=== PATIENT | female | born 1975 | race Caucasian/White ===

== ENCOUNTER 2019-07-06 05:31 | Emergency (ER) | payer OTHER ==
--- NOTE | 2019-07-06 06:02 | ERPHSYRPT ---
- History of Present Illness Historian: patient Exam Limitations: no limitations Patient Subjective Stated Complaint: pt states she has been having abdominal pain since 1999 yesterday, that has worsened overnight. pt has been diarrhea and vomiting and has had pain for last five hours consistantly. Triage Nursing Assessment: pt alert and orietented. rates pain in abdomen Timing/Duration: yesterday Activities at Onset: none Quality: stabbing Abdominal Pain Onset Location: periumbilical Pain Radiation: no radiation Severity of Pain-Max: mild Severity of Pain-Current: mild Modifying Factors: Improves With: vomiting Associated Symptoms: diarrhea Previous symptoms: no prior history Hx Tetanus, Diphtheria Vaccination/Date Given: Yes (UP TO DATE) Hx Influenza Vaccination/Date Given: Yes Hx Pneumococcal Vaccination/Date Given: Yes <MIMA RODRIGUEZ - Last Filed: 07/06/19 06:14> <LISA CLAYTON - Last Filed: 07/06/19 09:53> - History of Present Illness Time Seen by Provider: 07/06/19 06:01 Physician History: N/V/D starting last night around 1999. Only abdominal surgery is a . No falls or trauma. Diarrhea has improved. Patient has continued pain. (MIMA RODRIGUEZ) Allergies/Adverse Reactions: grapefruit Allergy (Verified 01/13/16 18:31) Hives latex Allergy (Verified 06/30/15 12:32) Hives hives on hands Latex, Natural Rubber Allergy (Verified 01/13/16 18:30) morphine Allergy (Verified 01/13/16 15:27) codeine Adverse Reaction (Severe, Verified 01/13/16 18:30) Home Medications: Amlodipine Besylate 5 mg [Norvasc 5 mg] 5 mg PO DAILY 03/27/15 [History] Famotidine 40 mg PO HS 01/13/16 [History] Simvastatin 20 mg PO HS 01/13/16 [History] Citalopram Hydrobromide 20 mg* [ceLEXa 20 MG] 20 mg PO DAILY 07/06/19 [ History] - Review of Systems Constitutional: No Fever, No Chills Eyes: No Symptoms Ears, Nose, & Throat: No Symptoms Respiratory: No Cough, No Dyspnea Cardiac: No Chest Pain, No Edema, No Syncope Abdominal/Gastrointestinal: Abdominal Pain, Nausea, Vomiting, Diarrhea Genitourinary Symptoms: No Dysuria Musculoskeletal: No Back Pain, No Neck Pain Skin: No Rash Neurological: No Dizziness, No Focal Weakness, No Sensory Changes Psychological: No Symptoms Endocrine: No Symptoms All Other Systems: Reviewed and Negative <MIMA RODRIGUEZ - Last Filed: 07/06/19 06:14> - Past Medical History Pertinent Past Medical History: Yes Neurological History: No Pertinent History ENT History: No Pertinent History Cardiac History: High Cholesterol, Hypertension Respiratory History: No Pertinent History Endocrine Medical History: No Pertinent History Musculoskeletal History: No Pertinent History GI Medical History: No Pertinent History, GERD History: No Pertinent History Psycho-Social History: No Pertinent History Female Reproductive Disorders: No Pertinent History, Abnormal Uterine Bleeding, Other Other Medical History: 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 - Past Surgical History Past Surgical History: Yes Neuro Surgical History: No Pertinent History Cardiac: No Pertinent History Respiratory: No Pertinent History Gastrointestinal: No Pertinent History, Other Genitourinary: No Pertinent History Musculoskeletal: No Pertinent History, Other Female Surgical History: Hysterectomy, Tubal Ligation, Section, Other Other Surgical History: 2 , MASS ON OVARY REMOVED - Social History Smoking Status: Current every day smoker How long have you smoked: 20 Exposure to second hand smoke: No Drug Use: none Patient Lives Alone: Yes - Female History Hx Last Menstrual Period: hysterectomy Hx Now: No <MIMA RODRIGUEZ - Last Filed: 07/06/19 06:14> - Physical Exam General Appearance: no apparent distress, alert Eye Exam: PERRL/EOMI, eyes nml inspection Ears, Nose, Throat Exam: normal ENT inspection, pharynx normal, moist mucous membranes Neck Exam: normal inspection, non-tender, supple, full range of motion Respiratory Exam: normal breath sounds, lungs clear, No respiratory distress Cardiovascular Exam: regular rate/rhythm, normal heart sounds Gastrointestinal/Abdomen Exam: soft, tenderness (periumbilical tenderness without rebound or guarding), No mass Back Exam: normal inspection, normal range of motion, No CVA tenderness, No vertebral tenderness Extremity Exam: normal inspection, normal range of motion, pelvis stable Neurologic Exam: alert, oriented x 3, cooperative, normal mood/affect, nml cerebellar function, sensation nml, No motor deficits Skin Exam: normal color, warm, dry SpO2: 100 <MIMA RODRIGUEZ - Last Filed: 07/06/19 06:14> - Nursing Vital Signs Nursing Vital Signs: Initial Vital Signs Temperature 97.9 F 07/06/19 05:34 Pulse Rate 62 07/06/19 05:34 Respiratory Rate 18 07/06/19 05:34 Blood Pressure 177/80 07/06/19 05:34 O2 Sat by Pulse Oximetry 100 07/06/19 05:34 Pain Scale Pain Intensity 8 Ordered Tests: Active Orders 24 hr Category Date Time Status ABDOMEN AND PELVIS W CONTRAST [CT] Stat Exams 07/06/19 06:11 Completed CBC W DIFF Stat Lab 07/06/19 06:10 Completed CMP Stat Lab 07/06/19 06:10 Completed HCG QUALITATIVE,SERUM Stat Lab 07/06/19 06:10 Completed LIPASE Stat Lab 07/06/19 06:10 Completed UA W/RFX UR CULTURE Stat Lab 07/06/19 06:17 Completed Medication Summary Discontinued Medications Generic Name Dose Route Start Last Admin Trade Name Freq PRN Reason Stop Dose Admin Hydromorphone HCl 0.5 mg 07/06/19 07:12 07/06/19 07:18 Hydromorphone 1 Mg/Ml Ampule IV 07/06/19 07:13 0.5 mg STAT ONE Administration Hydromorphone HCl Confirm 07/06/19 07:16 Hydromorphone 1 Mg/Ml Ampule Administered 07/06/19 07:17 Dose 1 mg .ROUTE .STK-MED ONE Sodium Chloride 1,000 mls @ 999 mls/hr 07/06/19 06:08 07/06/19 07:14 Sodium Chloride 0.9% 1000 Ml IV 07/06/19 07:08 Infused .Q1H1M STA Infusion Sodium Chloride Confirm 07/06/19 06:12 Sodium Chloride 0.9% 1000 Ml Administered 07/06/19 06:13 Dose 1,000 mls @ ud .ROUTE .STK-MED ONE Sodium Chloride 1,000 mls @ 999 mls/hr 07/06/19 07:12 07/06/19 08:27 Sodium Chloride 0.9% 1000 Ml IV 07/06/19 08:12 Infused .Q1H1M STA Infusion Sodium Chloride Confirm 07/06/19 07:16 Sodium Chloride 0.9% 1000 Ml Administered 07/06/19 07:17 Dose 1,000 mls @ ud .ROUTE .STK-MED ONE Ketorolac Tromethamine 30 mg 07/06/19 06:08 07/06/19 06:15 Toradol 30 Mg Injection IV 07/06/19 06:09 30 mg STAT ONE Administration Ketorolac Tromethamine Confirm 07/06/19 06:12 Toradol 30 Mg Injection Administered 07/06/19 06:13 Dose 30 mg .ROUTE .STK-MED ONE Ondansetron HCl 4 mg 07/06/19 06:08 07/06/19 06:15 Zofran 4 Mg/2 Ml Vial IV 07/06/19 06:09 4 mg STAT ONE Administration Ondansetron HCl Confirm 07/06/19 06:12 Zofran 4 Mg/2 Ml Vial Administered 07/06/19 06:13 Dose 4 mg .ROUTE .STK-MED ONE Lab/Rad Data: Laboratory Result Diagrams 07/06/19 06:10 07/06/19 06:10 Laboratory Results 07/06/19 07/06/19 07/06/19 Range/Units 09:00 06:17 06:10 WBC (4.0-10.5) K/mm3 RBC (4.1-5.4) M/mm3 Hgb (12.0-16.0) gm/dl Hct (35-47) % MCV (78-100) fl MCH (26-32) pg MCHC (32-36) g/dl RDW (11.5-14.0) % Plt Count (150-450) K/mm3 MPV (6-9.5) fl Gran % (36.0-66.0) % Eos # (Auto) (0-0.5) Absolute Lymphs (auto) (1.0-4.6) Absolute Monos (auto) (0.0-1.3) Lymphocytes % (24.0-44.0) % Monocytes % (0.0-12.0) % Eosinophils % (0.00-5.0) % Basophils % (0.0-0.4) % Absolute Granulocytes (1.4-6.9) Basophils # (0-0.4) Sodium (137-145) mmol/L Potassium (3.5-5.1) mmol/L Chloride (98-107) mmol/L Carbon Dioxide (22-30) mmol/L Anion Gap (5-15) MEQ/L BUN (7-17) mg/dL Creatinine (0.52-1.04) mg/dL Estimated GFR ML/MIN Glucose (74-106) mg/dL Calcium (8.4-10.2) mg/dL Total Bilirubin (0.2-1.3) mg/dL AST (14-36) U/L ALT (0-35) U/L Alkaline Phosphatase (38-126) U/L Serum Total Protein (6.3-8.2) g/dL Albumin (3.5-5.0) g/dL Lipase (23-300) U/L Serum , Qual NEGATIVE (Negative) Urine Color YELLOW (YELLOW) Urine Appearance CLOUDY (CLEAR) Urine pH 8.0 (5-6) Ur Specific [place] 1.021 (1.005-1.025) Urine Protein 100 (Negative) Urine Ketones NEGATIVE (NEGATIVE) Urine Blood NEGATIVE (0-5) Hiram/ul Urine Nitrite NEGATIVE (NEGATIVE) Urine Bilirubin NEGATIVE (NEGATIVE) Urine Urobilinogen NEGATIVE (0-1) mg/dL Ur Leukocyte Esterase NEGATIVE (NEGATIVE) Urine WBC (Auto) 0-2 (0-5) /HPF Urine RBC (Auto) 0-2 (0-2) /HPF U Epithel Cells (Auto) FEW (FEW) /HPF Urine Bacteria (Auto) RARE (NEGATIVE) /HPF Amorphous Crystals MODERATE (NEGATIVE) /HPF Urine Culture Reflexed NO (NO) Urine Glucose >=500 (NEGATIVE) mg/dL Influenza Type A Ag NEGATIVE (NEGATIVE) Influenza Type B Ag NEGATIVE (NEGATIVE) RSV (PCR) NEGATIVE (Negative) Slides for Path Review 07/06/19 07/06/19 Range/Units 06:10 06:10 WBC 17.6 H (4.0-10.5) K/mm3 RBC 5.30 (4.1-5.4) M/mm3 Hgb 16.0 (12.0-16.0) gm/dl Hct 47.9 H (35-47) % MCV 90.4 (78-100) fl MCH 30.2 (26-32) pg MCHC 33.4 (32-36) g/dl RDW 14.4 H (11.5-14.0) % Plt Count 391 (150-450) K/mm3 MPV 10.3 H (6-9.5) fl Gran % 84.7 H (36.0-66.0) % Eos # (Auto) 0.02 (0-0.5) Absolute Lymphs (auto) 1.89 (1.0-4.6) Absolute Monos (auto) 0.75 (0.0-1.3) Lymphocytes % 10.7 L (24.0-44.0) % Monocytes % 4.3 (0.0-12.0) % Eosinophils % 0.1 (0.00-5.0) % Basophils % 0.2 (0.0-0.4) % Absolute Granulocytes 14.95 H (1.4-6.9) Basophils # 0.03 (0-0.4) Sodium 140 (137-145) mmol/L Potassium 3.8 (3.5-5.1) mmol/L Chloride 107 (98-107) mmol/L Carbon Dioxide 25 (22-30) mmol/L Anion Gap 12.1 (5-15) MEQ/L BUN 15 (7-17) mg/dL Creatinine 0.55 (0.52-1.04) mg/dL Estimated GFR > 60.0 ML/MIN Glucose 176 H (74-106) mg/dL Calcium 9.7 (8.4-10.2) mg/dL Total Bilirubin 0.40 (0.2-1.3) mg/dL AST 25 (14-36) U/L ALT 16 (0-35) U/L Alkaline Phosphatase 49 (38-126) U/L Serum Total Protein 7.6 (6.3-8.2) g/dL Albumin 4.2 (3.5-5.0) g/dL Lipase 124 (23-300) U/L Serum , Qual (Negative) Urine Color (YELLOW) Urine Appearance (CLEAR) Urine pH (5-6) Ur Specific [place] (1.005-1.025) Urine Protein (Negative) Urine Ketones (NEGATIVE) Urine Blood (0-5) Hiram/ul Urine Nitrite (NEGATIVE) Urine Bilirubin (NEGATIVE) Urine Urobilinogen (0-1) mg/dL Ur Leukocyte Esterase (NEGATIVE) Urine WBC (Auto) (0-5) /HPF Urine RBC (Auto) (0-2) /HPF U Epithel Cells (Auto) (FEW) /HPF Urine Bacteria (Auto) (NEGATIVE) /HPF Amorphous Crystals (NEGATIVE) /HPF Urine Culture Reflexed (NO) Urine Glucose (NEGATIVE) mg/dL Influenza Type A Ag (NEGATIVE) Influenza Type B Ag (NEGATIVE) RSV (PCR) (Negative) Slides for Path Review YES - Progress Progress: improved <MIMA RODRIGUEZ - Last Filed: 07/06/19 06:14> - Progress Counseled pt/family regarding: lab results, diagnosis, need for follow-up, rad results <LISA CLAYTON - Last Filed: 07/06/19 09:53> - Progress Progress Note: 07/06/19 06:17 DDX includes , SBO, infection, UTI, viral illness -We will obtain basic labs, fluids, IV access -we will consider CT or ultrasound (MIMA RODRIGUEZ) 07/06/19 09:51 pt sx improved. no more n/v/d. pain gone 07/06/19 09:53 ct no acute process (LISA CLAYTON) <MIMA RODRIGUEZ - Last Filed: 07/06/19 06:14> - Departure Departure Disposition: Home Critical Care Time: No <LISA CLAYTON - Last Filed: 07/06/19 09:53> - Departure Clinical Impression: Vomiting and diarrhea Condition: Stable Referrals: CHRISTIANA HEATH [Primary Care Provider] - Additional Instructions: drink plenty of fluids. follow up with primary doctor for further management. Prescriptions: Ondansetron HCl [Zofran] 4 mg PO TID PRN #10 tablet PRN Reason: Nausea/Vomiting
[2019-07-06] MEDS ORDERED: Sodium Chloride 0.9% 1000 ML 1,000 ML IV STA ×2 (06:08→07:12)
[2019-07-06] MEDS ORDERED: Zofran 4 MG/2 ML VIAL IV ONE (06:08)
[2019-07-06] MEDS ORDERED: TORAdol 30 mg Injection IV ONE (06:08)
[2019-07-06] MEDS ORDERED: Sodium Chloride 0.9% 1000 ML 1,000 ML ONE ×2 (06:12→07:16)
[2019-07-06] MEDS ORDERED: Zofran 4 MG/2 ML VIAL ONE (06:12)
[2019-07-06] MEDS ORDERED: TORAdol 30 mg Injection ONE (06:12)
[2019-07-06 06:16] LABS: Absolute Neutrophil Ct (ANC) 14.95 (1.4-6.9); BASOPHIL % 0.2 % (0.0-0.4); Basophil (Absolute #) 0.03 (0-0.4); Eosinophil % 0.1 % (0.00-5.0); Eosinophil (Absolute #) 0.02 (0-0.5); Hematocrit 47.9 % (35-47); Lymphocyte (Absolute #) 1.89 (1.0-4.6); Lymphocytes % 10.7 % (24.0-44.0); Mean Cell Volume 90.4 fl (78-100); Mean Corpuscular Hemoglobin 30.2 pg (26-32); Mean Corpuscular Hgb Concent. 33.4 g/dl (32-36); Mean Platelet Volume 10.3 fl (6-9.5); Monocyte (Absolute #) 0.75 (0.0-1.3); Monocytes % 4.3 % (0.0-12.0); Neutrophil % 84.7 % (36.0-66.0); Platelet Count 391 K/mm3 (150-450); Red Cell Distribution Width 14.4 % (11.5-14.0); White Blood Count 17.6 K/mm3 (4.0-10.5)
[2019-07-06 06:27] LABS: ALBUMIN 4.2 g/dL (3.5-5.0); ALKALINE PHOSPHATASE 49 U/L (38-126); ANION GAP 12.1 MEQ/L (5-15); BLOOD UREA NITROGEN 15 mg/dL (7-17); CHLORIDE 107 mmol/L (98-107); Calcium 9.7 mg/dL (8.4-10.2); Carbon Dioxide 25 mmol/L (22-30); Creatinine 1 0.55 mg/dL (0.52-1.04); Glucose 176 mg/dL (74-106); LIPASE 124 U/L (23-300); Potassium 3.8 mmol/L (3.5-5.1); SGOT/AST 25 U/L (14-36); SGPT/ALT 16 U/L (0-35); SODIUM 140 mmol/L (137-145); Total Protein 7.6 g/dL (6.3-8.2)
[2019-07-06 06:36] LABS: Amourphous Crystal MODERATE /HPF (NEGATIVE); Appearance CLOUDY (CLEAR); Bacteria RARE /HPF (NEGATIVE); Bilirubin NEGATIVE (NEGATIVE); Blood NEGATIVE Ery/ul (0-5); Epithelial Cells FEW /HPF (FEW); Glucose >=500 mg/dL (NEGATIVE); Ketones NEGATIVE (NEGATIVE); Leukocyte Esterase NEGATIVE (NEGATIVE); Nitrite NEGATIVE (NEGATIVE); Protein,Urine Dip 100 (Negative); Specific Gravity 1.021 (1.005-1.025); Urobilinogen NEGATIVE mg/dL (0-1)
[2019-07-06 06:51] LABS: RBC 0-2 /HPF (0-2); WBC 0-2 /HPF (0-5)
[2019-07-06 06:54] LABS: Slide Review 1 YES
[2019-07-06] MEDS ORDERED: Hydromorphone 1 mg/ml Ampule IV ONE (07:12)
[2019-07-06] MEDS ORDERED: Hydromorphone 1 mg/ml Ampule ONE (07:16)
--- NOTE | 2019-07-06 09:17 | XRAY ---
Indication: Periumbilical pain, nausea, vomiting, diarrhea, and elevated WBC. Multiple contiguous axial images obtained through the abdomen and pelvis using 80 cc Isovue 370 contrast only. Comparison: June 16, 2008. Lung bases are clear. Heart is not enlarged. Noncontrasted stomach and bowel loops appear nonobstructed. Normal appendix. Patient reports hysterectomy. No free fluid/air. Both kidneys enhance and excrete with new 1 cm left mid renal cyst. Remaining liver, gallbladder, pancreas, spleen, adrenal glands, kidneys, ureters, and bladder appear unremarkable. There is now mild scattered aortoiliac calcifications. No AAA or pathologic retroperitoneal lymphadenopathy. Osseous structures intact again with minimal degenerative changes throughout the spine. 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 Impression: 1. New 1 cm left renal cyst and stable L5 spondylolysis without spondylolisthesis. 2. Remaining CT abdomen/pelvis with contrast exam is negative. CT DI 10.03
[2019-07-06 09:48] LABS: INFLUENZA A NEGATIVE (NEGATIVE); INFLUENZA B NEGATIVE (NEGATIVE); RESPIRATORY SYNCTIAL VIRUS NEGATIVE (Negative)
[2019-07-06 09:54] VITALS: BP 135/69; PULSE 69; O2SAT 96
== END 2019-07-06 10:05 | disposition home or self-care (01) ==
LOC: ED 05:31
DX: R11.10 Vomiting, unspecified (principal); R19.7 Diarrhea, unspecified; R10.9 Unspecified abdominal pain; Z79.899 Other long term (current) drug therapy; E78.00 Pure hypercholesterolemia, unspecified; I10 Essential (primary) hypertension
CPT/HCPCS: 36000; 36415; 74177; 80053; 81001; 81025; 83690; 85025; 87631; 96360; 96374; 96375; 99284; J1170; J1885; J2405

== ENCOUNTER 2019-07-08 22:20 | Emergency (ER) | payer OTHER ==
--- NOTE | 2019-07-08 22:32 | ERPHSYRPT ---
- History of Present Illness Time Seen by Provider: 07/08/19 22:31 Source: patient, family () Exam Limitations: clinical condition (pain) Patient Subjective Stated Complaint: Pt is. here with abdominal pain Physician History: Pt is here with c/c of abdominal pain centrally and periumbilically with nausea and occasional vomiting. Pt notes that she was here with the same thing tuesday evening. Pt had a CT that night sand I have reviewed that report. Pt notes that she had eaten and gone to sleep but woke back up with the pain at 20:30. Pt rates her pain at a 10/10. Pt still has her gallbladder and appendix. Pt is a bit irritable about having to explain her pain. Presenting Symptoms: vomiting, abdominal pain Timing/Duration: today, day(s) (hurts today and hurt on tuesday 2 days ago. The pain is bad now. ) Severity of Pain-Max: severe Severity of Pain-Current: severe Modifying Factors: Improves With: nothing Associated Symptoms: nausea, vomiting, abdominal pain Allergies/Adverse Reactions: codeine Allergy (Verified 07/08/19 22:46) morphine Allergy (Verified 07/08/19 22:46) - Review of Systems Constitutional: Fatigue, Malaise Eyes: No Symptoms Ears, Nose, & Throat: No Symptoms Respiratory: No Symptoms Cardiac: No Symptoms Abdominal/Gastrointestinal: Abdominal Pain, Nausea, Vomiting, Constipation, No Diarrhea, No Hematemesis, No Hematochezia, No Dysphagia Genitourinary Symptoms: No Symptoms, No Dysuria, No Frequency, No Hematuria, No Hesitancy Musculoskeletal: Back Pain, No No Symptoms Skin: No Symptoms Neurological: No Symptoms Psychological: No Symptoms Endocrine: No Symptoms Hematologic/Lymphatic: No Anemia, No Easy Bleeding All Other Systems: Reviewed and Negative - Past Medical History Pertinent Past Medical History: No Neurological History: No Pertinent History ENT History: No Pertinent History Cardiac History: No Pertinent History Respiratory History: No Pertinent History Endocrine Medical History: Diabetes Type II Musculoskeletal History: No Pertinent History GI Medical History: No Pertinent History Psycho-Social History: No Pertinent History Female Reproductive Disorders: No Pertinent History - Past Surgical History Neuro Surgical History: No Pertinent History Cardiac: No Pertinent History Respiratory: No Pertinent History Gastrointestinal: No Pertinent History Genitourinary: No Pertinent History Musculoskeletal: No Pertinent History - Social History Smoking Status: Current every day smoker Alcohol Use: None - Female History Hx Now: No - Nursing Vital Signs Nursing Vital Signs: Initial Vital Signs Temperature 37 F 07/08/19 22:36 Pulse Rate 63 07/08/19 22:36 Respiratory Rate 20 07/08/19 22:36 Blood Pressure 203/97 07/08/19 22:36 O2 Sat by Pulse Oximetry 100 07/08/19 22:36 Pain Scale Pain Intensity 10 - Physical Exam General Appearance: moderate distress, irritable Head, Eyes, Nose, & Throat Exam: head inspection normal, EOMI Neck Exam: normal inspection, non-tender, supple Respiratory Exam: normal breath sounds, lungs clear, airway intact, No chest tenderness, No respiratory distress Cardiovascular Exam: regular rate/rhythm, normal heart sounds, No murmur, No friction rub, No gallop, No tachycardia, No bradycardia Gastrointestinal Exam: soft, normal bowel sounds, tenderness (periumbilical area pain and worse with palp.), guarding, No distention, No mass, No pulsatile mass, No hernia, No hepatomegaly, No organomegaly, No bruit Extremities Exam: normal inspection, No edema, No tenderness, No limited range of motion Neurologic Exam: alert, cooperative, 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 ), No confusion, No lethargy Skin Exam: normal color, warm, dry, well perfused, No rash Lymphatic Exam: No adenopathy SpO2 Interpretation: normal Spo2: 100 O2 Delivery: Room Air - Course Nursing assessment & vital signs reviewed: Yes Ordered Tests: Active Orders 24 hr Category Date Time Status ABDOMEN AND PELVIS W/0 CONTRAS [CT] Stat Exams 07/09/19 00:01 Taken AMYLASE Stat Lab 07/08/19 23:09 Completed CBC W DIFF Stat Lab 07/08/19 23:09 Completed CMP Stat Lab 07/08/19 23:09 Completed HCG QUALITATIVE,SERUM Stat Lab 07/08/19 23:09 Completed LIPASE Stat Lab 07/08/19 23:09 Completed Lactic Acid Stat Lab 07/08/19 23:15 Completed UA W/RFX UR CULTURE Stat Lab 07/09/19 02:00 Completed Medication Summary Discontinued Medications Generic Name Dose Route Start Last Admin Trade Name Freq PRN Reason Stop Dose Admin Dicyclomine HCl 20 mg 07/09/19 10:00 07/09/19 01:34 Bentyl 20 Mg PO 08/08/19 09:59 20 mg QID DEUCE Administration Dicyclomine HCl Confirm 07/09/19 01:32 Bentyl 20 Mg Administered 07/09/19 01:33 Dose 20 mg .ROUTE .STK-MED ONE Ceftriaxone Sodium/Dextrose 1 g in 50 mls @ 100 mls/hr 07/09/19 02:47 03:03 Rocephin 1 Gm-D5w 50 Ml Bag IV 07/09/19 03:16 100 mls/hr STAT STA 100 mls/hr Administration Ceftriaxone Sodium/Dextrose Confirm 07/09/19 02:59 Rocephin 1 Gm-D5w 50 Ml Bag Administered 07/09/19 03:00 Dose 1 g in 50 mls @ ud IV .STK-MED ONE Ketorolac Tromethamine 30 mg 07/08/19 22:53 07/08/19 23:08 Toradol 30 Mg Injection IV 07/08/19 22:54 30 mg STAT ONE Administration Ketorolac Tromethamine Confirm 07/08/19 23:01 Toradol 30 Mg Injection Administered 07/08/19 23:02 Dose 30 mg .ROUTE .STK-MED ONE Ondansetron HCl 4 mg 07/08/19 22:53 07/08/19 23:08 Zofran 4 Mg/2 Ml Vial IV 07/08/19 22:54 4 mg STAT ONE Administration Ondansetron HCl Confirm 07/08/19 23:01 Zofran 4 Mg/2 Ml Vial Administered 07/08/19 23:02 Dose 4 mg .ROUTE .STK-MED ONE Pantoprazole Sodium 40 mg 07/08/19 22:53 07/08/19 23:08 Protonix 40 Mg Iv IV 07/08/19 22:54 40 mg STAT ONE Administration Pantoprazole Sodium Confirm 07/08/19 23:01 Protonix 40 Mg Iv Administered 07/08/19 23:02 Dose 40 mg IV .STK-MED ONE Prochlorperazine Edisylate Confirm 07/09/19 00:20 Compazine 10 Mg/2 Ml Administered 07/09/19 00:21 Dose 10 mg .ROUTE .STK-MED ONE Prochlorperazine Edisylate 10 mg 07/09/19 00:20 07/09/19 00:35 Compazine 10 Mg/2 Ml IV 07/09/19 00:21 10 mg STAT ONE Administration Lab/Rad Data: Laboratory Result Diagrams 07/08/19 23:09 07/08/19 23:09 Laboratory Results 07/09/19 07/08/19 07/08/19 Range/Units 02:00 23:15 23:09 WBC (4.0-10.5) K/mm3 RBC (4.1-5.4) M/mm3 Hgb (12.0-16.0) gm/dl Hct (35-47) % MCV (78-100) fl MCH (26-32) pg MCHC (32-36) g/dl RDW (11.5-14.0) % Plt Count (150-450) K/mm3 MPV (6-9.5) fl Gran % (36.0-66.0) % Eos # (Auto) (0-0.5) Absolute Lymphs (auto) (1.0-4.6) Absolute Monos (auto) (0.0-1.3) Lymphocytes % (24.0-44.0) % Monocytes % (0.0-12.0) % Eosinophils % (0.00-5.0) % Basophils % (0.0-0.4) % Absolute Granulocytes (1.4-6.9) Basophils # (0-0.4) Sodium (137-145) mmol/L Potassium (3.5-5.1) mmol/L Chloride (98-107) mmol/L Carbon Dioxide (22-30) mmol/L Anion Gap (5-15) MEQ/L BUN (7-17) mg/dL Creatinine (0.52-1.04) mg/dL Estimated GFR ML/MIN Glucose (74-106) mg/dL Lactic Acid 1.3 (0.4-2.0) Calcium (8.4-10.2) mg/dL Total Bilirubin (0.2-1.3) mg/dL AST (14-36) U/L ALT (0-35) U/L Alkaline Phosphatase (38-126) U/L Serum Total Protein (6.3-8.2) g/dL Albumin (3.5-5.0) g/dL Amylase (30-110) U/L Lipase (23-300) U/L Serum , Qual NEGATIVE (Negative) Urine Color STRAW (YELLOW) Urine Appearance CLEAR (CLEAR) Urine pH 7.0 (5-6) Ur Specific [place] 1.013 (1.005-1.025) Urine Protein 100 (Negative) Urine Ketones NEGATIVE (NEGATIVE) Urine Blood NEGATIVE (0-5) Hiram/ul Urine Nitrite NEGATIVE (NEGATIVE) Urine Bilirubin NEGATIVE (NEGATIVE) Urine Urobilinogen NEGATIVE (0-1) mg/dL Ur Leukocyte Esterase NEGATIVE (NEGATIVE) Urine WBC (Auto) 0-2 (0-5) /HPF Urine RBC (Auto) 0-2 (0-2) /HPF U Epithel Cells (Auto) NONE (FEW) /HPF Urine Bacteria (Auto) RARE (NEGATIVE) /HPF Urine Mucus (Auto) SLIGHT (NEGATIVE) /HPF Urine Culture Reflexed NO (NO) Urine Glucose >=500 (NEGATIVE) mg/dL 07/08/19 07/08/19 Range/Units 23:09 23:09 WBC 16.8 H (4.0-10.5) K/mm3 RBC 5.19 (4.1-5.4) M/mm3 Hgb 15.9 (12.0-16.0) gm/dl Hct 47.0 (35-47) % MCV 90.6 (78-100) fl MCH 30.6 (26-32) pg MCHC 33.8 (32-36) g/dl RDW 14.1 H (11.5-14.0) % Plt Count 376 (150-450) K/mm3 MPV 9.9 H (6-9.5) fl Gran % 68.0 H (36.0-66.0) % Eos # (Auto) 0.36 (0-0.5) Absolute Lymphs (auto) 3.46 (1.0-4.6) Absolute Monos (auto) 1.50 H (0.0-1.3) Lymphocytes % 20.6 L (24.0-44.0) % Monocytes % 8.9 (0.0-12.0) % Eosinophils % 2.1 (0.00-5.0) % Basophils % 0.4 (0.0-0.4) % Absolute Granulocytes 11.44 H (1.4-6.9) Basophils # 0.07 (0-0.4) Sodium 140 (137-145) mmol/L Potassium 4.1 (3.5-5.1) mmol/L Chloride 107 (98-107) mmol/L Carbon Dioxide 27 (22-30) mmol/L Anion Gap 11.3 (5-15) MEQ/L BUN 16 (7-17) mg/dL Creatinine 0.74 (0.52-1.04) mg/dL Estimated GFR > 60.0 ML/MIN Glucose 164 H (74-106) mg/dL Lactic Acid (0.4-2.0) Calcium 9.2 (8.4-10.2) mg/dL Total Bilirubin 0.30 (0.2-1.3) mg/dL AST 26 (14-36) U/L ALT 20 (0-35) U/L Alkaline Phosphatase 51 (38-126) U/L Serum Total Protein 7.2 (6.3-8.2) g/dL Albumin 4.0 (3.5-5.0) g/dL Amylase 55 (30-110) U/L Lipase 51 (23-300) U/L Serum , Qual (Negative) Urine Color (YELLOW) Urine Appearance (CLEAR) Urine pH (5-6) Ur Specific [place] (1.005-1.025) Urine Protein (Negative) Urine Ketones (NEGATIVE) Urine Blood (0-5) Hiram/ul Urine Nitrite (NEGATIVE) Urine Bilirubin (NEGATIVE) Urine Urobilinogen (0-1) mg/dL Ur Leukocyte Esterase (NEGATIVE) Urine WBC (Auto) (0-5) /HPF Urine RBC (Auto) (0-2) /HPF U Epithel Cells (Auto) (FEW) /HPF Urine Bacteria (Auto) (NEGATIVE) /HPF Urine Mucus (Auto) (NEGATIVE) /HPF Urine Culture Reflexed (NO) Urine Glucose (NEGATIVE) mg/dL - Progress Progress: improved Progress Note: 07/09/19 03:05 Pt's pain improved with Toradol, and bentyl. I gave pt a dose of Rocephin as her WBC's were 16.8 and had been even higher when she was here a few days ago. It would lend to an infection somewhere but CT didn't show one. - Departure Departure Disposition: Home Clinical Impression: Abdominal pain Condition: Stable Critical Care Time: No Referrals: CHRISTIANA HEATH [Primary Care Provider] - Instructions: Acute Abdomen (Belly Pain) Additional Instructions: Take the prescriptions given for Bentyl and Ketoralac as well as Keflex and follow up with your primary care doctor in the next 2-7 days. Return to the ER with emergent medical problems. Prescriptions: Ketorolac Tromethamine [Toradol] 10 mg PO Q8H PRN PRN #10 tablet PRN Reason: Pain Cephalexin Mh 500 mg [Keflex 500 mg] 500 mg PO Q8H #21 capsule Dicyclomine HCl 20 mg [Bentyl 20 mg] 20 mg PO ACHS #28 tablet
[2019-07-08] MEDS ORDERED: PROTONIX 40 MG IV IV ONE ×2 (22:53→23:01)
[2019-07-08] MEDS ORDERED: TORAdol 30 mg Injection IV ONE (22:53)
[2019-07-08] MEDS ORDERED: Zofran 4 MG/2 ML VIAL IV ONE (22:53)
[2019-07-08] MEDS ORDERED: TORAdol 30 mg Injection ONE (23:01)
[2019-07-08] MEDS ORDERED: Zofran 4 MG/2 ML VIAL ONE (23:01)
[2019-07-08 23:13] LABS: Absolute Neutrophil Ct (ANC) 11.44 (1.4-6.9); BASOPHIL % 0.4 % (0.0-0.4); Basophil (Absolute #) 0.07 (0-0.4); Eosinophil % 2.1 % (0.00-5.0); Eosinophil (Absolute #) 0.36 (0-0.5); Hemoglobin 15.9 gm/dl (12.0-16.0); Lymphocyte (Absolute #) 3.46 (1.0-4.6); Lymphocytes % 20.6 % (24.0-44.0); Mean Cell Volume 90.6 fl (78-100); Mean Corpuscular Hemoglobin 30.6 pg (26-32); Mean Corpuscular Hgb Concent. 33.8 g/dl (32-36); Mean Platelet Volume 9.9 fl (6-9.5); Monocytes % 8.9 % (0.0-12.0); Platelet Count 376 K/mm3 (150-450); Red Blood Count 5.19 M/mm3 (4.1-5.4); Red Cell Distribution Width 14.1 % (11.5-14.0); White Blood Count 16.8 K/mm3 (4.0-10.5)
[2019-07-08 23:15] VITALS: PULSE 55
[2019-07-08 23:24] LABS: ALKALINE PHOSPHATASE 51 U/L (38-126); AMYLASE 55 U/L (30-110); ANION GAP 11.3 MEQ/L (5-15); BLOOD UREA NITROGEN 16 mg/dL (7-17); CHLORIDE 107 mmol/L (98-107); Calcium 9.2 mg/dL (8.4-10.2); Carbon Dioxide 27 mmol/L (22-30); Creatinine 1 0.74 mg/dL (0.52-1.04); Glucose 164 mg/dL (74-106); LIPASE 51 U/L (23-300); Potassium 4.1 mmol/L (3.5-5.1); SGOT/AST 26 U/L (14-36); SGPT/ALT 20 U/L (0-35); SODIUM 140 mmol/L (137-145); Total Protein 7.2 g/dL (6.3-8.2)
[2019-07-09] MEDS ORDERED: Compazine 10 MG/2 ML IV ONE (00:20)
[2019-07-09] MEDS ORDERED: Compazine 10 MG/2 ML ONE (00:20)
[2019-07-09] MEDS ORDERED: BENTYL 20 MG ONE (01:32)
[2019-07-09 02:13] LABS: Appearance CLEAR (CLEAR); Bacteria RARE /HPF (NEGATIVE); Bilirubin NEGATIVE (NEGATIVE); Blood NEGATIVE Ery/ul (0-5); Glucose >=500 mg/dL (NEGATIVE); Ketones NEGATIVE (NEGATIVE); Leukocyte Esterase NEGATIVE (NEGATIVE); Mucus SLIGHT /HPF (NEGATIVE); Nitrite NEGATIVE (NEGATIVE); Protein,Urine Dip 100 (Negative); RBC 0-2 /HPF (0-2); Specific Gravity 1.013 (1.005-1.025); Urobilinogen NEGATIVE mg/dL (0-1); WBC 0-2 /HPF (0-5)
[2019-07-09] MEDS ORDERED: ROCEPHIN 1 Gm-D5w 50 ml Bag** 1 G/50 ML IVPB IV STA (02:47)
[2019-07-09] MEDS ORDERED: ROCEPHIN 1 Gm-D5w 50 ml Bag** 1 G/50 ML IVPB IV ONE (02:59)
[2019-07-09 03:14] VITALS: BP 166/76
[2019-07-09 07:51] VITALS: O2SAT 100
--- NOTE | 2019-07-09 09:09 | XRAY ---
Indication: Abdominal pain 3 days. Nausea and vomiting. Elevated WBC. Multiple contiguous axial images obtained through the abdomen and pelvis using dilute Gastrografin oral contrast only as ordered. Comparison: None Lung bases are clear. Heart is not enlarged. Contrasted stomach and bowel loops appear nonobstructed. Normal appendix. Mild scattered fecal debris predominantly in the ascending and transverse colon. No free fluid/air. Remaining liver, gallbladder, pancreas, spleen, adrenal glands, kidneys, ureters, bladder, and uterus appear unremarkable for noncontrast exam. Mild scattered aortoiliac calcifications without AAA. Osseous structures intact with incidental minimal degenerative changes throughout the thoracolumbar spine and bilateral L5 spondylolysis without spondylolisthesis. Impression: 1. L5 spondylolysis without spondylolisthesis. 2. Mild fecal stasis without obstruction. 3. Remaining CT abdomen/pelvis without contrast exam is negative. Comment: Preliminary interpretation was made by [facility]. No critical discrepancy. CTDI 8.73
[2019-07-09] MEDS ORDERED: BENTYL 20 MG PO SCH (10:00)
== END 2019-07-09 03:50 | disposition home or self-care (01) ==
LOC: ED 22:20 → MERGE 22:20 → ED 07-09 03:50
DX: R10.9 Unspecified abdominal pain (principal); R11.2 Nausea with vomiting, unspecified; E11.9 Type 2 diabetes mellitus without complications
CPT/HCPCS: 36000; 36415; 74176; 80053; 81001; 81025; 82150; 83605; 83690; 85025; 96365; 96374; 96375; 99284; J0696; J1885; J2405; A9270-GY

== ENCOUNTER 2023-08-12 11:55 | Emergency (ER) | payer OTHER ==
[2023-08-12] MEDS ORDERED: Adenocard IV 6 MG/2 ML IV ONE ×2 (12:00→12:08)
--- NOTE | 2023-08-12 12:07 | ERPHSYRPT ---
- History of Present Illness Time Seen by Provider: 08/12/23 12:00 Source: patient, family Exam Limitations: no limitations Physician History: This is a 48-year-old overweight white female patient who has seen charge aide Dr. Ashton in the distant past, and presents to the emergency department with palpitations, associated shortness of breath and dizziness. Patient i ntermittently over several years has had these types of episodes but they are brief. She has never had associated shortness of breath or dizziness with them. She has never been to the emergency department. She has never had them persist. Today's episode began approximately 11 AM, 1 hour prior to arrival. Patient denies any new medication. Patient has not been ill per her report. On arrival to the emergency department her initial twelve-lead EKG shows narrow QRS monophasic supraventricular tachycardia with a heart rate in the 190s. Systolic blood pressures in the 150s. Room air oxygenation saturation levels 96 to 98%. Timing/Duration: today, other (Persistent) Activities at Onset: none Chest Pain Radiation: no radiation Severity of Pain-Max: none Severity of Pain-Current: none Modifying Factors: Improves With: nothing Nitro Today/Relief: no nitro taken today Aspirin Treatment Today: no aspirin today Associated Symptoms: shortness of breath, other (Dizzy) Allergies/Adverse Reactions: grapefruit Allergy (Verified 08/12/23 12:22) Hives latex Allergy (Verified 08/12/23 12:22) Hives hives on hands Latex, Natural Rubber Allergy (Verified 08/12/23 12:22) morphine Allergy (Verified 08/12/23 12:22) codeine Adverse Reaction (Severe, Verified 08/12/23 12:22) Home Medications: Famotidine 40 mg PO HS 01/13/16 [History] Simvastatin 20 mg PO HS 01/13/16 [History] Famotidine [Pepcid] 40 mg PO DAILY 08/12/23 [History] Losartan Potassium 25 mg PO DAILY 08/12/23 [History] Tirzepatide [Mounjaro] 2.5 mg SQ WEEKLY 08/12/23 [History] Vilazodone HCl 40 mg PO DAILY 08/12/23 [History] Hx Tetanus, Diphtheria Vaccination/Date Given: Yes (UP TO DATE) Hx Influenza Vaccination/Date Given: Yes Hx Pneumococcal Vaccination/Date Given: Yes Travel Risk - International Travel Have you traveled outside of the country in past 3 weeks: No - Coronavirus Screening Are you exhibiting any of the following symptoms?: No Close contact with a COVID-19 positive Pt in past 14-21 Days: No - Review of Systems Constitutional: No Symptoms Eyes: No Symptoms Ears, Nose, & Throat: No Symptoms Respiratory: Dyspnea Cardiac: Palpitations Abdominal/Gastrointestinal: No Symptoms Genitourinary Symptoms: No Symptoms Musculoskeletal: No Symptoms Skin: No Symptoms Neurological: Dizziness Psychological: No Symptoms Endocrine: No Symptoms Hematologic/Lymphatic: No Symptoms Immunological/Allergic: No Symptoms All Other Systems: Reviewed and Negative - Past Medical History Pertinent Past Medical History: Yes Neurological History: No Pertinent History ENT History: No Pertinent History Cardiac History: High Cholesterol, Hypertension, No Pertinent History Respiratory History: No Pertinent History Endocrine Medical History: No Pertinent History, Diabetes Type II Musculoskeletal History: No Pertinent History GI Medical History: No Pertinent History, GERD History: No Pertinent History Psycho-Social History: No Pertinent History Female Reproductive Disorders: No Pertinent History, Abnormal Uterine Bleeding, Other Other Medical History: 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 - Past Surgical History Past Surgical History: Yes Neuro Surgical History: No Pertinent History Cardiac: No Pertinent History Respiratory: No Pertinent History Gastrointestinal: No Pertinent History, Other Genitourinary: No Pertinent History Musculoskeletal: No Pertinent History, Other Female Surgical History: Hysterectomy, Tubal Ligation, Section, Other Other Surgical History: 2 , MASS ON OVARY REMOVED - Social History Smoking Status: Current every day smoker How long have you smoked: 20 Exposure to second hand smoke: No Alcohol Use: None Drug Use: none Patient Lives Alone: Yes - Nursing Vital Signs Nursing Vital Signs: Initial Vital Signs Pulse Rate 190 H 08/12/23 11:58 Respiratory Rate 24 08/12/23 11:58 Blood Pressure 154/96 08/12/23 11:58 O2 Sat by Pulse Oximetry 97 08/12/23 11:58 Pain Scale Pain Intensity 0 - Physical Exam General Appearance: mild distress, alert, anxiety Eye Exam: PERRL/EOMI, eyes nml inspection Ears, Nose, Throat Exam: normal ENT inspection, moist mucous membranes Neck Exam: normal inspection, non-tender, supple, full range of motion Respiratory Exam: normal breath sounds, lungs clear, airway intact, No chest tenderness, No respiratory distress Cardiovascular Exam: tachycardia Gastrointestinal/Abdomen Exam: soft, normal bowel sounds, No tenderness Pelvic Exam: not done Rectal Exam: not done Back Exam: normal inspection, normal range of motion, No CVA tenderness, No vertebral tenderness Extremity Exam: normal inspection, normal range of motion, pelvis stable Neurologic Exam: alert, oriented x 3, cooperative, braid folder II-XII nml as tested, normal mood/affect, nml cerebellar function, nml station & gait, sensation nml Skin Exam: normal color, warm, dry Lymphatic Exam: No adenopathy SpO2 Interpretation: normal O2 Delivery: Room Air - Course Nursing assessment & vital signs reviewed: Yes EKG Interpreted by Me: RATE (178), SVT, NORMAL AXIS, NORMAL INTERVALS, NORMAL QRS, NORMAL ST-T, Other (No acute ischemic changes on today's twelve-lead EKG) Ordered Tests: Active Orders 24 hr Category Date Time Status EKG-ER Only STAT Care 08/12/23 12:07 Active IV Insertion STAT Care 08/12/23 12:07 Active Pulse Oximetry (ED) STAT Care 08/12/23 12:07 Active CBC W DIFF Stat Lab 08/12/23 12:30 Completed CMP Stat Lab 08/12/23 12:30 Completed D-DIMER QUANTITATIVE Stat Lab 08/12/23 12:30 Completed MAGNESIUM Stat Lab 08/12/23 12:30 Completed NT PRO BNPII Stat Lab 08/12/23 12:30 Completed TROPONIN Q4H Lab 08/12/23 12:30 Completed TROPONIN Q4H Lab 08/12/23 16:15 Ordered TROPONIN Q4H Lab 08/12/23 20:15 Ordered UA W/RFX UR CULTURE Stat Lab 08/12/23 12:50 Completed Holter Monitor ONCE RT 08/12/23 13:17 Active Standby ROUTINE RT 08/12/23 12:08 Active Medication Summary Discontinued Medications Generic Name Dose Route Start Last Admin Trade Name Freq PRN Reason Stop Dose Admin Adenosine Confirm 08/12/23 12:00 Adenosine 6 Mg/2 Ml Vial Administered 08/12/23 12:01 Dose 18 mg IV .STK-MED ONE Adenosine 6 mg 08/12/23 12:08 08/12/23 12:35 Adenosine 6 Mg/2 Ml Vial IV 08/12/23 12:09 6 mg STAT ONE Administration Lab/Rad Data: Laboratory Result Diagrams 08/12/23 12:30 08/12/23 12:30 Laboratory Results 08/12/23 08/12/23 08/12/23 Range/Units 12:50 12:30 12:30 WBC (4.0-10.5) x10^3/uL RBC (4.1-5.4) x10^6/uL Hgb (12.0-16.0) g/dL Hct (35-47) % MCV (78-100) fL MCH (26-32) pg MCHC (32-36) g/dL RDW (11.5-14.0) % Plt Count (150-450) x10^3/uL MPV (7.5-11.0) fL Gran % (36.0-66.0) % Immature Gran % (Auto) (0.00-0.4) % Nucleat RBC Rel Count (0.00-0.1) % Eos # (Auto) (0-0.5) x10^3/uL Immature Gran # (Auto) (0.00-0.03) x10^3u/L Absolute Lymphs (auto) (1.0-4.6) x10^3/uL Absolute Monos (auto) (0.0-1.3) x10^3/uL Absolute Nucleated RBC (0.00-0.01) x10^3u/L Lymphocytes % (24.0-44.0) % Monocytes % (0.0-12.0) % Eosinophils % (0.00-5.0) % Basophils % (0.0-0.4) % Absolute Granulocytes (1.4-6.9) x10^3/uL Basophils # (0-0.4) x10^3/uL D-Dimer 0.33 (0.0-0.50) mg/L Sodium (137-145) mmol/L Potassium (3.5-5.1) mmol/L Chloride (98-107) mmol/L Carbon Dioxide (22-30) mmol/L Anion Gap (5-15) MEQ/L BUN (7-17) mg/dL Creatinine (0.52-1.04) mg/dL Estimated GFR ML/MIN Glucose (74-106) mg/dL Calcium (8.4-10.2) mg/dL Magnesium (1.6-2.3) mg/dL Total Bilirubin (0.2-1.3) mg/dL AST (14-36) U/L ALT (0-35) U/L Alkaline Phosphatase (38-126) U/L Troponin I < 0.012 (0.000-0.034) ng/mL NT-Pro-B Natriuret Pep 28.1 (<300) pg/mL Serum Total Protein (6.3-8.2) g/dL Albumin (3.5-5.0) g/dL Urine Color Yellow (Yellow) Urine Appearance Clear (Clear) Urine pH 7.0 (4.6-8.0) Ur Specific [place] <=1.005 (1.005-1.030) Urine Protein 30 (Negative) Urine Glucose (UA) Negative (Negative) mg/dL Urine Ketones Negative (Negative) Urine Blood Negative (Negative) Urine Nitrite Negative (Negative) Urine Bilirubin Negative (Negative) Urine Urobilinogen 0.2 (0.2) mg/dL Ur Leukocyte Esterase Negative (Negative) U Hyaline Cast (Auto) NONE SEEN (0-2) /LPF Urine Microscopic RBC 0-2 (0-5) /HPF Urine Microscopic WBC 0-2 (0-5) /HPF Ur Epithelial Cells None Seen (None Seen) /HPF Urine Bacteria None Seen (None Seen) /HPF Urine Culture Reflexed NO (NO) 08/12/23 08/12/23 Range/Units 12:30 12:30 WBC 12.6 H (4.0-10.5) x10^3/uL RBC 5.37 (4.1-5.4) x10^6/uL Hgb 16.2 H (12.0-16.0) g/dL Hct 48.5 H (35-47) % MCV 90.3 (78-100) fL MCH 30.2 (26-32) pg MCHC 33.4 (32-36) g/dL RDW 13.2 (11.5-14.0) % Plt Count 481 H (150-450) x10^3/uL MPV 10.7 (7.5-11.0) fL Gran % 48.9 (36.0-66.0) % Immature Gran % (Auto) 0.3 (0.00-0.4) % Nucleat RBC Rel Count 0.0 (0.00-0.1) % Eos # (Auto) 0.28 (0-0.5) x10^3/uL Immature Gran # (Auto) 0.04 H (0.00-0.03) x10^3u/L Absolute Lymphs (auto) 4.80 H (1.0-4.6) x10^3/uL Absolute Monos (auto) 1.19 (0.0-1.3) x10^3/uL Absolute Nucleated RBC 0.00 (0.00-0.01) x10^3u/L Lymphocytes % 38.2 (24.0-44.0) % Monocytes % 9.5 (0.0-12.0) % Eosinophils % 2.2 (0.00-5.0) % Basophils % 0.9 (0.0-0.4) % Absolute Granulocytes 6.14 (1.4-6.9) x10^3/uL Basophils # 0.11 (0-0.4) x10^3/uL D-Dimer (0.0-0.50) mg/L Sodium 138 (137-145) mmol/L Potassium 4.3 (3.5-5.1) mmol/L Chloride 106 (98-107) mmol/L Carbon Dioxide 27 (22-30) mmol/L Anion Gap 8.5 (5-15) MEQ/L BUN 9 (7-17) mg/dL Creatinine 0.65 (0.52-1.04) mg/dL Estimated GFR 107.2 ML/MIN Glucose 132 H (74-106) mg/dL Calcium 9.9 (8.4-10.2) mg/dL Magnesium 2.0 (1.6-2.3) mg/dL Total Bilirubin 0.50 (0.2-1.3) mg/dL AST 24 (14-36) U/L ALT 17 (0-35) U/L Alkaline Phosphatase 48 (38-126) U/L Troponin I (0.000-0.034) ng/mL NT-Pro-B Natriuret Pep (<300) pg/mL Serum Total Protein 7.4 (6.3-8.2) g/dL Albumin 4.2 (3.5-5.0) g/dL Urine Color (Yellow) Urine Appearance (Clear) Urine pH (4.6-8.0) Ur Specific [place] (1.005-1.030) Urine Protein (Negative) Urine Glucose (UA) (Negative) mg/dL Urine Ketones (Negative) Urine Blood (Negative) Urine Nitrite (Negative) Urine Bilirubin (Negative) Urine Urobilinogen (0.2) mg/dL Ur Leukocyte Esterase (Negative) U Hyaline Cast (Auto) (0-2) /LPF Urine Microscopic RBC (0-5) /HPF Urine Microscopic WBC (0-5) /HPF Ur Epithelial Cells (None Seen) /HPF Urine Bacteria (None Seen) /HPF Urine Culture Reflexed (NO) - Progress Progress: improved, re-examined Air Movement: good Progress Note: 08/12/23 12:15 This patient's medical issue is 1 of moderate to high complexity. The level of complexity and the workup performed is based on review of the patient's past medical history, review of the patient's medication list, review of the patient's drug allergy list, history of present illness and physical findings on examination. The patient was symptomatic with dizziness and shortness of breath associated with her SVT. Her systolic blood pressure was in the 150s. We attempted vagal maneuver, we had the patient breathe through a straw, we had the patient cough and Valsalva. None of these measures were successful. Therefore we proceeded with adenosine 6 mg intravenously. This converted the patient's rate to 103 bpm in a sinus tachycardia rhythm. Workup in this patient includes intravenous line, 6 mg intravenous adenosine, CBC, CMP, D-dimer, BNP, troponin level, twelve-lead EKG, urinalysis, viral swabs and monotest. 08/12/23 12:17 I interpreted the repeat twelve-lead EKG after the patient received 6 mg of intravenous adenosine. It was performed on 08/12/2023 at 12:03 PM. Heart rate is 103 bpm. Patient's rhythm is sinus tachycardia. There is normal axis deviation. Normal intervals, normal QRS. There is no evidence of ischemia. 08/12/23 13:28 I reviewed the patient's laboratory data results. There is no evidence of any acute, emergent findings on her laboratory results. Patient has been having these intermittent episodes of palpitations. We will place her on a Holter monitor and make arrangements for an appointment to see her charge aide. Blood Culture(s) Obtained: No Antibiotics given: No Counseled pt/family regarding: lab results, diagnosis, need for follow-up Medical Desision Making - Independent Historian Additional History obtained from: Spouse - Diagnostic Testing Diagnostic test were ordered, analyzed, and reviewed by me: Yes - Risk of complications Low Risk: Low risk of morbidity from additional dx testing or treatment - Departure Clinical Impression: SVT (supraventricular tachycardia) Condition: Stable Critical Care Time: Yes Critical Care Time(excluding separately billable procedures): Critical 30-74 mins (45) Referrals: CHRISTIANA HEATH [Primary Care Provider] - Follow up/PCP as directed Additional Instructions: Keep your Holter monitor in place and follow the instructions. Follow-up with your charge aide appointment on the specific date and time arranged for you. Continue your other medication as prescribed.
[2023-08-12 12:49] LABS: Absolute Neutrophil Ct (ANC) 6.14 x10^3/uL (1.4-6.9); BASOPHIL % 0.9 % (0.0-0.4); Basophil (Absolute #) 0.11 x10^3/uL (0-0.4); Eosinophil % 2.2 % (0.00-5.0); Eosinophil (Absolute #) 0.28 x10^3/uL (0-0.5); Hematocrit 48.5 % (35-47); Hemoglobin 16.2 g/dL (12.0-16.0); IMMATURE GRAN # 0.04 x10^3u/L (0.00-0.03); IMMATURE GRAN % 0.3 % (0.00-0.4); Lymphocytes % 38.2 % (24.0-44.0); Mean Cell Volume 90.3 fL (78-100); Mean Corpuscular Hemoglobin 30.2 pg (26-32); Mean Corpuscular Hgb Concent. 33.4 g/dL (32-36); Mean Platelet Volume 10.7 fL (7.5-11.0); Monocyte (Absolute #) 1.19 x10^3/uL (0.0-1.3); Monocytes % 9.5 % (0.0-12.0); Neutrophil % 48.9 % (36.0-66.0); Platelet Count 481 x10^3/uL (150-450); Red Blood Count 5.37 x10^6/uL (4.1-5.4); Red Cell Distribution Width 13.2 % (11.5-14.0); White Blood Count 12.6 x10^3/uL (4.0-10.5)
[2023-08-12 12:52] LABS: ALBUMIN 4.2 g/dL (3.5-5.0); ANION GAP 8.5 MEQ/L (5-15); BILIRUBIN,TOTAL 0.5 mg/dL (0.2-1.3); Calcium 9.9 mg/dL (8.4-10.2); Creatinine 1 0.65 mg/dL (0.52-1.04); EST GLOMERULAR FILTRATION RATE 107.2 ML/MIN; Potassium 4.3 mmol/L (3.5-5.1); Total Protein 7.4 g/dL (6.3-8.2)
[2023-08-12 13:04] LABS: NT PRO BNPII 28.1 pg/mL (<300); TROPONIN < 0.012 ng/mL (0.000-0.034)
[2023-08-12 13:22] LABS: Appearance Clear (Clear); Bacteria None Seen /HPF (None Seen); Bilirubin Negative (Negative); Blood Negative (Negative); Epithelial Cells None Seen /HPF (None Seen); Glucose, Urine Negative (Negative); Hyaline Casts NONE SEEN /LPF (0-2); Ketones Negative (Negative); Leukocyte Esterase Negative (Negative); Nitrite Negative (Negative); Protein,Urine Dip 30 (Negative); RBC 0-2 /HPF (0-5); Specific Gravity <=1.005 (1.005-1.030); Urobilinogen 0.2 mg/dL (0.2); WBC 0-2 /HPF (0-5)
[2023-08-12 13:25] LABS: ADD URINE CULTURE? NO (NO)
[2023-08-12 13:39] VITALS: BP 136/83; PULSE 88; RESP 18; O2SAT 97
== END 2023-08-12 13:47 | disposition home or self-care (01) ==
LOC: ED 11:55
DX: I47.10 Supraventricular tachycardia, unspecified (principal); R06.02 Shortness of breath; R42 Dizziness and giddiness; E78.5 Hyperlipidemia, unspecified; I10 Essential (primary) hypertension; E11.9 Type 2 diabetes mellitus without complications; Z79.85 Long-term (current) use of injectable non-insulin antidiabetic drugs; Z79.899 Other long term (current) drug therapy; Z72.0 Tobacco use
CPT/HCPCS: 36000; 36415; 80053; 81001; 83735; 83880; 84484; 85025; 85379; 93005; 93225; 94760; 94799; 96374; 99284; 99291; J0153

== ENCOUNTER 2023-10-31 22:44 | Observation (INO) | payer OTHER ==
--- NOTE | 2023-11-01 00:38 | ERPHSYRPT ---
- History of Present Illness Time Seen by Provider: 10/31/23 23:20 Historian: patient Exam Limitations: no limitations Patient Subjective Stated Complaint: ate All's at 4:30pm and at 7pm started having stomach pain, N/V/D Triage Nursing Assessment: Pt ambulated from stretcher to bathroom and bed without difficulty. Pt A&O X 3. Skin color WNL for race. Pt had been incontinent of stool in ambulanace. Abdomen soft and not distended. Denies tenderness with gentle palpation. Physician History: 48yo f presents via EMS for NBNB emesis and NB diarrhea x 3h. Pt reports up to 10 episodes of emesis and several episodes of diarrhea in this time frame. Pt states she at [facility] at 1630 and began have these GI sx at 1930. Pt reports associated LLQ abdominal pain and chills. Pt currently denies cp, soa, ZULETA. Activities at Onset: none Quality: cramping Abdominal Pain Onset Location: LLQ Pain Radiation: no radiation Severity of Pain-Max: moderate Severity of Pain-Current: moderate Previous symptoms: no prior history, different symptoms (hx of IBS) Allergies/Adverse Reactions: grapefruit Allergy (Verified 10/31/23 22:46) Hives latex Allergy (Verified 10/31/23 22:46) Hives hives on hands Latex, Natural Rubber Allergy (Verified 10/31/23 22:46) morphine Allergy (Verified 10/31/23 22:46) codeine Adverse Reaction (Severe, Verified 10/31/23 22:46) doxycycline Adverse Reaction (Mild, Verified 10/31/23 22:48) Home Medications: Famotidine [Pepcid] 40 mg PO DAILY 08/12/23 [History] Losartan Potassium 25 mg PO DAILY 08/12/23 [History] Vilazodone HCl 40 mg PO DAILY 08/12/23 [History] Ascorbic Acid [C-1000] 1,000 mg PO DAILY 10/31/23 [History] Dulaglutide [Trulicity] 0.5 ml SQ WEEKLY 10/31/23 [History] Estradiol/Norethindrone Acet [Estradiol-Noreth 0.5-0.1 mg Tb] 1 tab PO DAILY 10/31/23 [History] Metoprolol Succinate 25 mg PO DAILY 10/31/23 [History] Omeprazole 40 mg PO DAILY 10/31/23 [History] Polyethylene Glycol [Polyox Wsr-301] 17 g PO DAILY PRN PRN 10/31/23 [History] Pravastatin Sodium 20 mg PO DAILY 10/31/23 [History] Hx Tetanus, Diphtheria Vaccination/Date Given: Yes (UP TO DATE) Hx Influenza Vaccination/Date Given: No Hx Pneumococcal Vaccination/Date Given: No Immunizations Up to Date: Yes Travel Risk - International Travel Have you traveled outside of the country in past 3 weeks: No - Emerging Infectious Disease Are you exhibiting symptoms associated with any current EIDs: Yes Symptoms: Diarrhea, Vomitting - Review of Systems Constitutional: Chills, Malaise Respiratory: No Symptoms Cardiac: No Symptoms Abdominal/Gastrointestinal: Abdominal Pain, Nausea, Vomiting, Diarrhea, No Hematemesis, No Hematochezia, No Melena Genitourinary Symptoms: No Symptoms - Past Medical History Pertinent Past Medical History: Yes Neurological History: No Pertinent History ENT History: No Pertinent History Cardiac History: High Cholesterol, Hypertension Respiratory History: No Pertinent History Endocrine Medical History: Diabetes Type II Musculoskeletal History: No Pertinent History GI Medical History: No Pertinent History, GERD History: No Pertinent History Psycho-Social History: No Pertinent History Female Reproductive Disorders: Abnormal Uterine Bleeding, Other Other Medical History: 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 - Past Surgical History Past Surgical History: Yes Neuro Surgical History: No Pertinent History Cardiac: No Pertinent History Respiratory: No Pertinent History Gastrointestinal: No Pertinent History, Other Genitourinary: No Pertinent History Musculoskeletal: No Pertinent History Female Surgical History: Hysterectomy, Section, Tubal Ligation, Other Other Surgical History: 2 , MASS ON OVARY REMOVED - Female History Hx Now: No - Social History Smoking Status: Current every day smoker How long have you smoked: 20 Exposure to second hand smoke: No Alcohol Use: None Drug Use: none Patient Lives Alone: Yes - Nursing Vital Signs Nursing Vital Signs: Initial Vital Signs Pulse Rate 81 10/31/23 22:45 Blood Pressure 135/62 10/31/23 22:45 Pain Scale Pain Intensity 0 - Physical Exam General Appearance: no apparent distress, alert Respiratory Exam: normal breath sounds, lungs clear, airway intact, No chest tenderness, No respiratory distress Cardiovascular Exam: regular rate/rhythm, normal heart sounds, normal peripheral pulses Gastrointestinal/Abdomen Exam: soft, normal bowel sounds, No tenderness, No distention Neurologic Exam: alert, oriented x 3, cooperative SpO2 Interpretation: normal SpO2: 98 O2 Delivery: Room Air Ordered Tests: Active Orders 24 hr Category Date Time Status Observation [Place in Observation] ROUTINE Care 11/01/23 05:42 Ordered ABDOMEN AND PELVIS W CONTRAST [CT] Stat Exams 11/01/23 02:23 Completed CBC W DIFF Stat Lab 11/01/23 00:00 Completed CMP Stat Lab 11/01/23 00:00 Completed CULTURE,URINE Stat Lab 11/01/23 00:37 Received LIPASE Stat Lab 11/01/23 00:00 Completed Lactic Acid Stat Lab 11/01/23 04:30 Completed Manual Differential NC Stat Lab 11/01/23 00:00 Completed UA W/RFX UR CULTURE Stat Lab 11/01/23 00:37 Completed Transfer Order Routine Transfer 11/01/23 Ordered Medication Summary Discontinued Medications Generic Name Dose Route Start Last Admin Trade Name Freq PRN Reason Stop Dose Admin Sodium Chloride 1,000 mls @ 999 mls/hr 11/01/23 00:37 11/01/23 02:55 Sodium Chloride 0.9% 1000 Ml IV 11/01/23 01:37 Infused .Q1H1M STA Infusion Sodium Chloride Confirm 11/01/23 00:49 Sodium Chloride 0.9% 1000 Ml Administered 11/01/23 00:50 Dose 1,000 mls @ ud .ROUTE .STK-MED ONE Sodium Chloride 1,000 mls @ 999 mls/hr 11/01/23 02:24 11/01/23 03:32 Sodium Chloride 0.9% 1000 Ml IV 11/01/23 03:24 Infused .Q1H1M STA Infusion Sodium Chloride Confirm 11/01/23 02:30 Sodium Chloride 0.9% 1000 Ml Administered 11/01/23 02:31 Dose 1,000 mls @ ud .ROUTE .STK-MED ONE Lab/Rad Data: Laboratory Result Diagrams 11/01/23 00:00 11/01/23 00:00 Laboratory Results 11/01/23 11/01/23 11/01/23 Range/Units 04:30 00:37 00:00 WBC (4.0-10.5) x10^3/uL RBC (4.1-5.4) x10^6/uL Hgb (12.0-16.0) g/dL Hct (35-47) % MCV (78-100) fL MCH (26-32) pg MCHC (32-36) g/dL RDW (11.5-14.0) % Plt Count (150-450) x10^3/uL MPV (7.5-11.0) fL Segmented Neutrophils (36.0-66.0) % Lymphocytes (Manual) (24-44) % Monocytes (Manual) (0.0-12.0) % Atypical Lymphocytes % Platelet Estimate (NORMAL) RBC Morphology Sodium 137 (135-145) mmol/L Potassium 4.1 (3.5-5.1) mmol/L Chloride 106 (98-107) mmol/L Carbon Dioxide 18 L (22-30) mmol/L Anion Gap 17.4 H (5-15) MEQ/L BUN 21 H (7-17) mg/dL Creatinine 0.87 (0.52-1.04) mg/dL Estimated GFR 81.1 ML/MIN Glucose 187 H (74-106) mg/dL Lactic Acid 1.8 (0.4-2.0) Calcium 10.3 H (8.4-10.2) mg/dL Total Bilirubin 0.40 (0.2-1.3) mg/dL AST 22 (14-36) U/L ALT 17 (0-35) U/L Alkaline Phosphatase 52 (38-126) U/L Serum Total Protein 7.8 (6.3-8.2) g/dL Albumin 4.3 (3.5-5.0) g/dL Lipase 106 (23-300) U/L Urine Color Dark Yellow A (Yellow) Urine Appearance Cloudy A (Clear) Urine pH 5.5 (4.6-8.0) Ur Specific [place] 1.020 (1.005-1.030) Urine Protein 300 A (Negative) Urine Glucose (UA) Negative (Negative) mg/dL Urine Ketones Trace A (Negative) Urine Blood Negative (Negative) Urine Nitrite Negative (Negative) Urine Bilirubin Negative (Negative) Urine Urobilinogen 0.2 (0.2) mg/dL Ur Leukocyte Esterase Trace A (Negative) U Hyaline Cast (Auto) 20-50 (0-2) /LPF Urine Microscopic RBC 6-10 A (0-5) /HPF Urine Microscopic WBC 3-5 (0-5) /HPF Ur Epithelial Cells Few (None Seen) /HPF Urine Bacteria None Seen (None Seen) /HPF Urine Culture Reflexed YES (NO) 11/01/23 Range/Units 00:00 WBC 19.7 H (4.0-10.5) x10^3/uL RBC 5.54 H (4.1-5.4) x10^6/uL Hgb 16.5 H (12.0-16.0) g/dL Hct 47.7 H (35-47) % MCV 86.1 (78-100) fL MCH 29.8 (26-32) pg MCHC 34.6 (32-36) g/dL RDW 12.7 (11.5-14.0) % Plt Count 498 H (150-450) x10^3/uL MPV 10.9 (7.5-11.0) fL Segmented Neutrophils 54 (36.0-66.0) % Lymphocytes (Manual) 32 (24-44) % Monocytes (Manual) 6 (0.0-12.0) % Atypical Lymphocytes 8 % Platelet Estimate INCREASED (NORMAL) RBC Morphology NORMAL Sodium (135-145) mmol/L Potassium (3.5-5.1) mmol/L Chloride (98-107) mmol/L Carbon Dioxide (22-30) mmol/L Anion Gap (5-15) MEQ/L BUN (7-17) mg/dL Creatinine (0.52-1.04) mg/dL Estimated GFR ML/MIN Glucose (74-106) mg/dL Lactic Acid (0.4-2.0) Calcium (8.4-10.2) mg/dL Total Bilirubin (0.2-1.3) mg/dL AST (14-36) U/L ALT (0-35) U/L Alkaline Phosphatase (38-126) U/L Serum Total Protein (6.3-8.2) g/dL Albumin (3.5-5.0) g/dL Lipase (23-300) U/L Urine Color (Yellow) Urine Appearance (Clear) Urine pH (4.6-8.0) Ur Specific [place] (1.005-1.030) Urine Protein (Negative) Urine Glucose (UA) (Negative) mg/dL Urine Ketones (Negative) Urine Blood (Negative) Urine Nitrite (Negative) Urine Bilirubin (Negative) Urine Urobilinogen (0.2) mg/dL Ur Leukocyte Esterase (Negative) U Hyaline Cast (Auto) (0-2) /LPF Urine Microscopic RBC (0-5) /HPF Urine Microscopic WBC (0-5) /HPF Ur Epithelial Cells (None Seen) /HPF Urine Bacteria (None Seen) /HPF Urine Culture Reflexed (NO) - Progress Progress: pain not gone completely Progress Note: 11/01/23 05:48 Discussed admission to obs for continued fluids and nausea management - Dr Ramirez accepts likely viral gastroenteritis Medical Desision Making - Discussion of managment Care discussed with:: hospitalist (sarmad) Reviewed:: Test results Agreed on:: place in obs Will see patient: in hospital - Diagnostic Testing Diagnostic test were ordered, analyzed, and reviewed by me: Yes Radiological Interpretation: Reviewed by me, Teleradiologist Report - Risk of complications The pt has a high risk of morbidity or mortality based on: Decision regarding hospitilization or escalation of hosp level of care - Departure Departure Disposition: Observation Clinical Impression: Gastroenteritis, Dehydration Nausea & vomiting Qualifiers: Vomiting type: unspecified Qualified Code(s): R11.2 - Nausea with vomiting, unspecified Leukocytosis Qualifiers: Leukocytosis type: unspecified Qualified Code(s): D72.829 - Elevated white blood cell count, unspecified Condition: Stable Critical Care Time: No Referrals: CHRISTIANA HEATH [Primary Care Provider] - Follow up/PCP as directed
[2023-11-01 00:43] LABS: Hematocrit 47.7 % (35-47); Hemoglobin 16.5 g/dL (12.0-16.0); Mean Cell Volume 86.1 fL (78-100); Mean Corpuscular Hemoglobin 29.8 pg (26-32); Mean Corpuscular Hgb Concent. 34.6 g/dL (32-36); Mean Platelet Volume 10.9 fL (7.5-11.0); Platelet Count 498 x10^3/uL (150-450); Red Blood Count 5.54 x10^6/uL (4.1-5.4); Red Cell Distribution Width 12.7 % (11.5-14.0); White Blood Count 19.7 x10^3/uL (4.0-10.5)
[2023-11-01] MEDS ORDERED: Sodium Chloride 0.9% 1000 ML 1,000 ML ONE ×2 (00:49→02:30)
[2023-11-01 00:50] LABS: ALBUMIN 4.3 g/dL (3.5-5.0); ANION GAP 17.4 MEQ/L (5-15); BILIRUBIN,TOTAL 0.4 mg/dL (0.2-1.3); Calcium 10.3 mg/dL (8.4-10.2); Creatinine 1 0.87 mg/dL (0.52-1.04); EST GLOMERULAR FILTRATION RATE 81.1 ML/MIN; Potassium 4.1 mmol/L (3.5-5.1); Total Protein 7.8 g/dL (6.3-8.2)
[2023-11-01] MEDS: Sodium Chloride 0.9% 1000 ML 1,000 ML IV STA ×2 (00:51→02:30)
[2023-11-01 01:23] LABS: ATYPICAL LYMPHS 8 %; Lymphocytes 32 % (24-44); Monocyte 6 % (0.0-12.0); Neutrophils 54 % (36.0-66.0); Total Cells Counted 100
[2023-11-01 01:24] LABS: Platelet Estimate INCREASED (NORMAL)
[2023-11-01 02:08] LABS: Appearance Cloudy (Clear); Bacteria None Seen /HPF (None Seen); Bilirubin Negative (Negative); Blood Negative (Negative); Epithelial Cells Few /HPF (None Seen); Glucose, Urine Negative (Negative); Ketones Trace (Negative); Leukocyte Esterase Trace (Negative); Nitrite Negative (Negative); Ph 5.5 (4.6-8.0); Protein,Urine Dip 300 (Negative); Urobilinogen 0.2 mg/dL (0.2)
[2023-11-01 02:09] LABS: ADD URINE CULTURE? YES (NO); Hyaline Casts 20-50 /LPF (0-2)
--- NOTE | 2023-11-01 04:57 | XRAY ---
CLINICAL HISTORY: abdominal pain LLQ COMPARISON: 07/09/2019 TECHNIQUE: CT scan of the abdomen and pelvis was performed with IV contrast. 100 ml of Inj. Omnipaque (350 mg/ 100ml) was administered as an intravenous contrast agent. Bowel loops are opacified by prior administration of oral contrast. Coronal and sagittal reconstructive images were also obtained. One of the following dose reduction techniques were utilized for this exam: Automated exposure control, adjustment of the mA and/or kV according to patient size, and use of iterative reconstruction. FINDINGS: Abdomen: The liver is normal in size and measures 15 cm. No focal or diffuse parenchymal abnormality. The portal vein, intrahepatic biliary radicals and the bile ducts are normal. The spleen, pancreas, and adrenal glands are unremarkable. The kidneys are unremarkable. They are normal in size and shape. No calculi or hydronephrosis. The cortical cyst at the lower interpolar region measures 1.4x1.4cm. The gallbladder is normal. No pericholecystic collection or radio-dense calculi in the gall bladder. The ascending colon, the transverse colon, the descending colon, visualized small bowel loops are unremarkable. The large blessing and the appendix are unremarkable. There is no evidence of significant enlargement of the mesenteric or retroperitoneal lymph nodes. Atherosclerotic intimal calcification was noted in the abdominal aorta. Pelvis: The urinary bladder is unremarkable. The rectosigmoid colon is unremarkable. The uterus and ovaries are not visualized. The pelvic vasculature is unremarkable. No evidence of pelvic lymphadenopathy. The osseous structures in the pelvis, lower rib cage, and lumbar spine show no abnormality. No lytic or sclerotic bone lesions. IMPRESSION: Left renal cortical cyst. (Bosniak I) No significant interval changes. Electronically Signed by: Sherwin Chung MD. (11/01/2023 04:53:02 EDT)
[2023-11-01] MEDS ORDERED: Zofran 4 MG/2 ML VIAL IV PRN (06:26)
[2023-11-01] MEDS: Sodium Chloride 0.9% 1000 ML 1,000 ML IV SCH (06:31)
[2023-11-01] MEDS ORDERED: POLYETHYLENE GLYCOL 1 GM PO PRN (07:36)
[2023-11-01] MEDS ORDERED: HUMALOG SQ PRN (07:37)
[2023-11-01] MEDS ORDERED: Miralax Powder 17GM PACKET PO PRN (07:41)
[2023-11-01] MEDS ORDERED: MEDICATION INTERVENTION MC SCH ×2 (07:45→08:00)
--- NOTE | 2023-11-01 08:24 | PCM.SSS ---
History of Present Illness - Chief Complaint Chief Complaint: GASTROENTERITIS, DEHYDRATION Date: 11/01/23 History of Present Illness: is a 48 year old female with PMHX of hyperlipidemia, HTN, type II DM, GERD, ovairan tumor, and daily smoker for over 20 years. She states she ate a [employer] big mac at [place] at 4:30pm yesterday and at 7pm started having LLQ stomach pain and N/V/D. Since admission and receiving IVF she is feeling much better. She has not had any further sxs. Will start pt on a clear liquid diet this morning. If tolerated can transition to regular diet. If she does well she can go home. She denies CP, SOB, abd. pain, N/V/D. - Review of Systems Constitutional: No Fever, No Chills Eyes: No Symptoms Ears, Nose, & Throat: No Symptoms Respiratory: No Cough, No Short Of Breath Cardiac: No Chest Pain, No Edema, No Syncope Abdominal/Gastrointestinal: No Abdominal Pain, No Nausea, No Vomiting, No Diarrhea Genitourinary Symptoms: No Dysuria Musculoskeletal: No Back Pain, No Neck Pain Skin: No Rash Neurological: No Dizziness, No Focal Weakness, No Sensory Changes Psychological: No Symptoms Endocrine: No Symptoms Hematologic/Lymphatic: No Symptoms Immunological/Allergic: No Symptoms Medications & Allergies Home Medications: Home Medication List Famotidine [Pepcid] 40 mg PO HS 08/12/23 [History Confirmed 11/01/23] Losartan Potassium 25 mg PO HS 08/12/23 [History Confirmed 11/01/23] Vilazodone HCl 40 mg PO HS 08/12/23 [History Confirmed 11/01/23] Ascorbic Acid [C-1000] 1,000 mg PO HS 10/31/23 [History Confirmed 11/01/23] Dulaglutide [Trulicity] 0.5 ml SQ WEEKLY 10/31/23 [History Confirmed 10/31/23] Estradiol/Norethindrone Acet [Estradiol-Noreth 0.5-0.1 mg Tb] 1 tab PO HS 10/31/23 [History Confirmed 11/01/23] Metoprolol Succinate 25 mg PO HS 10/31/23 [History Confirmed 11/01/23] Omeprazole 40 mg PO HS 10/31/23 [History Confirmed 11/01/23] Polyethylene Glycol [Polyox Wsr-301] 17 g PO DAILY PRN PRN 10/31/23 [History Confirmed 10/31/23] Pravastatin Sodium 20 mg PO HS 10/31/23 [History Confirmed 11/01/23] Ondansetron ODT 4 MG [Zofran Odt 4 mg] 4 mg PO Q6H PRN PRN #10 tablet 11/01/23 [Rx] Allergies/Adverse Reactions: Allergies Allergy/AdvReac Type Severity Reaction Status Date / Time grapefruit Allergy Hives Verified 11/01/23 06:04 latex Allergy Hives Verified 11/01/23 06:04 Latex, Natural Rubber Allergy Verified 11/01/23 06:04 morphine Allergy Verified 11/01/23 06:04 codeine AdvReac Severe Verified 11/01/23 06:04 doxycycline AdvReac Mild Verified 11/01/23 06:04 - Past Medical History Past Medical History: Yes Neurological History: No Pertinent History ENT History: No Pertinent History Cardiac History: High Cholesterol, Hypertension Respiratory History: No Pertinent History Endocrine Medical History: Diabetes Type II Musculoskelatal History: No Pertinent History GI Medical History: No Pertinent History, GERD History: No Pertinent History Pyscho-Social History: No Pertinent History Reproductive Disorders: Abnormal Uterine Bleeding, Other Comment: 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 - Female History Are you now?: No - Past Surgical History Past Surgical History: Yes Neuro Surgical History: No Pertinent History Cardiac History: No Pertinent History Respiratory Surgery: No Pertinent History GI Surgical History: No Pertinent History, Other Genitourinary Surgical Hx: No Pertinent History Musculskeletal Surgical Hx: No Pertinent History Female Surgical History: Hysterectomy, Section, Tubal Ligation, Other Other Surgical History: 2 , MASS ON OVARY REMOVED - Social History Smoking Status: Current every day smoker How long have you smoked: 20 Exposure to second hand smoke: No Alcohol: None Drug Use: none - Social Determinants of Health Will the patient participate in the screening: Yes Do you worry about a steady place to live?: No Do you have any problems with any of the following?: No known problems In the past 12 months,have you had to go without utilities?: No Have you or anyone in your house had to go without enough: No Transportation Issues: No Has anyone in your support network made you feel unsafe?: No Does the patient want assistance with any of the above?: No - Physical Exam Vital Signs: Vital Signs - 24 hr Temp Pulse Resp BP BP Pulse Ox 11/01/23 06:05 97.3 F 77 19 121/56 95 11/01/23 05:51 98 11/01/23 05:50 97.3 F 77 16 121/56 95 11/01/23 05:00 82 17 109/57 93 L 11/01/23 04:30 100/61 94 L 11/01/23 04:24 103/55 96 11/01/23 04:22 86 16 103/55 96 11/01/23 03:30 98/61 11/01/23 03:00 89 20 94/54 96 11/01/23 02:30 85 18 103/57 94 L 11/01/23 02:00 82 17 103/57 95 11/01/23 01:30 82 130/53 96 11/01/23 01:00 120/71 10/31/23 23:30 95 H 107/62 97 10/31/23 23:00 84 118/75 92 L 10/31/23 22:49 97.3 F 85 16 135/62 98 10/31/23 22:45 81 135/62 General Appearance: no apparent distress, alert Neurologic Exam: alert, oriented x 3, cooperative, normal mood/affect, nml cerebellar function, nml station & gait, sensation nml, No motor deficits Eye Exam: PERRL/EOMI, eyes nml inspection Ears, Nose, Throat Exam: normal ENT inspection, TMs normal, pharynx normal, moist mucous membranes Neck Exam: normal inspection, non-tender, supple, full range of motion Respiratory Exam: normal breath sounds, lungs clear, No respiratory distress Cardiovascular Exam: regular rate/rhythm, normal heart sounds, normal peripheral pulses Gastrointestinal/Abdomen Exam: soft, normal bowel sounds, No tenderness, No mass Back Exam: normal inspection, normal range of motion, No CVA tenderness, No vertebral tenderness Extremity Exam: normal inspection, normal range of motion, pelvis stable Skin Exam: normal color, warm, dry, No rash Lymphatic Exam: No adenopathy Results - Labs Lab/Micro Results: Lab Results-Last 24 Hours 11/01/23 11/01/23 11/01/23 Range/Units 00:00 00:00 00:37 WBC 19.7 H (4.0-10.5) x10^3/uL RBC 5.54 H (4.1-5.4) x10^6/uL Hgb 16.5 H (12.0-16.0) g/dL Hct 47.7 H (35-47) % MCV 86.1 (78-100) fL MCH 29.8 (26-32) pg MCHC 34.6 (32-36) g/dL RDW 12.7 (11.5-14.0) % Plt Count 498 H (150-450) x10^3/uL MPV 10.9 (7.5-11.0) fL Segmented Neutrophils 54 (36.0-66.0) % Lymphocytes (Manual) 32 (24-44) % Monocytes (Manual) 6 (0.0-12.0) % Atypical Lymphocytes 8 % Platelet Estimate INCREASED (NORMAL) RBC Morphology NORMAL Sodium 137 (135-145) mmol/L Potassium 4.1 (3.5-5.1) mmol/L Chloride 106 (98-107) mmol/L Carbon Dioxide 18 L (22-30) mmol/L Anion Gap 17.4 H (5-15) MEQ/L BUN 21 H (7-17) mg/dL Creatinine 0.87 (0.52-1.04) mg/dL Estimated GFR 81.1 ML/MIN Glucose 187 H (74-106) mg/dL Lactic Acid (0.4-2.0) Calcium 10.3 H (8.4-10.2) mg/dL Total Bilirubin 0.40 (0.2-1.3) mg/dL AST 22 (14-36) U/L ALT 17 (0-35) U/L Alkaline Phosphatase 52 (38-126) U/L Serum Total Protein 7.8 (6.3-8.2) g/dL Albumin 4.3 (3.5-5.0) g/dL Lipase 106 (23-300) U/L Urine Color Dark Yellow A (Yellow) Urine Appearance Cloudy A (Clear) Urine pH 5.5 (4.6-8.0) Ur Specific Usk 1.020 (1.005-1.030) Urine Protein 300 A (Negative) Urine Glucose (UA) Negative (Negative) mg/dL Urine Ketones Trace A (Negative) Urine Blood Negative (Negative) Urine Nitrite Negative (Negative) Urine Bilirubin Negative (Negative) Urine Urobilinogen 0.2 (0.2) mg/dL Ur Leukocyte Esterase Trace A (Negative) U Hyaline Cast (Auto) 20-50 (0-2) /LPF Urine Microscopic RBC 6-10 A (0-5) /HPF Urine Microscopic WBC 3-5 (0-5) /HPF Ur Epithelial Cells Few (None Seen) /HPF Urine Bacteria None Seen (None Seen) /HPF Urine Culture Reflexed YES (NO) 11/01/23 Range/Units 04:30 WBC (4.0-10.5) x10^3/uL RBC (4.1-5.4) x10^6/uL Hgb (12.0-16.0) g/dL Hct (35-47) % MCV (78-100) fL MCH (26-32) pg MCHC (32-36) g/dL RDW (11.5-14.0) % Plt Count (150-450) x10^3/uL MPV (7.5-11.0) fL Segmented Neutrophils (36.0-66.0) % Lymphocytes (Manual) (24-44) % Monocytes (Manual) (0.0-12.0) % Atypical Lymphocytes % Platelet Estimate (NORMAL) RBC Morphology Sodium (135-145) mmol/L Potassium (3.5-5.1) mmol/L Chloride (98-107) mmol/L Carbon Dioxide (22-30) mmol/L Anion Gap (5-15) MEQ/L BUN (7-17) mg/dL Creatinine (0.52-1.04) mg/dL Estimated GFR ML/MIN Glucose (74-106) mg/dL Lactic Acid 1.8 (0.4-2.0) Calcium (8.4-10.2) mg/dL Total Bilirubin (0.2-1.3) mg/dL AST (14-36) U/L ALT (0-35) U/L Alkaline Phosphatase (38-126) U/L Serum Total Protein (6.3-8.2) g/dL Albumin (3.5-5.0) g/dL Lipase (23-300) U/L Urine Color (Yellow) Urine Appearance (Clear) Urine pH (4.6-8.0) Ur Specific Usk (1.005-1.030) Urine Protein (Negative) Urine Glucose (UA) (Negative) mg/dL Urine Ketones (Negative) Urine Blood (Negative) Urine Nitrite (Negative) Urine Bilirubin (Negative) Urine Urobilinogen (0.2) mg/dL Ur Leukocyte Esterase (Negative) U Hyaline Cast (Auto) (0-2) /LPF Urine Microscopic RBC (0-5) /HPF Urine Microscopic WBC (0-5) /HPF Ur Epithelial Cells (None Seen) /HPF Urine Bacteria (None Seen) /HPF Urine Culture Reflexed (NO) Microbiology 11/01/23 00:37 Urine Culture - Preliminary Clean Catch Midstream NO GROWTH TO DATE - Radiology Impressions Radiology Exams & Impressions: Radiology Procedures Category Date Time Status ABDOMEN AND PELVIS W CONTRAST [CT] Stat Exams 11/01/23 02:23 Completed - Other Procedures and Tests Respiratory Therapy 11/01/23 06:18 Smoking Cessation Education ONCE Assessment/Plan (1) Gastroenteritis Current Visit: Yes Status: Acute Assessment & Plan: - sxs resolved - clear liquid diet this AM and then transition if tolerated. - cont PPI Code(s): K52.9 - NONINFECTIVE GASTROENTERITIS AND COLITIS, UNSPECIFIED (2) Dehydration Current Visit: Yes Status: Acute Assessment & Plan: - 1L NS fluid bolus x2 gave in ER last night - NS at 150ml/hr - Anion gap 17.4 on admission - labs pending today - dark urine on admission - 10/31- anion gap 7.1 Code(s): E86.0 - DEHYDRATION (3) Type II diabetes mellitus Current Visit: Yes Status: Chronic Qualifiers: Diabetes mellitus lobsterman insulin use: with lobsterman use Diabetes mellitus complication status: without complication Qualified Code(s): E11.9 - Type 2 diabetes mellitus without complications; Z79.4 - shelter (current) use of insulin Assessment & Plan: - A1C on 09/10/22 5.64- controlled - New A1C 6.06 controlled - accuchecks ac/hs - Humalog s/s (4) Hyperlipidemia Current Visit: Yes Status: Chronic Assessment & Plan: - continue statin Code(s): E78.5 - HYPERLIPIDEMIA, UNSPECIFIED (5) Chronic GERD Current Visit: Yes Status: Chronic Assessment & Plan: - Continue pepcid Code(s): K21.9 - GASTRO-ESOPHAGEAL REFLUX DISEASE WITHOUT ESOPHAGITIS (6) Smoker Current Visit: Yes Status: Chronic Assessment & Plan: - advised cessation - 1800quitnow information provided for cessation - nicotine patch Code(s): F17.200 - NICOTINE DEPENDENCE, UNSPECIFIED, UNCOMPLICATED (7) Leukocytosis Current Visit: Yes Status: Acute Qualifiers: Leukocytosis type: unspecified Qualified Code(s): D72.829 - Elevated white blood cell count, unspecified Assessment & Plan: - 2:2 N/V/D - WBC 12.1 today- improved Code(s): D72.829 - ELEVATED WHITE BLOOD CELL COUNT, UNSPECIFIED (8) Hypertension Current Visit: No Status: Acute Qualifiers: Hypertension type: essential hypertension Assessment & Plan: - stable, continue home meds Code(s): I10 - ESSENTIAL (PRIMARY) HYPERTENSION Hospital Summary - Hospital Course Hospital Course: is a 48 year old female with PMHX of hyperlipidemia, HTN, type II DM, GERD, ovairan tumor, and daily smoker for over 20 years. She states she ate a [employer] big mac at [place] at 4:30pm yesterday and at 7pm started having LLQ stomach pain and N/V/D. Since admission and receiving IVF she is feeling much better. She has not had any further sxs. Will start pt on a clear liquid diet this morning tolerated well. At lunch she can transition to regular diet. If she does well she can go home. She denies CP, SOB, abd. pain, N/V/D. - Vitals & Intake/Output Vital Signs: Vital Signs Temperature 97.3 F 11/01/23 06:05 Pulse Rate 77 11/01/23 06:05 Respiratory Rate 19 11/01/23 06:05 Blood Pressure 121/56 11/01/23 06:05 O2 Sat by Pulse Oximetry 95 11/01/23 06:05 Intake & Output: Intake & Output 10/29/23 10/30/23 10/31/23 11/01/23 11:59 11:59 11:59 11:59 Weight 80.3 kg - Lab Result Diagrams: 11/01/23 08:40 11/01/23 08:40 Lab Results-Last 24 Hrs: Lab Results-Last 24 Hours 11/01/23 11/01/23 11/01/23 Range/Units 00:00 00:00 00:37 WBC 19.7 H (4.0-10.5) x10^3/uL RBC 5.54 H (4.1-5.4) x10^6/uL Hgb 16.5 H (12.0-16.0) g/dL Hct 47.7 H (35-47) % MCV 86.1 (78-100) fL MCH 29.8 (26-32) pg MCHC 34.6 (32-36) g/dL RDW 12.7 (11.5-14.0) % Plt Count 498 H (150-450) x10^3/uL MPV 10.9 (7.5-11.0) fL Segmented Neutrophils 54 (36.0-66.0) % Lymphocytes (Manual) 32 (24-44) % Monocytes (Manual) 6 (0.0-12.0) % Atypical Lymphocytes 8 % Platelet Estimate INCREASED (NORMAL) RBC Morphology NORMAL Sodium 137 (135-145) mmol/L Potassium 4.1 (3.5-5.1) mmol/L Chloride 106 (98-107) mmol/L Carbon Dioxide 18 L (22-30) mmol/L Anion Gap 17.4 H (5-15) MEQ/L BUN 21 H (7-17) mg/dL Creatinine 0.87 (0.52-1.04) mg/dL Estimated GFR 81.1 ML/MIN Glucose 187 H (74-106) mg/dL Lactic Acid (0.4-2.0) Calcium 10.3 H (8.4-10.2) mg/dL Total Bilirubin 0.40 (0.2-1.3) mg/dL AST 22 (14-36) U/L ALT 17 (0-35) U/L Alkaline Phosphatase 52 (38-126) U/L Serum Total Protein 7.8 (6.3-8.2) g/dL Albumin 4.3 (3.5-5.0) g/dL Lipase 106 (23-300) U/L Urine Color Dark Yellow A (Yellow) Urine Appearance Cloudy A (Clear) Urine pH 5.5 (4.6-8.0) Ur Specific Usk 1.020 (1.005-1.030) Urine Protein 300 A (Negative) Urine Glucose (UA) Negative (Negative) mg/dL Urine Ketones Trace A (Negative) Urine Blood Negative (Negative) Urine Nitrite Negative (Negative) Urine Bilirubin Negative (Negative) Urine Urobilinogen 0.2 (0.2) mg/dL Ur Leukocyte Esterase Trace A (Negative) U Hyaline Cast (Auto) 20-50 (0-2) /LPF Urine Microscopic RBC 6-10 A (0-5) /HPF Urine Microscopic WBC 3-5 (0-5) /HPF Ur Epithelial Cells Few (None Seen) /HPF Urine Bacteria None Seen (None Seen) /HPF Urine Culture Reflexed YES (NO) 11/01/23 Range/Units 04:30 WBC (4.0-10.5) x10^3/uL RBC (4.1-5.4) x10^6/uL Hgb (12.0-16.0) g/dL Hct (35-47) % MCV (78-100) fL MCH (26-32) pg MCHC (32-36) g/dL RDW (11.5-14.0) % Plt Count (150-450) x10^3/uL MPV (7.5-11.0) fL Segmented Neutrophils (36.0-66.0) % Lymphocytes (Manual) (24-44) % Monocytes (Manual) (0.0-12.0) % Atypical Lymphocytes % Platelet Estimate (NORMAL) RBC Morphology Sodium (135-145) mmol/L Potassium (3.5-5.1) mmol/L Chloride (98-107) mmol/L Carbon Dioxide (22-30) mmol/L Anion Gap (5-15) MEQ/L BUN (7-17) mg/dL Creatinine (0.52-1.04) mg/dL Estimated GFR ML/MIN Glucose (74-106) mg/dL Lactic Acid 1.8 (0.4-2.0) Calcium (8.4-10.2) mg/dL Total Bilirubin (0.2-1.3) mg/dL AST (14-36) U/L ALT (0-35) U/L Alkaline Phosphatase (38-126) U/L Serum Total Protein (6.3-8.2) g/dL Albumin (3.5-5.0) g/dL Lipase (23-300) U/L Urine Color (Yellow) Urine Appearance (Clear) Urine pH (4.6-8.0) Ur Specific Usk (1.005-1.030) Urine Protein (Negative) Urine Glucose (UA) (Negative) mg/dL Urine Ketones (Negative) Urine Blood (Negative) Urine Nitrite (Negative) Urine Bilirubin (Negative) Urine Urobilinogen (0.2) mg/dL Ur Leukocyte Esterase (Negative) U Hyaline Cast (Auto) (0-2) /LPF Urine Microscopic RBC (0-5) /HPF Urine Microscopic WBC (0-5) /HPF Ur Epithelial Cells (None Seen) /HPF Urine Bacteria (None Seen) /HPF Urine Culture Reflexed (NO) Micro Results-Entire Visit: Microbiology 11/01/23 00:37 Urine Culture - Preliminary Clean Catch Midstream NO GROWTH TO DATE - Radiology Exams Ordered Rad Exams-Entire Visit: Radiology Procedures Category Date Time Status ABDOMEN AND PELVIS W CONTRAST [CT] Stat Exams 11/01/23 02:23 Completed - Procedures and Test Procedures and Tests throughout Hospitalization: Therapy Orders & Screens 11/01/23 06:18 Smoking Cessation Education ONCE Comment: Diagnosis: GASTROENTERITIS, DEHYDRATION Smoking Status: Current every day smoker How long have you smoked: 20 Have you smoked in the past 12 months: Yes Approximately how many cigarettes per day: 7 Do you dip or chew tobacco: No If,Former Smoker,when did you quit: 02/2014 - Discharge Discharge Date: 11/01/23 Disposition: Home, Self-Care Condition: Stable Prescriptions: Continue Famotidine [Pepcid] 40 mg PO HS Vilazodone HCl 40 mg PO HS Losartan Potassium 25 mg PO HS Estradiol/Norethindrone Acet [Estradiol-Noreth 0.5-0.1 mg Tb] 1 tab PO HS Polyethylene Glycol [Polyox Wsr-301] 17 g PO DAILY PRN PRN PRN Reason: Constipation Metoprolol Succinate 25 mg PO HS Pravastatin Sodium 20 mg PO HS Ascorbic Acid [C-1000] 1,000 mg PO HS Omeprazole 40 mg PO HS Dulaglutide [Trulicity] 0.5 ml SQ WEEKLY Follow up with: CHRISTIANA HEATH [Primary Care Provider] -
[2023-11-01 08:46] LABS: Hematocrit 42.2 % (35-47); Hemoglobin 13.9 g/dL (12.0-16.0); Mean Cell Volume 91.3 fL (78-100); Mean Corpuscular Hemoglobin 30.1 pg (26-32); Mean Corpuscular Hgb Concent. 32.9 g/dL (32-36); Mean Platelet Volume 9.9 fL (7.5-11.0); Platelet Count 325 x10^3/uL (150-450); Red Blood Count 4.62 x10^6/uL (4.1-5.4); Red Cell Distribution Width 12.8 % (11.5-14.0); White Blood Count 12.1 x10^3/uL (4.0-10.5)
[2023-11-01 08:59] LABS: ALBUMIN 3.2 g/dL (3.5-5.0); ANION GAP 7.1 MEQ/L (5-15); BILIRUBIN,TOTAL 0.5 mg/dL (0.2-1.3); Calcium 7.9 mg/dL (8.4-10.2); Creatinine 1 0.72 mg/dL (0.52-1.04); EST GLOMERULAR FILTRATION RATE 101.8 ML/MIN; Total Protein 5.9 g/dL (6.3-8.2)
[2023-11-01] MEDS: Nicoderm CQ 21 MG TOP SCH (10:25)
[2023-11-01 11:18] VITALS: BP 121/63; PULSE 85; RESP 18; TEMP 97.5; O2SAT 85
[2023-11-01] MEDS ORDERED: NON-FORMULARY ITEM (Famotidine [Pepcid] 40 MG Tablet) PO SCH (22:00)
[2023-11-01] MEDS ORDERED: NON-FORMULARY ITEM (Metoprolol Succinate 25 MG Tab.Er.24h) PO SCH (22:00)
[2023-11-01] MEDS ORDERED: [UNRECOGNIZED DRUG - OTHER] PO SCH (22:00)
[2023-11-01] MEDS ORDERED: NON-FORMULARY ITEM (Omeprazole [Omeprazole] 40 MG Capsule.Dr) PO SCH (22:00)
[2023-11-01] MEDS ORDERED: ZOCOR 20MG PO SCH (22:00)
[2023-11-01] MEDS ORDERED: Pepcid 20 MG PO SCH (22:00)
[2023-11-01] MEDS ORDERED: NON-FORMULARY ITEM (Pravastatin Sodium [Pravastatin Sodium] 20 MG Tablet) PO SCH (22:00)
[2023-11-01] MEDS ORDERED: NON-FORMULARY ITEM (Losartan Potassium [Losartan Potassium] 25 MG Tablet) PO SCH (22:00)
[2023-11-01] MEDS ORDERED: Toprol-Xl 25MG Tablets PO SCH (22:00)
[2023-11-01] MEDS ORDERED: ESTRADIOL PO SCH (22:00)
[2023-11-01] MEDS ORDERED: Protonix 40MG Tablet PO SCH (22:00)
[2023-11-01] MEDS ORDERED: Vitamin C 500 MG PO SCH (22:00)
[2023-11-01] MEDS ORDERED: NORETHINDRONE ACETATE PO SCH (22:00)
[2023-11-01] MEDS ORDERED: Cozaar 50 MG PO SCH (22:00)
[2023-11-01] MEDS ORDERED: NON-FORMULARY ITEM (Ascorbic Acid [C-1000] 1,000 MG Tablet) PO SCH (22:00)
[2023-11-01] MEDS ORDERED: VILAZODONE HCL 40 MG PO SCH (22:00)
== END 2023-11-01 14:19 | disposition home or self-care (01) ==
LOC: ED 22:44 → MED SURG 11-01 05:46
PROVIDERS: ADMIT Internal Medicine; ATTEND Internal Medicine
DX: K52.9 Noninfective gastroenteritis and colitis, unspecified (principal); E86.0 Dehydration; E11.9 Type 2 diabetes mellitus without complications; E78.5 Hyperlipidemia, unspecified; K21.9 Gastro-esophageal reflux disease without esophagitis; F17.200 Nicotine dependence, unspecified, uncomplicated; D72.829 Elevated white blood cell count, unspecified; I10 Essential (primary) hypertension; Z79.4 Long term (current) use of insulin; Z79.899 Other long term (current) drug therapy; Z20.828 Contact with and (suspected) exposure to other viral communicable diseases
CPT/HCPCS: 36415; 74177; 80053; 81001; 83036; 83605; 83690; 85025; 85027; 87086; 96360; 96361; 99285; G0378; Q3014

== ENCOUNTER 2024-10-13 11:12 | Observation (INO) | payer OTHER ==
--- NOTE | 2024-10-13 11:26 | ERPHSYRPT ---
- History of Present Illness Time Seen by Provider: 10/13/24 11:20 Source: patient Exam Limitations: no limitations Physician History: Pt presents with palpitations that started suddenly while brushing their teeth. Pt states "I can feel that heart going crazy on me." They deny chest pain, but report feeling tired. 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 Pt reports a similar episode approximately one year ago. They are followed by a dental assistant medical assistant, Dr. Ashton. Pt states they take metoprolol, dose unknown, and a medication starting with "L" for a kidney issue. Pt denies new medications. Pt reports no longer having menses. Timing/Duration: today Activities at Onset: other (brushing teeth) Quality: pressure Location: substernal Chest Pain Radiation: no radiation Severity of Pain-Max: moderate Severity of Pain-Current: moderate Modifying Factors: Improves With: nothing Nitro Today/Relief: no nitro taken today Aspirin Treatment Today: no aspirin today Associated Symptoms: shortness of breath, chest pain, No nausea, No vomiting, No abdominal pain Prior Chest Pain/Cardiac Workup: no prior chest pain Allergies/Adverse Reactions: grapefruit Allergy (Verified 10/13/24 11:18) Hives latex Allergy (Verified 10/13/24 11:18) Hives hives on hands Latex, Natural Rubber Allergy (Verified 10/13/24 11:18) morphine Allergy (Verified 10/13/24 11:18) codeine Adverse Reaction (Severe, Verified 10/13/24 11:18) doxycycline Adverse Reaction (Mild, Verified 10/13/24 11:18) Home Medications: Famotidine [Pepcid] 40 mg PO HS 08/12/23 [History] Losartan Potassium 25 mg PO HS 08/12/23 [History] Vilazodone HCl 40 mg PO HS 08/12/23 [History] Ascorbic Acid [C-1000] 1,000 mg PO HS 10/31/23 [History] Estradiol/Norethindrone Acet [Estradiol-Noreth 0.5-0.1 mg Tb] 1 tab PO HS 10/30 [History] Metoprolol Succinate 25 mg PO HS 10/31/23 [History] Omeprazole 40 mg PO HS PRN PRN 10/31/23 [History] Pravastatin Sodium 20 mg PO HS 10/31/23 [History] Tirzepatide [Mounjaro] 7.5 mg SQ WEEKLY 10/13/24 [History] Hx Tetanus, Diphtheria Vaccination/Date Given: Yes (UP TO DATE) Hx Influenza Vaccination/Date Given: No Hx Pneumococcal Vaccination/Date Given: No Travel Risk - Emerging Infectious Disease Are you exhibiting symptoms associated with any current EIDs: Yes Symptoms: Diarrhea, Vomitting - Review of Systems All Other Systems: Reviewed and Negative - Past Medical History Neurological History: No Pertinent History Cardiac History: Arrhythmia, High Cholesterol, Hypertension Respiratory History: Asthma, Sleep Apnea Endocrine Medical History: Diabetes Type II Musculoskeletal History: Osteoarthritis Other Medical History: ALLERGIES: LATEX. PMH: DM II. PSH: 2 C SECTIONS, CYST REMOVED, BILATERAL OVARY REMOVAL AND 2 ABLATIONS - Past Surgical History Past Surgical History: Yes Neuro Surgical History: No Pertinent History Cardiac: No Pertinent History Respiratory: No Pertinent History Gastrointestinal: No Pertinent History, Other Genitourinary: No Pertinent History Musculoskeletal: No Pertinent History Female Surgical History: Hysterectomy, Section, Tubal Ligation, Other Other Surgical History: 2 , MASS ON OVARY REMOVED - Female History Hx Last Menstrual Period: HYST - Social History Smoking Status: Current every day smoker How long have you smoked: 20 Exposure to second hand smoke: No Drug Use: none - Social Determinants of Health Will the patient participate in the screening: Yes Do you worry about a steady place to live?: No In the past 12 months,have you had to go without utilities?: No Transportation Issues: No Has anyone in your support network made you feel unsafe?: No Have you or anyone in your house had to go w/o enough food: No - Nursing Vital Signs Nursing Vital Signs: Initial Vital Signs Temperature 97.1 F 10/13/24 11:19 Pulse Rate 165 H 10/13/24 11:19 Respiratory Rate 20 10/13/24 11:19 Blood Pressure 172/105 10/13/24 11:19 O2 Sat by Pulse Oximetry 97 10/13/24 11:19 Pain Scale Pain Intensity 0 - Physical Exam General Appearance: moderate distress Eye Exam: PERRL/EOMI Ears, Nose, Throat Exam: normal ENT inspection Neck Exam: normal inspection, non-tender, supple, full range of motion Respiratory Exam: normal breath sounds, lungs clear, airway intact, No chest tenderness, No respiratory distress Cardiovascular Exam: tachycardia, capillary refill <2 sec Gastrointestinal/Abdomen Exam: soft, No tenderness, No distention, No mass, No guarding, No rebound Extremity Exam: normal inspection, normal range of motion Neurologic Exam: alert, oriented x 3, cooperative Skin Exam: diaphoresis SpO2 Interpretation: normal O2 Delivery: Room Air - Course Nursing assessment & vital signs reviewed: Yes EKG Interpreted by Me: RATE (162), Sinus Rhythm, NORMAL AXIS, NORMAL INTERVALS, NORMAL QRS, NORMAL ST-T - Radiology Exams Chest X-ray Interpretation: Interpreted by me, Negative - CT Exams Head CT Interpretation: Negative, Tele-radiologist Report Ordered Tests: Active Orders 24 hr Category Date Time Status Call Admit Doctor for Orders ON ADMISSION Care 10/13/24 14:16 Active Geothermal Technician ROUTINE Care 10/13/24 14:16 Completed Geothermal Technician STAT Care 10/13/24 11:27 Completed Code Status Order ROUTINE Care 10/13/24 14:16 Active EKG-ER Only STAT Care 10/13/24 11:26 Completed IV Insertion STAT Care 10/13/24 11:[address] in Observation ROUTINE Care 10/13/24 14:16 Active Telemetry q6h Care 10/13/24 14:16 Active Tele-Health Consult ROUTINE Cons 10/13/24 13:41 Completed CHEST 1 VIEW (PORTABLE) Stat Exams 10/13/24 11:26 Taken HEAD WITHOUT CONTRAST [CT] Stat Exams 10/13/24 12:04 Completed CBC W DIFF Stat Lab 10/13/24 11:35 Completed CMP Stat Lab 10/13/24 11:37 Completed D-DIMER QUANTITATIVE Stat Lab 10/13/24 11:37 Completed Lactic Acid Stat Lab 10/13/24 11:26 Completed MAGNESIUM Stat Lab 10/13/24 11:37 Completed NT PRO BNPII Stat Lab 10/13/24 11:37 Completed POCT GLUCOSE Stat Lab 10/13/24 11:18 Completed TROPONIN Q4H Lab 10/13/24 11:37 Completed TROPONIN Q4H Lab 10/13/24 15:44 Completed TROPONIN Q4H Lab 10/13/24 19:30 Ordered TSH, 3RD Generation Stat Lab 10/13/24 11:37 Completed UA W/RFX UR CULTURE Stat Lab 10/13/24 11:39 Completed Urine Triage Profile Stat Lab 10/13/24 11:39 Completed Transfer Order Routine Transfer 10/13/24 Completed Medication Summary Generic Name Dose Route Start Last Admin Trade Name Eduardo PRN Reason Stop Dose Admin Acetaminophen 650 mg 10/13/24 15:10 Acetaminophen 325 Mg Tablet PO 11/12/24 15:09 Q4H PRN PRN PAIN, FEVER, HEADACHE Insulin Human Lispro 0 unit 10/13/24 15:10 Insulin Lispro 1 Unit SQ 11/12/24 15:09 UD PRN HYPERGLYCEMIA Nicotine 21 mg 10/13/24 15:15 10/13/24 16:19 Nicotine 21 Mg/Patch Patch TOP 11/12/24 15:14 Not Given Q24H DEUCE Non-Formulary Medication 1,000 mg 10/13/24 22:00 Ascorbic Acid [C-1000] PO 11/12/24 21:59 HS DEUCE Non-Formulary Medication 25 mg 10/13/24 22:00 Losartan Potassium [Losartan Potassium] PO 11/12/24 21:59 HS DEUCE Non-Formulary Medication 25 mg 10/13/24 22:00 Metoprolol Succinate PO 11/12/24 21:59 HS DEUCE Non-Formulary Medication 40 mg 10/13/24 22:00 Famotidine [Pepcid] PO 11/12/24 21:59 HS DEUCE Non-Formulary Medication 20 mg 10/13/24 22:00 Pravastatin Sodium [Pravastatin Sodium] PO 11/12/24 21:59 HS DEUCE Non-Formulary Medication 40 mg 10/13/24 22:00 Vilazodone Hcl [Vilazodone Hcl] PO 11/12/24 21:59 HS DEUCE Ondansetron HCl 4 mg 10/13/24 15:10 Ondansetron Hcl 4 Mg/2 Ml Vial IV 11/12/24 15:09 Q6H PRN PRN NAUSEA/VOMITING Pantoprazole Sodium 40 mg 10/14/24 10:00 Protonix (Pantoprazole) 40 Mg Tablet PO 11/13/24 09:59 DAILY DEUCE Discontinued Medications Generic Name Dose Route Start Last Admin Trade Name Eduardo PRN Reason Stop Dose Admin Aspirin 324 mg 10/13/24 12:19 10/13/24 12:26 Aspirin 81 Mg Tab.Chew PO 10/13/24 12:20 324 mg STAT ONE Administration Aspirin Confirm 10/13/24 12:24 Aspirin 81 Mg Tab.Chew Administered 10/13/24 12:25 Dose 324 mg .ROUTE .STK-MED ONE Calcium Gluconate 1,000 mg 10/13/24 11:26 10/13/24 11:40 Calcium Gluconate 1000 Mg/10 Ml Vial IV 10/13/24 11:27 1,000 mg STAT ONE Administration Calcium Gluconate Confirm 10/13/24 11:33 Calcium Gluconate 1000 Mg/10 Ml Vial Administered 10/13/24 11:34 Dose 1,000 mg IV .STK-MED ONE Sodium Chloride 1,000 mls @ 999 mls/hr 10/13/24 11:26 10/13/24 13:28 Sodium Chloride 0.9% 1000 Ml IV 10/13/24 12:26 Infused .Q1H1M STA Infusion Sodium Chloride Confirm 10/13/24 11:34 Sodium Chloride 0.9% 1000 Ml Administered 10/13/24 11:35 Dose 1,000 mls @ ud .ROUTE .STK-MED ONE Sodium Chloride Confirm 10/13/24 12:55 Sodium Chloride 0.9% 1000 Ml Administered 10/13/24 12:56 Dose 1,000 mls @ ud .ROUTE .STK-MED ONE Sodium Chloride 1,000 mls @ 999 mls/hr 10/13/24 13:04 10/13/24 13:05 Sodium Chloride 0.9% 1000 Ml IV 10/13/24 14:04 999 mls/hr .Q1H1M STA Administration Labetalol HCl 20 mg 10/13/24 11:26 10/13/24 11:41 Labetalol Hcl 20 Mg/4 Ml Disp.Syringe IV 10/13/24 11:27 20 mg STAT ONE Administration Labetalol HCl Confirm 10/13/24 11:34 Labetalol Hcl 20 Mg/4 Ml Disp.Syringe Administered 10/13/24 11:35 Dose 20 mg IV .STK-MED ONE Metoprolol Tartrate 5 mg 10/13/24 12:52 10/13/24 13:22 Metoprolol Tartrate 5 Mg/5 Ml Vial IV 10/13/24 12:53 Not Given STAT ONE Metoprolol Tartrate Confirm 10/13/24 12:55 Metoprolol Tartrate 5 Mg/5 Ml Vial Administered 10/13/24 12:56 Dose 5 mg IV .STK-MED ONE Lab/Rad Data: Laboratory Result Diagrams 10/13/24 11:35 10/13/24 11:37 Laboratory Results 10/13/24 10/13/24 10/13/24 Range/Units 11:39 11:39 11:37 WBC (3.98-10.04) x10^3/uL RBC (3.93-5.22) x10^6/uL Hgb (11.2-15.7) g/dL Hct (34.1-44.9) % MCV (79.4-94.8) fL MCH (25.6-32.2) pg MCHC (32.2-35.5) g/dL RDW (11.7-14.4) % Plt Count (182-369) x10^3/uL MPV (9.4-12.3) fL Gran % (34.0-71.1) % Immature Gran % (Auto) (0.001-0.429) % Nucleat RBC Rel Count (0.00-0.2) % Eos # (Auto) (0.04-0.36) x10^3/uL Immature Gran # (Auto) (0.001-0.031) x10^3u/L Absolute Lymphs (auto) (1.18-3.74) x10^3/uL Absolute Monos (auto) (0.24-0.86) x10^3/uL Absolute Nucleated RBC (0.00-0.012) x10^3u/L Lymphocytes % (19.3-51.7) % Monocytes % (4.7-12.5) % Eosinophils % (0.7-5.8) % Basophils % (0.1-1.2) % Absolute Granulocytes (1.56-6.13) x10^3/uL Basophils # (0.01-0.08) x10^3/uL D-Dimer (0.0-0.50) mg/L Sodium (135-145) mmol/L Potassium (3.5-5.1) mmol/L Chloride (98-107) mmol/L Carbon Dioxide (22-30) mmol/L Anion Gap (5-15) MEQ/L BUN (7-17) mg/dL Creatinine (0.52-1.04) mg/dL Estimated GFR ML/MIN Glucose (74-106) mg/dL POC Glucometer (74 to 106) mg/dL Lactic Acid (0.4-2.0) Calcium (8.4-10.2) mg/dL Magnesium (1.6-2.3) mg/dL Total Bilirubin (0.2-1.3) mg/dL AST (14-36) U/L ALT (0-35) U/L Alkaline Phosphatase (38-126) U/L Troponin I (0.000-0.033) ng/mL NT-Pro-B Natriuret Pep (<300) pg/mL Serum Total Protein (6.3-8.2) g/dL Albumin (3.5-5.0) g/dL Free T4 1.22 (0.78-2.19) ng/dL TSH 3rd Generation (0.470-4.680) mIU/L Urine Color Yellow (Yellow) Urine Appearance Clear (Clear) Urine pH 7.0 (4.6-8.0) Ur Specific [place] <=1.005 (1.005-1.030) Urine Protein 100 A (Negative) Urine Glucose (UA) Negative (Negative) mg/dL Urine Ketones Negative (Negative) Urine Blood Negative (Negative) Urine Nitrite Negative (Negative) Urine Bilirubin Negative (Negative) Urine Urobilinogen 0.2 (0.2) mg/dL Ur Leukocyte Esterase Negative (Negative) U Hyaline Cast (Auto) NONE SEEN (0-2) /LPF Urine Microscopic RBC 0-2 (0-5) /HPF Urine Microscopic WBC 0-2 (0-5) /HPF Ur Epithelial Cells None Seen (None Seen) /HPF Urine Bacteria None Seen (None Seen) /HPF Urine Culture Reflexed NO (NO) Urine Opiates Level NEGATIVE (NEGATIVE) Ur Methadone NEGATIVE (NEGATIVE) Urine Barbiturates NEGATIVE (NEGATIVE) Ur Phencyclidine (PCP) NEGATIVE (NEGATIVE) Urine Amphetamine NEGATIVE (NEGATIVE) U Benzodiazepine Level NEGATIVE (NEGATIVE) Urine Cocaine NEGATIVE (NEGATIVE) Urine Marijuana (THC) NEGATIVE (NEGATIVE) 10/13/24 10/13/24 10/13/24 Range/Units 11:37 11:37 11:37 WBC (3.98-10.04) x10^3/uL RBC (3.93-5.22) x10^6/uL Hgb (11.2-15.7) g/dL Hct (34.1-44.9) % MCV (79.4-94.8) fL MCH (25.6-32.2) pg MCHC (32.2-35.5) g/dL RDW (11.7-14.4) % Plt Count (182-369) x10^3/uL MPV (9.4-12.3) fL Gran % (34.0-71.1) % Immature Gran % (Auto) (0.001-0.429) % Nucleat RBC Rel Count (0.00-0.2) % Eos # (Auto) (0.04-0.36) x10^3/uL Immature Gran # (Auto) (0.001-0.031) x10^3u/L Absolute Lymphs (auto) (1.18-3.74) x10^3/uL Absolute Monos (auto) (0.24-0.86) x10^3/uL Absolute Nucleated RBC (0.00-0.012) x10^3u/L Lymphocytes % (19.3-51.7) % Monocytes % (4.7-12.5) % Eosinophils % (0.7-5.8) % Basophils % (0.1-1.2) % Absolute Granulocytes (1.56-6.13) x10^3/uL Basophils # (0.01-0.08) x10^3/uL D-Dimer 0.39 (0.0-0.50) mg/L Sodium (135-145) mmol/L Potassium (3.5-5.1) mmol/L Chloride (98-107) mmol/L Carbon Dioxide (22-30) mmol/L Anion Gap (5-15) MEQ/L BUN (7-17) mg/dL Creatinine (0.52-1.04) mg/dL Estimated GFR ML/MIN Glucose (74-106) mg/dL POC Glucometer (74 to 106) mg/dL Lactic Acid (0.4-2.0) Calcium (8.4-10.2) mg/dL Magnesium (1.6-2.3) mg/dL Total Bilirubin (0.2-1.3) mg/dL AST (14-36) U/L ALT (0-35) U/L Alkaline Phosphatase (38-126) U/L Troponin I < 0.012 (0.000-0.033) ng/mL NT-Pro-B Natriuret Pep 43.4 (<300) pg/mL Serum Total Protein (6.3-8.2) g/dL Albumin (3.5-5.0) g/dL Free T4 (0.78-2.19) ng/dL TSH 3rd Generation 0.921 (0.470-4.680) mIU/L Urine Color (Yellow) Urine Appearance (Clear) Urine pH (4.6-8.0) Ur Specific [place] (1.005-1.030) Urine Protein (Negative) Urine Glucose (UA) (Negative) mg/dL Urine Ketones (Negative) Urine Blood (Negative) Urine Nitrite (Negative) Urine Bilirubin (Negative) Urine Urobilinogen (0.2) mg/dL Ur Leukocyte Esterase (Negative) U Hyaline Cast (Auto) (0-2) /LPF Urine Microscopic RBC (0-5) /HPF Urine Microscopic WBC (0-5) /HPF Ur Epithelial Cells (None Seen) /HPF Urine Bacteria (None Seen) /HPF Urine Culture Reflexed (NO) Urine Opiates Level (NEGATIVE) Ur Methadone (NEGATIVE) Urine Barbiturates (NEGATIVE) Ur Phencyclidine (PCP) (NEGATIVE) Urine Amphetamine (NEGATIVE) U Benzodiazepine Level (NEGATIVE) Urine Cocaine (NEGATIVE) Urine Marijuana (THC) (NEGATIVE) 10/13/24 10/13/24 10/13/24 Range/Units 11:37 11:35 11:26 WBC 11.6 H (3.98-10.04) x10^3/uL RBC 5.81 H (3.93-5.22) x10^6/uL Hgb 17.3 H (11.2-15.7) g/dL Hct 50.8 H (34.1-44.9) % MCV 87.4 (79.4-94.8) fL MCH 29.8 (25.6-32.2) pg MCHC 34.1 (32.2-35.5) g/dL RDW 13.0 (11.7-14.4) % Plt Count 461 H (182-369) x10^3/uL MPV 10.1 (9.4-12.3) fL Gran % 50.8 (34.0-71.1) % Immature Gran % (Auto) 0.3 (0.001-0.429) % Nucleat RBC Rel Count 0.0 (0.00-0.2) % Eos # (Auto) 0.35 (0.04-0.36) x10^3/uL Immature Gran # (Auto) 0.03 (0.001-0.031) x10^3u/L Absolute Lymphs (auto) 4.26 H (1.18-3.74) x10^3/uL Absolute Monos (auto) 0.94 H (0.24-0.86) x10^3/uL Absolute Nucleated RBC 0.00 (0.00-0.012) x10^3u/L Lymphocytes % 36.9 (19.3-51.7) % Monocytes % 8.1 (4.7-12.5) % Eosinophils % 3.0 (0.7-5.8) % Basophils % 0.9 (0.1-1.2) % Absolute Granulocytes 5.88 (1.56-6.13) x10^3/uL Basophils # 0.10 H (0.01-0.08) x10^3/uL D-Dimer (0.0-0.50) mg/L Sodium 142 (135-145) mmol/L Potassium 4.4 (3.5-5.1) mmol/L Chloride 108 H (98-107) mmol/L Carbon Dioxide 25 (22-30) mmol/L Anion Gap 12.9 (5-15) MEQ/L BUN 13 (7-17) mg/dL Creatinine 0.71 (0.52-1.04) mg/dL Estimated GFR 102.9 ML/MIN Glucose 134 H (74-106) mg/dL POC Glucometer (74 to 106) mg/dL Lactic Acid 1.3 (0.4-2.0) Calcium 9.5 (8.4-10.2) mg/dL Magnesium 2.1 (1.6-2.3) mg/dL Total Bilirubin 0.70 (0.2-1.3) mg/dL AST 30 (14-36) U/L ALT 21 (0-35) U/L Alkaline Phosphatase 49 (38-126) U/L Troponin I (0.000-0.033) ng/mL NT-Pro-B Natriuret Pep (<300) pg/mL Serum Total Protein 7.5 (6.3-8.2) g/dL Albumin 4.5 (3.5-5.0) g/dL Free T4 (0.78-2.19) ng/dL TSH 3rd Generation (0.470-4.680) mIU/L Urine Color (Yellow) Urine Appearance (Clear) Urine pH (4.6-8.0) Ur Specific [place] (1.005-1.030) Urine Protein (Negative) Urine Glucose (UA) (Negative) mg/dL Urine Ketones (Negative) Urine Blood (Negative) Urine Nitrite (Negative) Urine Bilirubin (Negative) Urine Urobilinogen (0.2) mg/dL Ur Leukocyte Esterase (Negative) U Hyaline Cast (Auto) (0-2) /LPF Urine Microscopic RBC (0-5) /HPF Urine Microscopic WBC (0-5) /HPF Ur Epithelial Cells (None Seen) /HPF Urine Bacteria (None Seen) /HPF Urine Culture Reflexed (NO) Urine Opiates Level (NEGATIVE) Ur Methadone (NEGATIVE) Urine Barbiturates (NEGATIVE) Ur Phencyclidine (PCP) (NEGATIVE) Urine Amphetamine (NEGATIVE) U Benzodiazepine Level (NEGATIVE) Urine Cocaine (NEGATIVE) Urine Marijuana (THC) (NEGATIVE) 10/13/24 Range/Units 11:18 WBC (3.98-10.04) x10^3/uL RBC (3.93-5.22) x10^6/uL Hgb (11.2-15.7) g/dL Hct (34.1-44.9) % MCV (79.4-94.8) fL MCH (25.6-32.2) pg MCHC (32.2-35.5) g/dL RDW (11.7-14.4) % Plt Count (182-369) x10^3/uL MPV (9.4-12.3) fL Gran % (34.0-71.1) % Immature Gran % (Auto) (0.001-0.429) % Nucleat RBC Rel Count (0.00-0.2) % Eos # (Auto) (0.04-0.36) x10^3/uL Immature Gran # (Auto) (0.001-0.031) x10^3u/L Absolute Lymphs (auto) (1.18-3.74) x10^3/uL Absolute Monos (auto) (0.24-0.86) x10^3/uL Absolute Nucleated RBC (0.00-0.012) x10^3u/L Lymphocytes % (19.3-51.7) % Monocytes % (4.7-12.5) % Eosinophils % (0.7-5.8) % Basophils % (0.1-1.2) % Absolute Granulocytes (1.56-6.13) x10^3/uL Basophils # (0.01-0.08) x10^3/uL D-Dimer (0.0-0.50) mg/L Sodium (135-145) mmol/L Potassium (3.5-5.1) mmol/L Chloride (98-107) mmol/L Carbon Dioxide (22-30) mmol/L Anion Gap (5-15) MEQ/L BUN (7-17) mg/dL Creatinine (0.52-1.04) mg/dL Estimated GFR ML/MIN Glucose (74-106) mg/dL POC Glucometer 118 H (74 to 106) mg/dL Lactic Acid (0.4-2.0) Calcium (8.4-10.2) mg/dL Magnesium (1.6-2.3) mg/dL Total Bilirubin (0.2-1.3) mg/dL AST (14-36) U/L ALT (0-35) U/L Alkaline Phosphatase (38-126) U/L Troponin I (0.000-0.033) ng/mL NT-Pro-B Natriuret Pep (<300) pg/mL Serum Total Protein (6.3-8.2) g/dL Albumin (3.5-5.0) g/dL Free T4 (0.78-2.19) ng/dL TSH 3rd Generation (0.470-4.680) mIU/L Urine Color (Yellow) Urine Appearance (Clear) Urine pH (4.6-8.0) Ur Specific [place] (1.005-1.030) Urine Protein (Negative) Urine Glucose (UA) (Negative) mg/dL Urine Ketones (Negative) Urine Blood (Negative) Urine Nitrite (Negative) Urine Bilirubin (Negative) Urine Urobilinogen (0.2) mg/dL Ur Leukocyte Esterase (Negative) U Hyaline Cast (Auto) (0-2) /LPF Urine Microscopic RBC (0-5) /HPF Urine Microscopic WBC (0-5) /HPF Ur Epithelial Cells (None Seen) /HPF Urine Bacteria (None Seen) /HPF Urine Culture Reflexed (NO) Urine Opiates Level (NEGATIVE) Ur Methadone (NEGATIVE) Urine Barbiturates (NEGATIVE) Ur Phencyclidine (PCP) (NEGATIVE) Urine Amphetamine (NEGATIVE) U Benzodiazepine Level (NEGATIVE) Urine Cocaine (NEGATIVE) Urine Marijuana (THC) (NEGATIVE) - Progress Progress: improved Air Movement: good Progress Note: Sinus tach, labetolol 20 IV given, BP stable, HR finally broke to 80s and patien'ts sxs improved. Dr. Encinas accepts for admission at 1319. Blood Culture(s) Obtained: No Antibiotics given: No Discussed with DrBere: Other (uHang) Will see patient in: hospital (observation) Counseled pt/family regarding: lab results, diagnosis, need for follow-up, rad results Medical Desision Making - Diagnostic Testing Diagnostic test were ordered, analyzed, and reviewed by me: Yes Radiological Interpretation: Interpreted by me - Risk of complications The pt has a mod risk of morbidity or mortality based on: Need for prescription drug management The pt has a high risk of morbidity or mortality based on: Decision regarding hospitilization or escalation of hosp level of care - Departure Departure Disposition: Observation Clinical Impression: Tachycardia, Elevated hemoglobin, Elevated hematocrit, Elevated platelet count Condition: Fair Critical Care Time: No
[2024-10-13] MEDS ORDERED: Calcium Gluconate 10% 1000 MG IV ONE (11:33)
[2024-10-13] MEDS ORDERED: Sodium Chloride 0.9% 1000 ML 1,000 ML ONE ×2 (11:34→12:55)
[2024-10-13] MEDS ORDERED: TRANDATE 20 MG/4 ML SYRINGE IV ONE (11:34)
[2024-10-13 11:36] LABS: Absolute Neutrophil Ct (ANC) 5.88 x10^3/uL (1.56-6.13); BASOPHIL % 0.9 % (0.1-1.2); Eosinophil (Absolute #) 0.35 x10^3/uL (0.04-0.36); Hematocrit 50.8 % (34.1-44.9); Hemoglobin 17.3 g/dL (11.2-15.7); IMMATURE GRAN # 0.03 x10^3u/L (0.001-0.031); IMMATURE GRAN % 0.3 % (0.001-0.429); Lymphocyte (Absolute #) 4.26 x10^3/uL (1.18-3.74); Lymphocytes % 36.9 % (19.3-51.7); Mean Cell Volume 87.4 fL (79.4-94.8); Mean Corpuscular Hemoglobin 29.8 pg (25.6-32.2); Mean Corpuscular Hgb Concent. 34.1 g/dL (32.2-35.5); Mean Platelet Volume 10.1 fL (9.4-12.3); Monocyte (Absolute #) 0.94 x10^3/uL (0.24-0.86); Monocytes % 8.1 % (4.7-12.5); Neutrophil % 50.8 % (34.0-71.1); Platelet Count 461 x10^3/uL (182-369); Red Blood Count 5.81 x10^6/uL (3.93-5.22); White Blood Count 11.6 x10^3/uL (3.98-10.04)
[2024-10-13] MEDS: Calcium Gluconate 10% 1000 MG IV ONE (11:40)
[2024-10-13] MEDS: TRANDATE 20 MG/4 ML SYRINGE IV ONE (11:41)
[2024-10-13] MEDS: Sodium Chloride 0.9% 1000 ML 1,000 ML IV STA ×2 (11:45→13:05)
[2024-10-13 11:51] LABS: ALBUMIN 4.5 g/dL (3.5-5.0); ANION GAP 12.9 MEQ/L (5-15); BILIRUBIN,TOTAL 0.7 mg/dL (0.2-1.3); Calcium 9.5 mg/dL (8.4-10.2); Creatinine 1 0.71 mg/dL (0.52-1.04); EST GLOMERULAR FILTRATION RATE 102.9 ML/MIN; MAGNESIUM 2.1 mg/dL (1.6-2.3); Potassium 4.4 mmol/L (3.5-5.1); Total Protein 7.5 g/dL (6.3-8.2)
[2024-10-13 11:54] LABS: Appearance Clear (Clear); Bacteria None Seen /HPF (None Seen); Bilirubin Negative (Negative); Blood Negative (Negative); Epithelial Cells None Seen /HPF (None Seen); Glucose, Urine Negative (Negative); Hyaline Casts NONE SEEN /LPF (0-2); Ketones Negative (Negative); Leukocyte Esterase Negative (Negative); Nitrite Negative (Negative); Protein,Urine Dip 100 (Negative); RBC 0-2 /HPF (0-5); Specific Gravity <=1.005 (1.005-1.030); Urobilinogen 0.2 mg/dL (0.2); WBC 0-2 /HPF (0-5)
[2024-10-13 12:02] LABS: NT PRO BNPII 43.4 pg/mL (<300); TROPONIN < 0.012 ng/mL (0.000-0.033)
[2024-10-13 12:05] LABS: Amphetamine,Urine NEGATIVE (NEGATIVE); Barbiturate,Urine NEGATIVE (NEGATIVE); Benzodiazepine,Urine NEGATIVE (NEGATIVE); Cocaine,Urine NEGATIVE (NEGATIVE); Methadone,Urine NEGATIVE (NEGATIVE); Opiate,Urine NEGATIVE (NEGATIVE); PCP,Urine NEGATIVE (NEGATIVE); THC,Urine NEGATIVE (NEGATIVE)
[2024-10-13] MEDS ORDERED: BABY ASPIRIN 81 MG CHEW ONE (12:24)
[2024-10-13] MEDS: BABY ASPIRIN 81 MG CHEW PO ONE (12:26)
--- NOTE | 2024-10-13 12:40 | XRAY ---
CLINICAL HISTORY: left sided weakness COMPARISON: None. TECHNIQUE: Axial non-contrast CT scan of the brain was performed from the skull base to the high parietal region with coronal and sagittal reformats. One of the following dose reduction techniques were utilized for this exam: Automated exposure control, adjustment of the mA and/or kV according to patient size, use of iterative reconstruction. FINDINGS: Brain Parenchyma: Small left basal ganglia hypodense focus noted likely related to old lacunar infarction. Othewise, normal attenuation of the cerebral hemispheres, cerebellum, and brainstem. No evidence of acute infarct, hemorrhage, or mass effect. No abnormal areas of hypo- or hyperattenuation. Ventricular System: Ventricles are normal in size and configuration. No evidence of hydrocephalus or ventricular enlargement. Subarachnoid Spaces: Normal sulci and cisterns. No evidence of subarachnoid hemorrhage or extra-axial fluid collections. Cerebellum and Brainstem: Normal size and signal. No masses, lesions, or areas of abnormal signal. Orbits: Normal appearance of the globes, optic nerves, and extraocular muscles. No evidence of orbital masses or abnormal signal. Sinuses: Mild to moderate right maxillary sinus mucosal thickening. Mastoid Air Cells: Clear mastoid air cells. No evidence of mastoiditis. Skull: Normal skull morphology. IMPRESSION: Small left basal ganglia hypodense focus noted likely related to old lacunar infarction. MRI head with DWI advised to rule out acute ischemic changes. The report was ready at 11:29 AM [facility], 10/13/2024, and the call was completed at 11:31 AM [facility], 10/13/2024, at , and Dr Roxy RN was informed regarding the Negative stroke results. Electronically Signed by: Sherwin Chung MD. (10/13/2024 12:35:21 EDT)
[2024-10-13] MEDS ORDERED: LOPRESSOR INJECTION IV ONE (12:55)
[2024-10-13] MEDS: LOPRESSOR INJECTION IV ONE (13:22)
--- NOTE | 2024-10-13 14:47 | PCM.HP ---
History of Present Illness - Chief Complaint Chief Complaint: sinus tachycardia Date: 10/13/24 History of Present Illness: Ms. Mario is a 49 year old female with a PMHX of SVT, DMII, HILDA, HLD, HTN, and asthma who presented 10/13/24 with sudden-onset palpitations that began while brushing their teeth in the shower. She describe a sensation of rapid, uncontrolled heartbeats and report associated fatigue, though she denies chest pain, syncope, or dyspnea. She also reports an elevated BP at home systolically in the 180's and left-sided weakness in her upper extremity. A migratory farm hand notes altered behavior compared to her baseline in the sense that the patient was acti ng very lethargic and having difficulty finding her words. The patient reports a similar episode of rapid heart rate one year ago and is currently under the care of a batch unit treater, Dr. Ashton. At that time she was placed on two week holter monitor which came back with no events. She is prescribed metoprolol with no recent changes in her dosing. Patient On arrival,patient was hypertensive at 172/105 and tachycardic at 165 bpm. EKG showed sinus tachycardia at 162 bpm with no signs of ischemia. Labs revealed mild leukocytosis (WBC 11.6), elevated hemoglobin (17.3), and a high platelet count (461). A CT scan of the head showed a small left basal ganglia hypodensity, likely from an old stroke. The patient was treated with IV metoprolol, calcium gluconate, aspirin, and IV fluids, which brought her heart rate down to 84 bpm. Symptoms suggest an episode of uncontrolled tachycardia, possibly due to inadequate rate control or another trigger. Admit for SVT with continuous heart monitoring, repeat ECG, and a cardiology consult for further evaluation. Neurology was consulted in ED recommended MRI brain w/o contrast which is unavailable on the weekend. - Review of Systems Constitutional: Lethargy Eyes: No Symptoms Ears, Nose, & Throat: No Symptoms Respiratory: No Symptoms Cardiac: No Symptoms Abdominal/Gastrointestinal: No Symptoms Genitourinary Symptoms: No Symptoms Musculoskeletal: No Symptoms Skin: No Symptoms Neurological: No Symptoms Psychological: No Symptoms Endocrine: No Symptoms Hematologic/Lymphatic: No Symptoms Immunological/Allergic: No Symptoms Medications & Allergies Home Medications: Home Medication List Famotidine [Pepcid] 40 mg PO HS 08/12/23 [History Confirmed 10/13/24] Losartan Potassium 25 mg PO HS 08/12/23 [History Confirmed 10/13/24] Vilazodone HCl 40 mg PO HS 08/12/23 [History Confirmed 10/13/24] Ascorbic Acid [C-1000] 1,000 mg PO HS 10/31/23 [History Confirmed 10/13/24] Dulaglutide [Trulicity] 0.5 ml SQ WEEKLY 10/31/23 [History Confirmed 10/13/24] Estradiol/Norethindrone Acet [Estradiol-Noreth 0.5-0.1 mg Tb] 1 tab PO HS 10/31/23 [History Confirmed 10/13/24] Metoprolol Succinate 25 mg PO HS 10/31/23 [History Confirmed 10/13/24] Omeprazole 40 mg PO HS 10/31/23 [History Confirmed 10/13/24] Pravastatin Sodium 20 mg PO HS 10/31/23 [History Confirmed 10/13/24] Allergies/Adverse Reactions: Allergies Allergy/AdvReac Type Severity Reaction Status Date / Time grapefruit Allergy Hives Verified 10/13/24 11:18 latex Allergy Hives Verified 10/13/24 11:18 Latex, Natural Rubber Allergy Verified 10/13/24 11:18 morphine Allergy Verified 10/13/24 11:18 codeine AdvReac Severe Verified 10/13/24 11:18 doxycycline AdvReac Mild Verified 10/13/24 11:18 - Past Medical History Past Medical History: Yes Neurological History: No Pertinent History ENT History: No Pertinent History Cardiac History: Arrhythmia, High Cholesterol, Hypertension Respiratory History: Asthma, Sleep Apnea Endocrine Medical History: Diabetes Type II Musculoskelatal History: Osteoarthritis GI Medical History: No Pertinent History, GERD History: No Pertinent History Pyscho-Social History: No Pertinent History Reproductive Disorders: Abnormal Uterine Bleeding, Other Comment: ALLERGIES: LATEX. PMH: DM II. PSH: 2 C SECTIONS, CYST REMOVED, BILATERAL OVARY REMOVAL AND 2 ABLATIONS - Female History Hx Last Menstrual Period: HYST - Past Surgical History Past Surgical History: Yes Neuro Surgical History: No Pertinent History Cardiac History: No Pertinent History Respiratory Surgery: No Pertinent History GI Surgical History: No Pertinent History, Other Genitourinary Surgical Hx: No Pertinent History Musculskeletal Surgical Hx: No Pertinent History Female Surgical History: Hysterectomy, Section, Tubal Ligation, Other Other Surgical History: 2 , MASS ON OVARY REMOVED Significant Family History: heart disease, diabetes, hypertension, stroke - Social History Smoking Status: Current every day smoker How long have you smoked: 20 Exposure to second hand smoke: No Alcohol: None Drug Use: none - Social Determinants of Health Will the patient participate in the screening: Yes Do you worry about a steady place to live?: No Do you have any problems with any of the following?: No known problems In the past 12 months,have you had to go without utilities?: No Have you or anyone in your house had to go without enough: No Transportation Issues: No Has anyone in your support network made you feel unsafe?: No Does the patient want assistance with any of the above?: No - Physical Exam Vital Signs: Vital Signs - 24 hr Temp Pulse Resp BP BP Pulse Ox 10/13/24 13:40 73 14 151/95 99 10/13/24 13:30 82 24 140/93 99 10/13/24 13:20 75 13 170/104 99 10/13/24 13:13 77 24 141/119 99 10/13/24 13:00 84 14 131/106 98 10/13/24 12:56 86 20 139/100 97 10/13/24 12:45 85 20 148/123 98 10/13/24 12:30 155 H 18 137/117 98 10/13/24 12:20 149 H 16 123/102 97 10/13/24 12:14 151 H 28 H 135/100 97 10/13/24 12:06 125/98 10/13/24 11:59 149 H 12 105/91 98 10/13/24 11:50 150 H 14 118/95 96 10/13/24 11:47 149 H 12 127/78 95 10/13/24 11:40 152 H 25 H 153/126 97 10/13/24 11:39 160 H 25 H 164/138 97 10/13/24 11:30 153/110 10/13/24 11:20 166 H 24 161/123 97 10/13/24 11:19 97.1 F 165 H 20 172/105 172/105 97 General Appearance: no apparent distress Neurologic Exam: alert, oriented x 3, cooperative Eye Exam: PERRL/EOMI Ears, Nose, Throat Exam: normal ENT inspection Neck Exam: normal inspection Respiratory Exam: normal breath sounds, lungs clear Cardiovascular Exam: regular rate/rhythm, normal heart sounds Pelvic Exam: not done Rectal Exam: deferred Back Exam: normal inspection Extremity Exam: normal inspection Skin Exam: normal color Results - Labs Lab/Micro Results: Lab Results-Last 24 Hours 10/13/24 10/13/24 10/13/24 Range/Units 11:18 11:26 11:35 WBC 11.6 H (3.98-10.04) x10^3/uL RBC 5.81 H (3.93-5.22) x10^6/uL Hgb 17.3 H (11.2-15.7) g/dL Hct 50.8 H (34.1-44.9) % MCV 87.4 (79.4-94.8) fL MCH 29.8 (25.6-32.2) pg MCHC 34.1 (32.2-35.5) g/dL RDW 13.0 (11.7-14.4) % Plt Count 461 H (182-369) x10^3/uL MPV 10.1 (9.4-12.3) fL Gran % 50.8 (34.0-71.1) % Immature Gran % (Auto) 0.3 (0.001-0.429) % Nucleat RBC Rel Count 0.0 (0.00-0.2) % Eos # (Auto) 0.35 (0.04-0.36) x10^3/uL Immature Gran # (Auto) 0.03 (0.001-0.031) x10^3u/L Absolute Lymphs (auto) 4.26 H (1.18-3.74) x10^3/uL Absolute Monos (auto) 0.94 H (0.24-0.86) x10^3/uL Absolute Nucleated RBC 0.00 (0.00-0.012) x10^3u/L Lymphocytes % 36.9 (19.3-51.7) % Monocytes % 8.1 (4.7-12.5) % Eosinophils % 3.0 (0.7-5.8) % Basophils % 0.9 (0.1-1.2) % Absolute Granulocytes 5.88 (1.56-6.13) x10^3/uL Basophils # 0.10 H (0.01-0.08) x10^3/uL D-Dimer (0.0-0.50) mg/L Sodium (135-145) mmol/L Potassium (3.5-5.1) mmol/L Chloride (98-107) mmol/L Carbon Dioxide (22-30) mmol/L Anion Gap (5-15) MEQ/L BUN (7-17) mg/dL Creatinine (0.52-1.04) mg/dL Estimated GFR ML/MIN Glucose (74-106) mg/dL POC Glucometer 118 H (74 to 106) mg/dL Lactic Acid 1.3 (0.4-2.0) Calcium (8.4-10.2) mg/dL Magnesium (1.6-2.3) mg/dL Total Bilirubin (0.2-1.3) mg/dL AST (14-36) U/L ALT (0-35) U/L Alkaline Phosphatase (38-126) U/L Troponin I (0.000-0.033) ng/mL NT-Pro-B Natriuret Pep (<300) pg/mL Serum Total Protein (6.3-8.2) g/dL Albumin (3.5-5.0) g/dL Free T4 (0.78-2.19) ng/dL TSH 3rd Generation (0.470-4.680) mIU/L Urine Color (Yellow) Urine Appearance (Clear) Urine pH (4.6-8.0) Ur Specific [place] (1.005-1.030) Urine Protein (Negative) Urine Glucose (UA) (Negative) mg/dL Urine Ketones (Negative) Urine Blood (Negative) Urine Nitrite (Negative) Urine Bilirubin (Negative) Urine Urobilinogen (0.2) mg/dL Ur Leukocyte Esterase (Negative) U Hyaline Cast (Auto) (0-2) /LPF Urine Microscopic RBC (0-5) /HPF Urine Microscopic WBC (0-5) /HPF Ur Epithelial Cells (None Seen) /HPF Urine Bacteria (None Seen) /HPF Urine Culture Reflexed (NO) Urine Opiates Level (NEGATIVE) Ur Methadone (NEGATIVE) Urine Barbiturates (NEGATIVE) Ur Phencyclidine (PCP) (NEGATIVE) Urine Amphetamine (NEGATIVE) U Benzodiazepine Level (NEGATIVE) Urine Cocaine (NEGATIVE) Urine Marijuana (THC) (NEGATIVE) 10/13/24 10/13/24 10/13/24 Range/Units 11:37 11:37 11:37 WBC (3.98-10.04) x10^3/uL RBC (3.93-5.22) x10^6/uL Hgb (11.2-15.7) g/dL Hct (34.1-44.9) % MCV (79.4-94.8) fL MCH (25.6-32.2) pg MCHC (32.2-35.5) g/dL RDW (11.7-14.4) % Plt Count (182-369) x10^3/uL MPV (9.4-12.3) fL Gran % (34.0-71.1) % Immature Gran % (Auto) (0.001-0.429) % Nucleat RBC Rel Count (0.00-0.2) % Eos # (Auto) (0.04-0.36) x10^3/uL Immature Gran # (Auto) (0.001-0.031) x10^3u/L Absolute Lymphs (auto) (1.18-3.74) x10^3/uL Absolute Monos (auto) (0.24-0.86) x10^3/uL Absolute Nucleated RBC (0.00-0.012) x10^3u/L Lymphocytes % (19.3-51.7) % Monocytes % (4.7-12.5) % Eosinophils % (0.7-5.8) % Basophils % (0.1-1.2) % Absolute Granulocytes (1.56-6.13) x10^3/uL Basophils # (0.01-0.08) x10^3/uL D-Dimer 0.39 (0.0-0.50) mg/L Sodium 142 (135-145) mmol/L Potassium 4.4 (3.5-5.1) mmol/L Chloride 108 H (98-107) mmol/L Carbon Dioxide 25 (22-30) mmol/L Anion Gap 12.9 (5-15) MEQ/L BUN 13 (7-17) mg/dL Creatinine 0.71 (0.52-1.04) mg/dL Estimated GFR 102.9 ML/MIN Glucose 134 H (74-106) mg/dL POC Glucometer (74 to 106) mg/dL Lactic Acid (0.4-2.0) Calcium 9.5 (8.4-10.2) mg/dL Magnesium 2.1 (1.6-2.3) mg/dL Total Bilirubin 0.70 (0.2-1.3) mg/dL AST 30 (14-36) U/L ALT 21 (0-35) U/L Alkaline Phosphatase 49 (38-126) U/L Troponin I (0.000-0.033) ng/mL NT-Pro-B Natriuret Pep (<300) pg/mL Serum Total Protein 7.5 (6.3-8.2) g/dL Albumin 4.5 (3.5-5.0) g/dL Free T4 (0.78-2.19) ng/dL TSH 3rd Generation 0.921 (0.470-4.680) mIU/L Urine Color (Yellow) Urine Appearance (Clear) Urine pH (4.6-8.0) Ur Specific [place] (1.005-1.030) Urine Protein (Negative) Urine Glucose (UA) (Negative) mg/dL Urine Ketones (Negative) Urine Blood (Negative) Urine Nitrite (Negative) Urine Bilirubin (Negative) Urine Urobilinogen (0.2) mg/dL Ur Leukocyte Esterase (Negative) U Hyaline Cast (Auto) (0-2) /LPF Urine Microscopic RBC (0-5) /HPF Urine Microscopic WBC (0-5) /HPF Ur Epithelial Cells (None Seen) /HPF Urine Bacteria (None Seen) /HPF Urine Culture Reflexed (NO) Urine Opiates Level (NEGATIVE) Ur Methadone (NEGATIVE) Urine Barbiturates (NEGATIVE) Ur Phencyclidine (PCP) (NEGATIVE) Urine Amphetamine (NEGATIVE) U Benzodiazepine Level (NEGATIVE) Urine Cocaine (NEGATIVE) Urine Marijuana (THC) (NEGATIVE) 10/13/24 10/13/24 10/13/24 Range/Units 11:37 11:37 11:39 WBC (3.98-10.04) x10^3/uL RBC (3.93-5.22) x10^6/uL Hgb (11.2-15.7) g/dL Hct (34.1-44.9) % MCV (79.4-94.8) fL MCH (25.6-32.2) pg MCHC (32.2-35.5) g/dL RDW (11.7-14.4) % Plt Count (182-369) x10^3/uL MPV (9.4-12.3) fL Gran % (34.0-71.1) % Immature Gran % (Auto) (0.001-0.429) % Nucleat RBC Rel Count (0.00-0.2) % Eos # (Auto) (0.04-0.36) x10^3/uL Immature Gran # (Auto) (0.001-0.031) x10^3u/L Absolute Lymphs (auto) (1.18-3.74) x10^3/uL Absolute Monos (auto) (0.24-0.86) x10^3/uL Absolute Nucleated RBC (0.00-0.012) x10^3u/L Lymphocytes % (19.3-51.7) % Monocytes % (4.7-12.5) % Eosinophils % (0.7-5.8) % Basophils % (0.1-1.2) % Absolute Granulocytes (1.56-6.13) x10^3/uL Basophils # (0.01-0.08) x10^3/uL D-Dimer (0.0-0.50) mg/L Sodium (135-145) mmol/L Potassium (3.5-5.1) mmol/L Chloride (98-107) mmol/L Carbon Dioxide (22-30) mmol/L Anion Gap (5-15) MEQ/L BUN (7-17) mg/dL Creatinine (0.52-1.04) mg/dL Estimated GFR ML/MIN Glucose (74-106) mg/dL POC Glucometer (74 to 106) mg/dL Lactic Acid (0.4-2.0) Calcium (8.4-10.2) mg/dL Magnesium (1.6-2.3) mg/dL Total Bilirubin (0.2-1.3) mg/dL AST (14-36) U/L ALT (0-35) U/L Alkaline Phosphatase (38-126) U/L Troponin I < 0.012 (0.000-0.033) ng/mL NT-Pro-B Natriuret Pep 43.4 (<300) pg/mL Serum Total Protein (6.3-8.2) g/dL Albumin (3.5-5.0) g/dL Free T4 1.22 (0.78-2.19) ng/dL TSH 3rd Generation (0.470-4.680) mIU/L Urine Color Yellow (Yellow) Urine Appearance Clear (Clear) Urine pH 7.0 (4.6-8.0) Ur Specific [place] <=1.005 (1.005-1.030) Urine Protein 100 A (Negative) Urine Glucose (UA) Negative (Negative) mg/dL Urine Ketones Negative (Negative) Urine Blood Negative (Negative) Urine Nitrite Negative (Negative) Urine Bilirubin Negative (Negative) Urine Urobilinogen 0.2 (0.2) mg/dL Ur Leukocyte Esterase Negative (Negative) U Hyaline Cast (Auto) NONE SEEN (0-2) /LPF Urine Microscopic RBC 0-2 (0-5) /HPF Urine Microscopic WBC 0-2 (0-5) /HPF Ur Epithelial Cells None Seen (None Seen) /HPF Urine Bacteria None Seen (None Seen) /HPF Urine Culture Reflexed NO (NO) Urine Opiates Level (NEGATIVE) Ur Methadone (NEGATIVE) Urine Barbiturates (NEGATIVE) Ur Phencyclidine (PCP) (NEGATIVE) Urine Amphetamine (NEGATIVE) U Benzodiazepine Level (NEGATIVE) Urine Cocaine (NEGATIVE) Urine Marijuana (THC) (NEGATIVE) 10/13/24 Range/Units 11:39 WBC (3.98-10.04) x10^3/uL RBC (3.93-5.22) x10^6/uL Hgb (11.2-15.7) g/dL Hct (34.1-44.9) % MCV (79.4-94.8) fL MCH (25.6-32.2) pg MCHC (32.2-35.5) g/dL RDW (11.7-14.4) % Plt Count (182-369) x10^3/uL MPV (9.4-12.3) fL Gran % (34.0-71.1) % Immature Gran % (Auto) (0.001-0.429) % Nucleat RBC Rel Count (0.00-0.2) % Eos # (Auto) (0.04-0.36) x10^3/uL Immature Gran # (Auto) (0.001-0.031) x10^3u/L Absolute Lymphs (auto) (1.18-3.74) x10^3/uL Absolute Monos (auto) (0.24-0.86) x10^3/uL Absolute Nucleated RBC (0.00-0.012) x10^3u/L Lymphocytes % (19.3-51.7) % Monocytes % (4.7-12.5) % Eosinophils % (0.7-5.8) % Basophils % (0.1-1.2) % Absolute Granulocytes (1.56-6.13) x10^3/uL Basophils # (0.01-0.08) x10^3/uL D-Dimer (0.0-0.50) mg/L Sodium (135-145) mmol/L Potassium (3.5-5.1) mmol/L Chloride (98-107) mmol/L Carbon Dioxide (22-30) mmol/L Anion Gap (5-15) MEQ/L BUN (7-17) mg/dL Creatinine (0.52-1.04) mg/dL Estimated GFR ML/MIN Glucose (74-106) mg/dL POC Glucometer (74 to 106) mg/dL Lactic Acid (0.4-2.0) Calcium (8.4-10.2) mg/dL Magnesium (1.6-2.3) mg/dL Total Bilirubin (0.2-1.3) mg/dL AST (14-36) U/L ALT (0-35) U/L Alkaline Phosphatase (38-126) U/L Troponin I (0.000-0.033) ng/mL NT-Pro-B Natriuret Pep (<300) pg/mL Serum Total Protein (6.3-8.2) g/dL Albumin (3.5-5.0) g/dL Free T4 (0.78-2.19) ng/dL TSH 3rd Generation (0.470-4.680) mIU/L Urine Color (Yellow) Urine Appearance (Clear) Urine pH (4.6-8.0) Ur Specific [place] (1.005-1.030) Urine Protein (Negative) Urine Glucose (UA) (Negative) mg/dL Urine Ketones (Negative) Urine Blood (Negative) Urine Nitrite (Negative) Urine Bilirubin (Negative) Urine Urobilinogen (0.2) mg/dL Ur Leukocyte Esterase (Negative) U Hyaline Cast (Auto) (0-2) /LPF Urine Microscopic RBC (0-5) /HPF Urine Microscopic WBC (0-5) /HPF Ur Epithelial Cells (None Seen) /HPF Urine Bacteria (None Seen) /HPF Urine Culture Reflexed (NO) Urine Opiates Level NEGATIVE (NEGATIVE) Ur Methadone NEGATIVE (NEGATIVE) Urine Barbiturates NEGATIVE (NEGATIVE) Ur Phencyclidine (PCP) NEGATIVE (NEGATIVE) Urine Amphetamine NEGATIVE (NEGATIVE) U Benzodiazepine Level NEGATIVE (NEGATIVE) Urine Cocaine NEGATIVE (NEGATIVE) Urine Marijuana (THC) NEGATIVE (NEGATIVE) Accuchecks Date 10/13/24 Time 11:18 - Radiology Impressions Radiology Exams & Impressions: Radiology Procedures Category Date Time Status CHEST 1 VIEW (PORTABLE) Stat Exams 10/13/24 11:26 Taken HEAD WITHOUT CONTRAST [CT] Stat Exams 10/13/24 12:04 Completed Assessment/Plan (1) SVT (supraventricular tachycardia) Current Visit: No Status: Acute Assessment & Plan: -EKG with SVT HR 162 with no signs of ischemia -UDS negative -Metoprolol 5mg given in ED - HR now controlled in the 70's-80's -Holter monitor testing from 09/01/23 reviewed with the impression of 1) SINUS RHYTHM. 2) RARE PACS AND ONE SHORT EPISODE OF PAROXYSMAL ATRIAL TACHYCARDIA CONSISTING OF 6 BEATs -Patient follows with Dr. Ashton as OP- on metoprolol -TSH WNL -Trop x1 WNL - continue series -BNP WNL -DDimer WNL -tele -Repeat EKG in the a.m. -CXR pending -Cardiology consult -Optimize electrolytes -CMP/CBC reviewed Code(s): I47.10 - SUPRAVENTRICULAR TACHYCARDIA, UNSPECIFIED (2) Left-sided weakness Current Visit: Yes Status: Acute Assessment & Plan: -CT head showed a small left basal ganglia hypodensity, likely from an old stroke -Neuro consulted in ED recommending MRI Brain w/o contrast - unavailable over the weekend -symptoms have resolved -324mg ASA given in ED -Will obtain lipid, A1c -Continue home statin Code(s): R53.1 - WEAKNESS (3) Hypertension Current Visit: No Status: Acute Qualifiers: Hypertension type: essential hypertension Assessment & Plan: -BP now stable at 130/65 - will continue to monitor -continue home meds Code(s): I10 - ESSENTIAL (PRIMARY) HYPERTENSION (4) Leukocytosis Current Visit: No Status: Acute Qualifiers: Leukocytosis type: unspecified Qualified Code(s): D72.829 - Elevated white blood cell count, unspecified Assessment & Plan: -mild - most likely reactive -CXR pending -UA unremarkable -WBC reviewed at 11.6- will monitor -LA WNL Code(s): D72.829 - ELEVATED WHITE BLOOD CELL COUNT, UNSPECIFIED (5) Hyperlipidemia Current Visit: No Status: Chronic Assessment & Plan: -continue home statin Code(s): E78.5 - HYPERLIPIDEMIA, UNSPECIFIED (6) Smoker Current Visit: No Status: Chronic Assessment & Plan: -Smokes 1/2 PPD x 25 years -Advised smoking cessation -nicotine patch Code(s): F17.200 - NICOTINE DEPENDENCE, UNSPECIFIED, UNCOMPLICATED (7) Type II diabetes mellitus Current Visit: No Status: Chronic Qualifiers: Diabetes mellitus terminal operator insulin use: with fci use Diabetes mellitus complication status: without complication Qualified Code(s): E11.9 - Type 2 diabetes mellitus without complications; Z79.4 - buttermilk drier operator (current) use of insulin Assessment & Plan: -ADA diet -A1c -SSI -Patient states she recently stopped Mounjaro about a week ago due to hives VTE: SCD PPI: protonix Dispo: 1-2 days Code status: Full Code Telemedicine Encounter - Telemedicine Encounter Telemedicine Encounter: "The entirety of this encounter was performed via Telemedicine" This visit was performed using real-time audio and video connection between my location and thepatients locationwith the assistance of a surrogateat the patients location. Written or verbal consent was obtained from the patient/guardian to perform this visit usingsyn[employer]enda Techn[employer]iestelemedicine technology. Any patient questions regarding the telemedicine interaction were answered.
[2024-10-13] MEDS ORDERED: HUMALOG SQ PRN (15:10)
[2024-10-13] MEDS ORDERED: Zofran 4 MG/2 ML VIAL IV PRN (15:10)
[2024-10-13] MEDS ORDERED: TYLENOL 325 MG PO PRN (15:10)
[2024-10-13] MEDS: Nicoderm CQ 21 MG TOP SCH (16:19)
[2024-10-13 17:41] LABS: INFLUENZA A NEGATIVE (NEGATIVE); INFLUENZA B NEGATIVE (NEGATIVE); RESPIRATORY SYNCTIAL VIRUS NEGATIVE (NEGATIVE); SARS-CoV-2 Xpert Express NEGATIVE (NEGATIVE)
--- NOTE | 2024-10-13 20:16 | XRAY ---
Indication: Chest pain. Comparison: March 05, 2024 Portable chest again demonstrates normal heart and lungs. Bony thorax intact. No new/acute findings.
[2024-10-13] MEDS ORDERED: Vitamin C 500 MG ONE (21:13)
[2024-10-13] MEDS ORDERED: Cozaar 50 MG ONE (21:13)
[2024-10-13] MEDS ORDERED: Pepcid 20 MG ONE (21:14)
[2024-10-13] MEDS ORDERED: Lopressor 25MG Tab ONE (21:14)
[2024-10-13] MEDS: NON-FORMULARY ITEM (Losartan Potassium [Losartan Potassium] 25 MG Tablet) PO SCH (21:22)
[2024-10-13] MEDS: NON-FORMULARY ITEM (Ascorbic Acid [C-1000] 1,000 MG Tablet) PO SCH (21:23)
[2024-10-13] MEDS: NON-FORMULARY ITEM (Famotidine [Pepcid] 40 MG Tablet) PO SCH (21:24)
[2024-10-13] MEDS: NON-FORMULARY ITEM (Metoprolol Succinate 25 MG Tab.Er.24h) PO SCH (21:24)
[2024-10-13] MEDS: NON-FORMULARY ITEM (Pravastatin Sodium [Pravastatin Sodium] 20 MG Tablet) PO SCH (21:36)
[2024-10-13] MEDS: VILAZODONE HCL 40 MG PO SCH (21:41)
[2024-10-13 23:49] VITALS: O2SAT 97
[2024-10-14 05:45] LABS: Absolute Neutrophil Ct (ANC) 5.13 x10^3/uL (1.56-6.13); BASOPHIL % 0.8 % (0.1-1.2); Basophil (Absolute #) 0.08 x10^3/uL (0.01-0.08); Eosinophil % 3.6 % (0.7-5.8); Eosinophil (Absolute #) 0.35 x10^3/uL (0.04-0.36); Hematocrit 41.9 % (34.1-44.9); Hemoglobin 13.7 g/dL (11.2-15.7); IMMATURE GRAN # 0.02 x10^3u/L (0.001-0.031); IMMATURE GRAN % 0.2 % (0.001-0.429); Lymphocyte (Absolute #) 3.27 x10^3/uL (1.18-3.74); Mean Cell Volume 91.1 fL (79.4-94.8); Mean Corpuscular Hemoglobin 29.8 pg (25.6-32.2); Mean Corpuscular Hgb Concent. 32.7 g/dL (32.2-35.5); Mean Platelet Volume 10.3 fL (9.4-12.3); Monocyte (Absolute #) 0.77 x10^3/uL (0.24-0.86); Neutrophil % 53.4 % (34.0-71.1); Platelet Count 352 x10^3/uL (182-369); Red Cell Distribution Width 13.3 % (11.7-14.4); White Blood Count 9.6 x10^3/uL (3.98-10.04)
[2024-10-14 06:00] LABS: ALBUMIN 3.4 g/dL (3.5-5.0); ANION GAP 9.5 MEQ/L (5-15); BILIRUBIN,TOTAL 0.4 mg/dL (0.2-1.3); Calcium 8.7 mg/dL (8.4-10.2); Creatinine 1 0.63 mg/dL (0.52-1.04); EST GLOMERULAR FILTRATION RATE 107.3 ML/MIN; Potassium 4.2 mmol/L (3.5-5.1); Total Protein 5.9 g/dL (6.3-8.2)
[2024-10-14] MEDS ORDERED: MEDICATION INTERVENTION MC SCH (07:30)
[2024-10-14 09:01] VITALS: BP 143/63; PULSE 63; RESP 15; TEMP 98.6
--- NOTE | 2024-10-14 09:04 | PCM.DS ---
Discharge Summary Date of Admission: 10/13/24 14:15 Date of Discharge: 10/14/24 Admitting Physician: RADHA PATTEN MD Consults: Consults on Case 10/13/24 13:41 Tele-Health Consult ROUTINE Primary Care Provider: CHRISTIANA HEATH Allergies Allergies grapefruit Allergy (Verified 10/13/24 11:18) Hives latex Allergy (Verified 10/13/24 11:18) Hives hives on hands Latex, Natural Rubber Allergy (Verified 10/13/24 11:18) morphine Allergy (Verified 10/13/24 11:18) codeine Adverse Reaction (Severe, Verified 10/13/24 11:18) doxycycline Adverse Reaction (Mild, Verified 10/13/24 11:18) Hospital Summary - Hospital Course Hospital Course: Ms. Mario is a 49 year old female with a PMHX of SVT, DMII, HILDA, HLD, HTN, and asthma who presented 10/13/24 with sudden-onset palpitations that began while brushing their teeth in the shower. She describe a sensation of rapid, uncontrolled heartbeats and report associated fatigue, though she denies chest pain, syncope, or dyspnea. She also reports an elevated BP at home systolically in the 180's and left-sided weakness in her upper extremity. A business change manager notes altered behavior compared to her baseline in the sense that the patient was acting very lethargic and having difficulty finding her words. The patient reports a similar episode of rapid heart rate one year ago and is currently under the care of a clinical application consultant, Dr. Mcgarry. At that time she was placed on two week holter monitor which came back with no events. She is prescribed metoprolol with no recent changes in her dosing. Patient On arrival,patient was hypertensive at 172/105 and tachycardic at 165 bpm. EKG showed sinus tachycardia at 162 bpm with no signs of ischemia. Labs revealed mild leukocytosis (WBC 11.6), elevated hemoglobin (17.3), and a high platelet count (461). A CT scan of the head showed a small left basal ganglia hypodensity, likely from an old stroke. The patient was treated with IV metoprolol, calcium gluconate, aspirin, and IV fluids, which brought her heart rate down to 84 bpm. Symptoms suggest an episode of uncontrolled tachycardia, possibly due to inad equate rate control or another trigger. Admit for SVT with continuous heart monitoring, Neurology was consulted in ED patient to start daily aspirin and continue statin with follow up with PCP. No overnight events noted on Tele. Labs and vitals stable. Patient states she is at her baseline. Patient remains in sinus rhythm. Will discharge home on two week halter monitor and follow up with her clinical application consultant Dr. Mcgarry. Continue Metoprolol as prescribed. Strongly advised smoking cessation. Discharge Note New Diagnosis: SVT New Medications: Aspirin - continue statin Follow Up: PCP Results pending: Holter monitor I spent 35 minutes [id number] with the patient on the day of discharge performing discharge exam, discussing hospital stay and discharge instructions with patient and caregivers, preparation of discharge records, prescriptions & referral forms and addressing any questions/concerns the patient had as documented above. - Vitals & Intake/Output Vital Signs: Vital Signs Temperature 97.3 F 10/14/24 04:00 Pulse Rate 61 10/14/24 04:00 Respiratory Rate 18 10/14/24 04:00 Blood Pressure 102/55 10/14/24 04:00 O2 Sat by Pulse Oximetry 97 10/14/24 04:00 Intake & Output: Intake & Output 10/11/24 10/12/24 10/13/24 10/14/24 11:59 11:59 11:59 11:59 Intake Total 1291 Balance 1291 Weight 81 kg 81 kg - Lab Result Diagrams: 10/14/24 05:30 10/14/24 05:30 Lab Results-Last 24 Hrs: Lab Results-Last 24 Hours 10/13/24 10/13/24 10/13/24 Range/Units 11:18 11:26 11:35 WBC 11.6 H (3.98-10.04) x10^3/uL RBC 5.81 H (3.93-5.22) x10^6/uL Hgb 17.3 H (11.2-15.7) g/dL Hct 50.8 H (34.1-44.9) % MCV 87.4 (79.4-94.8) fL MCH 29.8 (25.6-32.2) pg MCHC 34.1 (32.2-35.5) g/dL RDW 13.0 (11.7-14.4) % Plt Count 461 H (182-369) x10^3/uL MPV 10.1 (9.4-12.3) fL Gran % 50.8 (34.0-71.1) % Immature Gran % (Auto) 0.3 (0.001-0.429) % Nucleat RBC Rel Count 0.0 (0.00-0.2) % Eos # (Auto) 0.35 (0.04-0.36) x10^3/uL Immature Gran # (Auto) 0.03 (0.001-0.031) x10^3u/L Absolute Lymphs (auto) 4.26 H (1.18-3.74) x10^3/uL Absolute Monos (auto) 0.94 H (0.24-0.86) x10^3/uL Absolute Nucleated RBC 0.00 (0.00-0.012) x10^3u/L Lymphocytes % 36.9 (19.3-51.7) % Monocytes % 8.1 (4.7-12.5) % Eosinophils % 3.0 (0.7-5.8) % Basophils % 0.9 (0.1-1.2) % Absolute Granulocytes 5.88 (1.56-6.13) x10^3/uL Basophils # 0.10 H (0.01-0.08) x10^3/uL D-Dimer (0.0-0.50) mg/L Sodium (135-145) mmol/L Potassium (3.5-5.1) mmol/L Chloride (98-107) mmol/L Carbon Dioxide (22-30) mmol/L Anion Gap (5-15) MEQ/L BUN (7-17) mg/dL Creatinine (0.52-1.04) mg/dL Estimated GFR ML/MIN Glucose (74-106) mg/dL POC Glucometer 118 H (74 to 106) mg/dL Lactic Acid 1.3 (0.4-2.0) Calcium (8.4-10.2) mg/dL Magnesium (1.6-2.3) mg/dL Total Bilirubin (0.2-1.3) mg/dL AST (14-36) U/L ALT (0-35) U/L Alkaline Phosphatase (38-126) U/L Troponin I (0.000-0.033) ng/mL NT-Pro-B Natriuret Pep (<300) pg/mL Serum Total Protein (6.3-8.2) g/dL Albumin (3.5-5.0) g/dL Free T4 (0.78-2.19) ng/dL TSH 3rd Generation (0.470-4.680) mIU/L Urine Color (Yellow) Urine Appearance (Clear) Urine pH (4.6-8.0) Ur Specific [place] (1.005-1.030) Urine Protein (Negative) Urine Glucose (UA) (Negative) mg/dL Urine Ketones (Negative) Urine Blood (Negative) Urine Nitrite (Negative) Urine Bilirubin (Negative) Urine Urobilinogen (0.2) mg/dL Ur Leukocyte Esterase (Negative) U Hyaline Cast (Auto) (0-2) /LPF Urine Microscopic RBC (0-5) /HPF Urine Microscopic WBC (0-5) /HPF Ur Epithelial Cells (None Seen) /HPF Urine Bacteria (None Seen) /HPF Urine Culture Reflexed (NO) Urine Opiates Level (NEGATIVE) Ur Methadone (NEGATIVE) Urine Barbiturates (NEGATIVE) Ur Phencyclidine (PCP) (NEGATIVE) Urine Amphetamine (NEGATIVE) U Benzodiazepine Level (NEGATIVE) Urine Cocaine (NEGATIVE) Urine Marijuana (THC) (NEGATIVE) Influenza Type A Ag (NEGATIVE) Influenza Type B Ag (NEGATIVE) RSV (PCR) (NEGATIVE) SARS-CoV-2 (PCR) (NEGATIVE) 10/13/24 10/13/24 10/13/24 Range/Units 11:37 11:37 11:37 WBC (3.98-10.04) x10^3/uL RBC (3.93-5.22) x10^6/uL Hgb (11.2-15.7) g/dL Hct (34.1-44.9) % MCV (79.4-94.8) fL MCH (25.6-32.2) pg MCHC (32.2-35.5) g/dL RDW (11.7-14.4) % Plt Count (182-369) x10^3/uL MPV (9.4-12.3) fL Gran % (34.0-71.1) % Immature Gran % (Auto) (0.001-0.429) % Nucleat RBC Rel Count (0.00-0.2) % Eos # (Auto) (0.04-0.36) x10^3/uL Immature Gran # (Auto) (0.001-0.031) x10^3u/L Absolute Lymphs (auto) (1.18-3.74) x10^3/uL Absolute Monos (auto) (0.24-0.86) x10^3/uL Absolute Nucleated RBC (0.00-0.012) x10^3u/L Lymphocytes % (19.3-51.7) % Monocytes % (4.7-12.5) % Eosinophils % (0.7-5.8) % Basophils % (0.1-1.2) % Absolute Granulocytes (1.56-6.13) x10^3/uL Basophils # (0.01-0.08) x10^3/uL D-Dimer 0.39 (0.0-0.50) mg/L Sodium 142 (135-145) mmol/L Potassium 4.4 (3.5-5.1) mmol/L Chloride 108 H (98-107) mmol/L Carbon Dioxide 25 (22-30) mmol/L Anion Gap 12.9 (5-15) MEQ/L BUN 13 (7-17) mg/dL Creatinine 0.71 (0.52-1.04) mg/dL Estimated GFR 102.9 ML/MIN Glucose 134 H (74-106) mg/dL POC Glucometer (74 to 106) mg/dL Lactic Acid (0.4-2.0) Calcium 9.5 (8.4-10.2) mg/dL Magnesium 2.1 (1.6-2.3) mg/dL Total Bilirubin 0.70 (0.2-1.3) mg/dL AST 30 (14-36) U/L ALT 21 (0-35) U/L Alkaline Phosphatase 49 (38-126) U/L Troponin I (0.000-0.033) ng/mL NT-Pro-B Natriuret Pep (<300) pg/mL Serum Total Protein 7.5 (6.3-8.2) g/dL Albumin 4.5 (3.5-5.0) g/dL Free T4 (0.78-2.19) ng/dL TSH 3rd Generation 0.921 (0.470-4.680) mIU/L Urine Color (Yellow) Urine Appearance (Clear) Urine pH (4.6-8.0) Ur Specific [place] (1.005-1.030) Urine Protein (Negative) Urine Glucose (UA) (Negative) mg/dL Urine Ketones (Negative) Urine Blood (Negative) Urine Nitrite (Negative) Urine Bilirubin (Negative) Urine Urobilinogen (0.2) mg/dL Ur Leukocyte Esterase (Negative) U Hyaline Cast (Auto) (0-2) /LPF Urine Microscopic RBC (0-5) /HPF Urine Microscopic WBC (0-5) /HPF Ur Epithelial Cells (None Seen) /HPF Urine Bacteria (None Seen) /HPF Urine Culture Reflexed (NO) Urine Opiates Level (NEGATIVE) Ur Methadone (NEGATIVE) Urine Barbiturates (NEGATIVE) Ur Phencyclidine (PCP) (NEGATIVE) Urine Amphetamine (NEGATIVE) U Benzodiazepine Level (NEGATIVE) Urine Cocaine (NEGATIVE) Urine Marijuana (THC) (NEGATIVE) Influenza Type A Ag (NEGATIVE) Influenza Type B Ag (NEGATIVE) RSV (PCR) (NEGATIVE) SARS-CoV-2 (PCR) (NEGATIVE) 10/13/24 10/13/24 10/13/24 Range/Units 11:37 11:37 11:39 WBC (3.98-10.04) x10^3/uL RBC (3.93-5.22) x10^6/uL Hgb (11.2-15.7) g/dL Hct (34.1-44.9) % MCV (79.4-94.8) fL MCH (25.6-32.2) pg MCHC (32.2-35.5) g/dL RDW (11.7-14.4) % Plt Count (182-369) x10^3/uL MPV (9.4-12.3) fL Gran % (34.0-71.1) % Immature Gran % (Auto) (0.001-0.429) % Nucleat RBC Rel Count (0.00-0.2) % Eos # (Auto) (0.04-0.36) x10^3/uL Immature Gran # (Auto) (0.001-0.031) x10^3u/L Absolute Lymphs (auto) (1.18-3.74) x10^3/uL Absolute Monos (auto) (0.24-0.86) x10^3/uL Absolute Nucleated RBC (0.00-0.012) x10^3u/L Lymphocytes % (19.3-51.7) % Monocytes % (4.7-12.5) % Eosinophils % (0.7-5.8) % Basophils % (0.1-1.2) % Absolute Granulocytes (1.56-6.13) x10^3/uL Basophils # (0.01-0.08) x10^3/uL D-Dimer (0.0-0.50) mg/L Sodium (135-145) mmol/L Potassium (3.5-5.1) mmol/L Chloride (98-107) mmol/L Carbon Dioxide (22-30) mmol/L Anion Gap (5-15) MEQ/L BUN (7-17) mg/dL Creatinine (0.52-1.04) mg/dL Estimated GFR ML/MIN Glucose (74-106) mg/dL POC Glucometer (74 to 106) mg/dL Lactic Acid (0.4-2.0) Calcium (8.4-10.2) mg/dL Magnesium (1.6-2.3) mg/dL Total Bilirubin (0.2-1.3) mg/dL AST (14-36) U/L ALT (0-35) U/L Alkaline Phosphatase (38-126) U/L Troponin I < 0.012 (0.000-0.033) ng/mL NT-Pro-B Natriuret Pep 43.4 (<300) pg/mL Serum Total Protein (6.3-8.2) g/dL Albumin (3.5-5.0) g/dL Free T4 1.22 (0.78-2.19) ng/dL TSH 3rd Generation (0.470-4.680) mIU/L Urine Color Yellow (Yellow) Urine Appearance Clear (Clear) Urine pH 7.0 (4.6-8.0) Ur Specific [place] <=1.005 (1.005-1.030) Urine Protein 100 A (Negative) Urine Glucose (UA) Negative (Negative) mg/dL Urine Ketones Negative (Negative) Urine Blood Negative (Negative) Urine Nitrite Negative (Negative) Urine Bilirubin Negative (Negative) Urine Urobilinogen 0.2 (0.2) mg/dL Ur Leukocyte Esterase Negative (Negative) U Hyaline Cast (Auto) NONE SEEN (0-2) /LPF Urine Microscopic RBC 0-2 (0-5) /HPF Urine Microscopic WBC 0-2 (0-5) /HPF Ur Epithelial Cells None Seen (None Seen) /HPF Urine Bacteria None Seen (None Seen) /HPF Urine Culture Reflexed NO (NO) Urine Opiates Level (NEGATIVE) Ur Methadone (NEGATIVE) Urine Barbiturates (NEGATIVE) Ur Phencyclidine (PCP) (NEGATIVE) Urine Amphetamine (NEGATIVE) U Benzodiazepine Level (NEGATIVE) Urine Cocaine (NEGATIVE) Urine Marijuana (THC) (NEGATIVE) Influenza Type A Ag (NEGATIVE) Influenza Type B Ag (NEGATIVE) RSV (PCR) (NEGATIVE) SARS-CoV-2 (PCR) (NEGATIVE) 10/13/24 10/13/24 10/13/24 Range/Units 11:39 15:44 17:03 WBC (3.98-10.04) x10^3/uL RBC (3.93-5.22) x10^6/uL Hgb (11.2-15.7) g/dL Hct (34.1-44.9) % MCV (79.4-94.8) fL MCH (25.6-32.2) pg MCHC (32.2-35.5) g/dL RDW (11.7-14.4) % Plt Count (182-369) x10^3/uL MPV (9.4-12.3) fL Gran % (34.0-71.1) % Immature Gran % (Auto) (0.001-0.429) % Nucleat RBC Rel Count (0.00-0.2) % Eos # (Auto) (0.04-0.36) x10^3/uL Immature Gran # (Auto) (0.001-0.031) x10^3u/L Absolute Lymphs (auto) (1.18-3.74) x10^3/uL Absolute Monos (auto) (0.24-0.86) x10^3/uL Absolute Nucleated RBC (0.00-0.012) x10^3u/L Lymphocytes % (19.3-51.7) % Monocytes % (4.7-12.5) % Eosinophils % (0.7-5.8) % Basophils % (0.1-1.2) % Absolute Granulocytes (1.56-6.13) x10^3/uL Basophils # (0.01-0.08) x10^3/uL D-Dimer (0.0-0.50) mg/L Sodium (135-145) mmol/L Potassium (3.5-5.1) mmol/L Chloride (98-107) mmol/L Carbon Dioxide (22-30) mmol/L Anion Gap (5-15) MEQ/L BUN (7-17) mg/dL Creatinine (0.52-1.04) mg/dL Estimated GFR ML/MIN Glucose (74-106) mg/dL POC Glucometer (74 to 106) mg/dL Lactic Acid (0.4-2.0) Calcium (8.4-10.2) mg/dL Magnesium (1.6-2.3) mg/dL Total Bilirubin (0.2-1.3) mg/dL AST (14-36) U/L ALT (0-35) U/L Alkaline Phosphatase (38-126) U/L Troponin I 0.017 (0.000-0.033) ng/mL NT-Pro-B Natriuret Pep (<300) pg/mL Serum Total Protein (6.3-8.2) g/dL Albumin (3.5-5.0) g/dL Free T4 (0.78-2.19) ng/dL TSH 3rd Generation (0.470-4.680) mIU/L Urine Color (Yellow) Urine Appearance (Clear) Urine pH (4.6-8.0) Ur Specific [place] (1.005-1.030) Urine Protein (Negative) Urine Glucose (UA) (Negative) mg/dL Urine Ketones (Negative) Urine Blood (Negative) Urine Nitrite (Negative) Urine Bilirubin (Negative) Urine Urobilinogen (0.2) mg/dL Ur Leukocyte Esterase (Negative) U Hyaline Cast (Auto) (0-2) /LPF Urine Microscopic RBC (0-5) /HPF Urine Microscopic WBC (0-5) /HPF Ur Epithelial Cells (None Seen) /HPF Urine Bacteria (None Seen) /HPF Urine Culture Reflexed (NO) Urine Opiates Level NEGATIVE (NEGATIVE) Ur Methadone NEGATIVE (NEGATIVE) Urine Barbiturates NEGATIVE (NEGATIVE) Ur Phencyclidine (PCP) NEGATIVE (NEGATIVE) Urine Amphetamine NEGATIVE (NEGATIVE) U Benzodiazepine Level NEGATIVE (NEGATIVE) Urine Cocaine NEGATIVE (NEGATIVE) Urine Marijuana (THC) NEGATIVE (NEGATIVE) Influenza Type A Ag NEGATIVE (NEGATIVE) Influenza Type B Ag NEGATIVE (NEGATIVE) RSV (PCR) NEGATIVE (NEGATIVE) SARS-CoV-2 (PCR) NEGATIVE (NEGATIVE) 10/13/24 10/14/24 10/14/24 Range/Units 20:30 05:30 05:30 WBC 9.6 (3.98-10.04) x10^3/uL RBC 4.60 (3.93-5.22) x10^6/uL Hgb 13.7 D (11.2-15.7) g/dL Hct 41.9 (34.1-44.9) % MCV 91.1 (79.4-94.8) fL MCH 29.8 (25.6-32.2) pg MCHC 32.7 (32.2-35.5) g/dL RDW 13.3 (11.7-14.4) % Plt Count 352 (182-369) x10^3/uL MPV 10.3 (9.4-12.3) fL Gran % 53.4 (34.0-71.1) % Immature Gran % (Auto) 0.2 (0.001-0.429) % Nucleat RBC Rel Count 0.0 (0.00-0.2) % Eos # (Auto) 0.35 (0.04-0.36) x10^3/uL Immature Gran # (Auto) 0.02 (0.001-0.031) x10^3u/L Absolute Lymphs (auto) 3.27 (1.18-3.74) x10^3/uL Absolute Monos (auto) 0.77 (0.24-0.86) x10^3/uL Absolute Nucleated RBC 0.00 (0.00-0.012) x10^3u/L Lymphocytes % 34.0 (19.3-51.7) % Monocytes % 8.0 (4.7-12.5) % Eosinophils % 3.6 (0.7-5.8) % Basophils % 0.8 (0.1-1.2) % Absolute Granulocytes 5.13 (1.56-6.13) x10^3/uL Basophils # 0.08 (0.01-0.08) x10^3/uL D-Dimer (0.0-0.50) mg/L Sodium 140 (135-145) mmol/L Potassium 4.2 (3.5-5.1) mmol/L Chloride 109 H (98-107) mmol/L Carbon Dioxide 26 (22-30) mmol/L Anion Gap 9.5 (5-15) MEQ/L BUN 13 (7-17) mg/dL Creatinine 0.63 (0.52-1.04) mg/dL Estimated GFR 107.3 ML/MIN Glucose 109 H (74-106) mg/dL POC Glucometer (74 to 106) mg/dL Lactic Acid (0.4-2.0) Calcium 8.7 (8.4-10.2) mg/dL Magnesium (1.6-2.3) mg/dL Total Bilirubin 0.40 (0.2-1.3) mg/dL AST 24 (14-36) U/L ALT 18 (0-35) U/L Alkaline Phosphatase 38 (38-126) U/L Troponin I 0.019 (0.000-0.033) ng/mL NT-Pro-B Natriuret Pep (<300) pg/mL Serum Total Protein 5.9 L (6.3-8.2) g/dL Albumin 3.4 L (3.5-5.0) g/dL Free T4 (0.78-2.19) ng/dL TSH 3rd Generation (0.470-4.680) mIU/L Urine Color (Yellow) Urine Appearance (Clear) Urine pH (4.6-8.0) Ur Specific [place] (1.005-1.030) Urine Protein (Negative) Urine Glucose (UA) (Negative) mg/dL Urine Ketones (Negative) Urine Blood (Negative) Urine Nitrite (Negative) Urine Bilirubin (Negative) Urine Urobilinogen (0.2) mg/dL Ur Leukocyte Esterase (Negative) U Hyaline Cast (Auto) (0-2) /LPF Urine Microscopic RBC (0-5) /HPF Urine Microscopic WBC (0-5) /HPF Ur Epithelial Cells (None Seen) /HPF Urine Bacteria (None Seen) /HPF Urine Culture Reflexed (NO) Urine Opiates Level (NEGATIVE) Ur Methadone (NEGATIVE) Urine Barbiturates (NEGATIVE) Ur Phencyclidine (PCP) (NEGATIVE) Urine Amphetamine (NEGATIVE) U Benzodiazepine Level (NEGATIVE) Urine Cocaine (NEGATIVE) Urine Marijuana (THC) (NEGATIVE) Influenza Type A Ag (NEGATIVE) Influenza Type B Ag (NEGATIVE) RSV (PCR) (NEGATIVE) SARS-CoV-2 (PCR) (NEGATIVE) Micro Results-Entire Visit: Accuchecks Date 10/13/24 Time 11:18 - Radiology Exams Ordered Rad Exams-Entire Visit: Radiology Procedures Category Date Time Status CHEST 1 VIEW (PORTABLE) Stat Exams 10/13/24 11:26 Completed HEAD WITHOUT CONTRAST [CT] Stat Exams 10/13/24 12:04 Completed - Procedures and Test Procedures and Tests throughout Hospitalization: Therapy Orders & Screens 10/13/24 14:43 Smoking Cessation Education ONCE Comment: Diagnosis: sinus tachycardia Smoking Status: Current every day smoker How long have you smoked: 20 Have you smoked in the past 12 months: Yes Approximately how many cigarettes per day: 7 Do you dip or chew tobacco: No If,Former Smoker,when did you quit: 02/201410/13/24 15:10 EKG REPEAT IN AM Comment: Diagnosis: sinus tachycardia Discharge Exam General Appearance: no apparent distress Neurologic Exam: alert, oriented x 3, cooperative Eye Exam: PERRL Ears, Nose, Throat Exam: normal ENT inspection Neck Exam: normal inspection Respiratory Exam: normal breath sounds, lungs clear Cardiovascular Exam: regular rate/rhythm, normal heart sounds Gastrointestinal/Abdomen Exam: soft, normal bowel sounds Pelvic Exam: deferred Rectal Exam: deferred Back Exam: normal inspection Extremity Exam: normal inspection Skin Exam: normal color Final Diagnosis/Problem List - Final Discharge Diagnosis/Problem (1) SVT (supraventricular tachycardia) Current Visit: No Status: Resolved Code(s): I47.10 - SUPRAVENTRICULAR TACHYCARDIA, UNSPECIFIED (2) Left-sided weakness Current Visit: Yes Status: Resolved Code(s): R53.1 - WEAKNESS (3) Hypertension Current Visit: No Status: Chronic Code(s): I10 - ESSENTIAL (PRIMARY) HYPERTENSION (4) Leukocytosis Current Visit: No Status: Resolved Code(s): D72.829 - ELEVATED WHITE BLOOD CELL COUNT, UNSPECIFIED (5) Hyperlipidemia Current Visit: No Status: Chronic Code(s): E78.5 - HYPERLIPIDEMIA, UNSPECIFIED (6) Smoker Current Visit: No Status: Chronic Code(s): F17.200 - NICOTINE DEPENDENCE, UNSPECIFIED, UNCOMPLICATED (7) Type II diabetes mellitus Current Visit: No Status: Chronic - Discharge Discharge Date: 10/14/24 Disposition: Home, Self-Care Condition: Stable Prescriptions: New Aspirin 81 gm Chew [Baby Aspirin 81 mg Chew] 81 mg PO DAILY 30 Days #30 tab.chew Continue Famotidine [Pepcid] 40 mg PO HS Vilazodone HCl 40 mg PO HS Losartan Potassium 25 mg PO HS Estradiol/Norethindrone Acet [Estradiol-Noreth 0.5-0.1 mg Tb] 1 tab PO HS Metoprolol Succinate 25 mg PO HS Pravastatin Sodium 20 mg PO HS Ascorbic Acid [C-1000] 1,000 mg PO HS Omeprazole 40 mg PO HS PRN PRN PRN Reason: GERD Tirzepatide [Mounjaro] 7.5 mg SQ WEEKLY Follow up with: CHRISTIANA HEATH [Primary Care Provider] - SHELLI MCGARRY MD [CONSULTING PHYSICIAN] - (call Tuesday for appt)
[2024-10-14] MEDS: Protonix 40MG Tablet PO SCH (10:41)
--- NOTE | 2024-10-14 11:12 | PCM.DS ---
Discharge Summary Date of Admission: 10/13/24 14:15 Date of Discharge: 10/14/24 Admitting Physician: RADHA PATTEN MD Consults: Consults on Case 10/13/24 13:41 Tele-Health Consult ROUTINE Primary Care Provider: CHRISTIANA HEATH Allergies Allergies grapefruit Allergy (Verified 10/13/24 11:18) Hives latex Allergy (Verified 10/13/24 11:18) Hives hives on hands Latex, Natural Rubber Allergy (Verified 10/13/24 11:18) morphine Allergy (Verified 10/13/24 11:18) codeine Adverse Reaction (Severe, Verified 10/13/24 11:18) doxycycline Adverse Reaction (Mild, Verified 10/13/24 11:18) Hospital Summary - Vitals & Intake/Output Vital Signs: Vital Signs Temperature 98.6 F 10/14/24 08:00 Pulse Rate 63 10/14/24 08:00 Respiratory Rate 15 10/14/24 08:00 Blood Pressure 143/63 10/14/24 08:00 O2 Sat by Pulse Oximetry 97 10/14/24 08:00 Intake & Output: Intake & Output 10/11/24 10/12/24 10/13/24 10/14/24 11:59 11:59 11:59 11:59 Intake Total 1651 Balance 1651 Weight 81 kg 81 kg - Lab Result Diagrams: 10/14/24 05:30 10/14/24 05:30 Lab Results-Last 24 Hrs: Lab Results-Last 24 Hours 10/13/24 10/13/24 10/13/24 Range/Units 11:18 11:26 11:35 WBC 11.6 H (3.98-10.04) x10^3/uL RBC 5.81 H (3.93-5.22) x10^6/uL Hgb 17.3 H (11.2-15.7) g/dL Hct 50.8 H (34.1-44.9) % MCV 87.4 (79.4-94.8) fL MCH 29.8 (25.6-32.2) pg MCHC 34.1 (32.2-35.5) g/dL RDW 13.0 (11.7-14.4) % Plt Count 461 H (182-369) x10^3/uL MPV 10.1 (9.4-12.3) fL Gran % 50.8 (34.0-71.1) % Immature Gran % (Auto) 0.3 (0.001-0.429) % Nucleat RBC Rel Count 0.0 (0.00-0.2) % Eos # (Auto) 0.35 (0.04-0.36) x10^3/uL Immature Gran # (Auto) 0.03 (0.001-0.031) x10^3u/L Absolute Lymphs (auto) 4.26 H (1.18-3.74) x10^3/uL Absolute Monos (auto) 0.94 H (0.24-0.86) x10^3/uL Absolute Nucleated RBC 0.00 (0.00-0.012) x10^3u/L Lymphocytes % 36.9 (19.3-51.7) % Monocytes % 8.1 (4.7-12.5) % Eosinophils % 3.0 (0.7-5.8) % Basophils % 0.9 (0.1-1.2) % Absolute Granulocytes 5.88 (1.56-6.13) x10^3/uL Basophils # 0.10 H (0.01-0.08) x10^3/uL D-Dimer (0.0-0.50) mg/L Sodium (135-145) mmol/L Potassium (3.5-5.1) mmol/L Chloride (98-107) mmol/L Carbon Dioxide (22-30) mmol/L Anion Gap (5-15) MEQ/L BUN (7-17) mg/dL Creatinine (0.52-1.04) mg/dL Estimated GFR ML/MIN Glucose (74-106) mg/dL POC Glucometer 118 H (74 to 106) mg/dL Lactic Acid 1.3 (0.4-2.0) Calcium (8.4-10.2) mg/dL Magnesium (1.6-2.3) mg/dL Total Bilirubin (0.2-1.3) mg/dL AST (14-36) U/L ALT (0-35) U/L Alkaline Phosphatase (38-126) U/L Troponin I (0.000-0.033) ng/mL NT-Pro-B Natriuret Pep (<300) pg/mL Serum Total Protein (6.3-8.2) g/dL Albumin (3.5-5.0) g/dL Triglycerides (30-150) mg/dL Cholesterol (50-200) mg/dL LDL Cholesterol (30-100) mg/dL HDL Cholesterol (40-60) mg/dL Heart Disease Risk Ratio Free T4 (0.78-2.19) ng/dL TSH 3rd Generation (0.470-4.680) mIU/L Urine Color (Yellow) Urine Appearance (Clear) Urine pH (4.6-8.0) Ur Specific [place] (1.005-1.030) Urine Protein (Negative) Urine Glucose (UA) (Negative) mg/dL Urine Ketones (Negative) Urine Blood (Negative) Urine Nitrite (Negative) Urine Bilirubin (Negative) Urine Urobilinogen (0.2) mg/dL Ur Leukocyte Esterase (Negative) U Hyaline Cast (Auto) (0-2) /LPF Urine Microscopic RBC (0-5) /HPF Urine Microscopic WBC (0-5) /HPF Ur Epithelial Cells (None Seen) /HPF Urine Bacteria (None Seen) /HPF Urine Culture Reflexed (NO) Urine Opiates Level (NEGATIVE) Ur Methadone (NEGATIVE) Urine Barbiturates (NEGATIVE) Ur Phencyclidine (PCP) (NEGATIVE) Urine Amphetamine (NEGATIVE) U Benzodiazepine Level (NEGATIVE) Urine Cocaine (NEGATIVE) Urine Marijuana (THC) (NEGATIVE) Influenza Type A Ag (NEGATIVE) Influenza Type B Ag (NEGATIVE) RSV (PCR) (NEGATIVE) SARS-CoV-2 (PCR) (NEGATIVE) 10/13/24 10/13/24 10/13/24 Range/Units 11:37 11:37 11:37 WBC (3.98-10.04) x10^3/uL RBC (3.93-5.22) x10^6/uL Hgb (11.2-15.7) g/dL Hct (34.1-44.9) % MCV (79.4-94.8) fL MCH (25.6-32.2) pg MCHC (32.2-35.5) g/dL RDW (11.7-14.4) % Plt Count (182-369) x10^3/uL MPV (9.4-12.3) fL Gran % (34.0-71.1) % Immature Gran % (Auto) (0.001-0.429) % Nucleat RBC Rel Count (0.00-0.2) % Eos # (Auto) (0.04-0.36) x10^3/uL Immature Gran # (Auto) (0.001-0.031) x10^3u/L Absolute Lymphs (auto) (1.18-3.74) x10^3/uL Absolute Monos (auto) (0.24-0.86) x10^3/uL Absolute Nucleated RBC (0.00-0.012) x10^3u/L Lymphocytes % (19.3-51.7) % Monocytes % (4.7-12.5) % Eosinophils % (0.7-5.8) % Basophils % (0.1-1.2) % Absolute Granulocytes (1.56-6.13) x10^3/uL Basophils # (0.01-0.08) x10^3/uL D-Dimer 0.39 (0.0-0.50) mg/L Sodium 142 (135-145) mmol/L Potassium 4.4 (3.5-5.1) mmol/L Chloride 108 H (98-107) mmol/L Carbon Dioxide 25 (22-30) mmol/L Anion Gap 12.9 (5-15) MEQ/L BUN 13 (7-17) mg/dL Creatinine 0.71 (0.52-1.04) mg/dL Estimated GFR 102.9 ML/MIN Glucose 134 H (74-106) mg/dL POC Glucometer (74 to 106) mg/dL Lactic Acid (0.4-2.0) Calcium 9.5 (8.4-10.2) mg/dL Magnesium 2.1 (1.6-2.3) mg/dL Total Bilirubin 0.70 (0.2-1.3) mg/dL AST 30 (14-36) U/L ALT 21 (0-35) U/L Alkaline Phosphatase 49 (38-126) U/L Troponin I (0.000-0.033) ng/mL NT-Pro-B Natriuret Pep (<300) pg/mL Serum Total Protein 7.5 (6.3-8.2) g/dL Albumin 4.5 (3.5-5.0) g/dL Triglycerides (30-150) mg/dL Cholesterol (50-200) mg/dL LDL Cholesterol (30-100) mg/dL HDL Cholesterol (40-60) mg/dL Heart Disease Risk Ratio Free T4 (0.78-2.19) ng/dL TSH 3rd Generation 0.921 (0.470-4.680) mIU/L Urine Color (Yellow) Urine Appearance (Clear) Urine pH (4.6-8.0) Ur Specific [place] (1.005-1.030) Urine Protein (Negative) Urine Glucose (UA) (Negative) mg/dL Urine Ketones (Negative) Urine Blood (Negative) Urine Nitrite (Negative) Urine Bilirubin (Negative) Urine Urobilinogen (0.2) mg/dL Ur Leukocyte Esterase (Negative) U Hyaline Cast (Auto) (0-2) /LPF Urine Microscopic RBC (0-5) /HPF Urine Microscopic WBC (0-5) /HPF Ur Epithelial Cells (None Seen) /HPF Urine Bacteria (None Seen) /HPF Urine Culture Reflexed (NO) Urine Opiates Level (NEGATIVE) Ur Methadone (NEGATIVE) Urine Barbiturates (NEGATIVE) Ur Phencyclidine (PCP) (NEGATIVE) Urine Amphetamine (NEGATIVE) U Benzodiazepine Level (NEGATIVE) Urine Cocaine (NEGATIVE) Urine Marijuana (THC) (NEGATIVE) Influenza Type A Ag (NEGATIVE) Influenza Type B Ag (NEGATIVE) RSV (PCR) (NEGATIVE) SARS-CoV-2 (PCR) (NEGATIVE) 10/13/24 10/13/24 10/13/24 Range/Units 11:37 11:37 11:39 WBC (3.98-10.04) x10^3/uL RBC (3.93-5.22) x10^6/uL Hgb (11.2-15.7) g/dL Hct (34.1-44.9) % MCV (79.4-94.8) fL MCH (25.6-32.2) pg MCHC (32.2-35.5) g/dL RDW (11.7-14.4) % Plt Count (182-369) x10^3/uL MPV (9.4-12.3) fL Gran % (34.0-71.1) % Immature Gran % (Auto) (0.001-0.429) % Nucleat RBC Rel Count (0.00-0.2) % Eos # (Auto) (0.04-0.36) x10^3/uL Immature Gran # (Auto) (0.001-0.031) x10^3u/L Absolute Lymphs (auto) (1.18-3.74) x10^3/uL Absolute Monos (auto) (0.24-0.86) x10^3/uL Absolute Nucleated RBC (0.00-0.012) x10^3u/L Lymphocytes % (19.3-51.7) % Monocytes % (4.7-12.5) % Eosinophils % (0.7-5.8) % Basophils % (0.1-1.2) % Absolute Granulocytes (1.56-6.13) x10^3/uL Basophils # (0.01-0.08) x10^3/uL D-Dimer (0.0-0.50) mg/L Sodium (135-145) mmol/L Potassium (3.5-5.1) mmol/L Chloride (98-107) mmol/L Carbon Dioxide (22-30) mmol/L Anion Gap (5-15) MEQ/L BUN (7-17) mg/dL Creatinine (0.52-1.04) mg/dL Estimated GFR ML/MIN Glucose (74-106) mg/dL POC Glucometer (74 to 106) mg/dL Lactic Acid (0.4-2.0) Calcium (8.4-10.2) mg/dL Magnesium (1.6-2.3) mg/dL Total Bilirubin (0.2-1.3) mg/dL AST (14-36) U/L ALT (0-35) U/L Alkaline Phosphatase (38-126) U/L Troponin I < 0.012 (0.000-0.033) ng/mL NT-Pro-B Natriuret Pep 43.4 (<300) pg/mL Serum Total Protein (6.3-8.2) g/dL Albumin (3.5-5.0) g/dL Triglycerides (30-150) mg/dL Cholesterol (50-200) mg/dL LDL Cholesterol (30-100) mg/dL HDL Cholesterol (40-60) mg/dL Heart Disease Risk Ratio Free T4 1.22 (0.78-2.19) ng/dL TSH 3rd Generation (0.470-4.680) mIU/L Urine Color Yellow (Yellow) Urine Appearance Clear (Clear) Urine pH 7.0 (4.6-8.0) Ur Specific [place] <=1.005 (1.005-1.030) Urine Protein 100 A (Negative) Urine Glucose (UA) Negative (Negative) mg/dL Urine Ketones Negative (Negative) Urine Blood Negative (Negative) Urine Nitrite Negative (Negative) Urine Bilirubin Negative (Negative) Urine Urobilinogen 0.2 (0.2) mg/dL Ur Leukocyte Esterase Negative (Negative) U Hyaline Cast (Auto) NONE SEEN (0-2) /LPF Urine Microscopic RBC 0-2 (0-5) /HPF Urine Microscopic WBC 0-2 (0-5) /HPF Ur Epithelial Cells None Seen (None Seen) /HPF Urine Bacteria None Seen (None Seen) /HPF Urine Culture Reflexed NO (NO) Urine Opiates Level (NEGATIVE) Ur Methadone (NEGATIVE) Urine Barbiturates (NEGATIVE) Ur Phencyclidine (PCP) (NEGATIVE) Urine Amphetamine (NEGATIVE) U Benzodiazepine Level (NEGATIVE) Urine Cocaine (NEGATIVE) Urine Marijuana (THC) (NEGATIVE) Influenza Type A Ag (NEGATIVE) Influenza Type B Ag (NEGATIVE) RSV (PCR) (NEGATIVE) SARS-CoV-2 (PCR) (NEGATIVE) 10/13/24 10/13/24 10/13/24 Range/Units 11:39 15:44 17:03 WBC (3.98-10.04) x10^3/uL RBC (3.93-5.22) x10^6/uL Hgb (11.2-15.7) g/dL Hct (34.1-44.9) % MCV (79.4-94.8) fL MCH (25.6-32.2) pg MCHC (32.2-35.5) g/dL RDW (11.7-14.4) % Plt Count (182-369) x10^3/uL MPV (9.4-12.3) fL Gran % (34.0-71.1) % Immature Gran % (Auto) (0.001-0.429) % Nucleat RBC Rel Count (0.00-0.2) % Eos # (Auto) (0.04-0.36) x10^3/uL Immature Gran # (Auto) (0.001-0.031) x10^3u/L Absolute Lymphs (auto) (1.18-3.74) x10^3/uL Absolute Monos (auto) (0.24-0.86) x10^3/uL Absolute Nucleated RBC (0.00-0.012) x10^3u/L Lymphocytes % (19.3-51.7) % Monocytes % (4.7-12.5) % Eosinophils % (0.7-5.8) % Basophils % (0.1-1.2) % Absolute Granulocytes (1.56-6.13) x10^3/uL Basophils # (0.01-0.08) x10^3/uL D-Dimer (0.0-0.50) mg/L Sodium (135-145) mmol/L Potassium (3.5-5.1) mmol/L Chloride (98-107) mmol/L Carbon Dioxide (22-30) mmol/L Anion Gap (5-15) MEQ/L BUN (7-17) mg/dL Creatinine (0.52-1.04) mg/dL Estimated GFR ML/MIN Glucose (74-106) mg/dL POC Glucometer (74 to 106) mg/dL Lactic Acid (0.4-2.0) Calcium (8.4-10.2) mg/dL Magnesium (1.6-2.3) mg/dL Total Bilirubin (0.2-1.3) mg/dL AST (14-36) U/L ALT (0-35) U/L Alkaline Phosphatase (38-126) U/L Troponin I 0.017 (0.000-0.033) ng/mL NT-Pro-B Natriuret Pep (<300) pg/mL Serum Total Protein (6.3-8.2) g/dL Albumin (3.5-5.0) g/dL Triglycerides (30-150) mg/dL Cholesterol (50-200) mg/dL LDL Cholesterol (30-100) mg/dL HDL Cholesterol (40-60) mg/dL Heart Disease Risk Ratio Free T4 (0.78-2.19) ng/dL TSH 3rd Generation (0.470-4.680) mIU/L Urine Color (Yellow) Urine Appearance (Clear) Urine pH (4.6-8.0) Ur Specific [place] (1.005-1.030) Urine Protein (Negative) Urine Glucose (UA) (Negative) mg/dL Urine Ketones (Negative) Urine Blood (Negative) Urine Nitrite (Negative) Urine Bilirubin (Negative) Urine Urobilinogen (0.2) mg/dL Ur Leukocyte Esterase (Negative) U Hyaline Cast (Auto) (0-2) /LPF Urine Microscopic RBC (0-5) /HPF Urine Microscopic WBC (0-5) /HPF Ur Epithelial Cells (None Seen) /HPF Urine Bacteria (None Seen) /HPF Urine Culture Reflexed (NO) Urine Opiates Level NEGATIVE (NEGATIVE) Ur Methadone NEGATIVE (NEGATIVE) Urine Barbiturates NEGATIVE (NEGATIVE) Ur Phencyclidine (PCP) NEGATIVE (NEGATIVE) Urine Amphetamine NEGATIVE (NEGATIVE) U Benzodiazepine Level NEGATIVE (NEGATIVE) Urine Cocaine NEGATIVE (NEGATIVE) Urine Marijuana (THC) NEGATIVE (NEGATIVE) Influenza Type A Ag NEGATIVE (NEGATIVE) Influenza Type B Ag NEGATIVE (NEGATIVE) RSV (PCR) NEGATIVE (NEGATIVE) SARS-CoV-2 (PCR) NEGATIVE (NEGATIVE) 10/13/24 10/14/24 10/14/24 Range/Units 20:30 05:30 05:30 WBC 9.6 (3.98-10.04) x10^3/uL RBC 4.60 (3.93-5.22) x10^6/uL Hgb 13.7 D (11.2-15.7) g/dL Hct 41.9 (34.1-44.9) % MCV 91.1 (79.4-94.8) fL MCH 29.8 (25.6-32.2) pg MCHC 32.7 (32.2-35.5) g/dL RDW 13.3 (11.7-14.4) % Plt Count 352 (182-369) x10^3/uL MPV 10.3 (9.4-12.3) fL Gran % 53.4 (34.0-71.1) % Immature Gran % (Auto) 0.2 (0.001-0.429) % Nucleat RBC Rel Count 0.0 (0.00-0.2) % Eos # (Auto) 0.35 (0.04-0.36) x10^3/uL Immature Gran # (Auto) 0.02 (0.001-0.031) x10^3u/L Absolute Lymphs (auto) 3.27 (1.18-3.74) x10^3/uL Absolute Monos (auto) 0.77 (0.24-0.86) x10^3/uL Absolute Nucleated RBC 0.00 (0.00-0.012) x10^3u/L Lymphocytes % 34.0 (19.3-51.7) % Monocytes % 8.0 (4.7-12.5) % Eosinophils % 3.6 (0.7-5.8) % Basophils % 0.8 (0.1-1.2) % Absolute Granulocytes 5.13 (1.56-6.13) x10^3/uL Basophils # 0.08 (0.01-0.08) x10^3/uL D-Dimer (0.0-0.50) mg/L Sodium 140 (135-145) mmol/L Potassium 4.2 (3.5-5.1) mmol/L Chloride 109 H (98-107) mmol/L Carbon Dioxide 26 (22-30) mmol/L Anion Gap 9.5 (5-15) MEQ/L BUN 13 (7-17) mg/dL Creatinine 0.63 (0.52-1.04) mg/dL Estimated GFR 107.3 ML/MIN Glucose 109 H (74-106) mg/dL POC Glucometer (74 to 106) mg/dL Lactic Acid (0.4-2.0) Calcium 8.7 (8.4-10.2) mg/dL Magnesium (1.6-2.3) mg/dL Total Bilirubin 0.40 (0.2-1.3) mg/dL AST 24 (14-36) U/L ALT 18 (0-35) U/L Alkaline Phosphatase 38 (38-126) U/L Troponin I 0.019 (0.000-0.033) ng/mL NT-Pro-B Natriuret Pep (<300) pg/mL Serum Total Protein 5.9 L (6.3-8.2) g/dL Albumin 3.4 L (3.5-5.0) g/dL Triglycerides (30-150) mg/dL Cholesterol (50-200) mg/dL LDL Cholesterol (30-100) mg/dL HDL Cholesterol (40-60) mg/dL Heart Disease Risk Ratio Free T4 (0.78-2.19) ng/dL TSH 3rd Generation (0.470-4.680) mIU/L Urine Color (Yellow) Urine Appearance (Clear) Urine pH (4.6-8.0) Ur Specific [place] (1.005-1.030) Urine Protein (Negative) Urine Glucose (UA) (Negative) mg/dL Urine Ketones (Negative) Urine Blood (Negative) Urine Nitrite (Negative) Urine Bilirubin (Negative) Urine Urobilinogen (0.2) mg/dL Ur Leukocyte Esterase (Negative) U Hyaline Cast (Auto) (0-2) /LPF Urine Microscopic RBC (0-5) /HPF Urine Microscopic WBC (0-5) /HPF Ur Epithelial Cells (None Seen) /HPF Urine Bacteria (None Seen) /HPF Urine Culture Reflexed (NO) Urine Opiates Level (NEGATIVE) Ur Methadone (NEGATIVE) Urine Barbiturates (NEGATIVE) Ur Phencyclidine (PCP) (NEGATIVE) Urine Amphetamine (NEGATIVE) U Benzodiazepine Level (NEGATIVE) Urine Cocaine (NEGATIVE) Urine Marijuana (THC) (NEGATIVE) Influenza Type A Ag (NEGATIVE) Influenza Type B Ag (NEGATIVE) RSV (PCR) (NEGATIVE) SARS-CoV-2 (PCR) (NEGATIVE) 10/14/24 Range/Units 05:30 WBC (3.98-10.04) x10^3/uL RBC (3.93-5.22) x10^6/uL Hgb (11.2-15.7) g/dL Hct (34.1-44.9) % MCV (79.4-94.8) fL MCH (25.6-32.2) pg MCHC (32.2-35.5) g/dL RDW (11.7-14.4) % Plt Count (182-369) x10^3/uL MPV (9.4-12.3) fL Gran % (34.0-71.1) % Immature Gran % (Auto) (0.001-0.429) % Nucleat RBC Rel Count (0.00-0.2) % Eos # (Auto) (0.04-0.36) x10^3/uL Immature Gran # (Auto) (0.001-0.031) x10^3u/L Absolute Lymphs (auto) (1.18-3.74) x10^3/uL Absolute Monos (auto) (0.24-0.86) x10^3/uL Absolute Nucleated RBC (0.00-0.012) x10^3u/L Lymphocytes % (19.3-51.7) % Monocytes % (4.7-12.5) % Eosinophils % (0.7-5.8) % Basophils % (0.1-1.2) % Absolute Granulocytes (1.56-6.13) x10^3/uL Basophils # (0.01-0.08) x10^3/uL D-Dimer (0.0-0.50) mg/L Sodium (135-145) mmol/L Potassium (3.5-5.1) mmol/L Chloride (98-107) mmol/L Carbon Dioxide (22-30) mmol/L Anion Gap (5-15) MEQ/L BUN (7-17) mg/dL Creatinine (0.52-1.04) mg/dL Estimated GFR ML/MIN Glucose (74-106) mg/dL POC Glucometer (74 to 106) mg/dL Lactic Acid (0.4-2.0) Calcium (8.4-10.2) mg/dL Magnesium (1.6-2.3) mg/dL Total Bilirubin (0.2-1.3) mg/dL AST (14-36) U/L ALT (0-35) U/L Alkaline Phosphatase (38-126) U/L Troponin I (0.000-0.033) ng/mL NT-Pro-B Natriuret Pep (<300) pg/mL Serum Total Protein (6.3-8.2) g/dL Albumin (3.5-5.0) g/dL Triglycerides 174 H (30-150) mg/dL Cholesterol 197 (50-200) mg/dL LDL Cholesterol 127 H (30-100) mg/dL HDL Cholesterol 27 L (40-60) mg/dL Heart Disease Risk Ratio 7.0 Free T4 (0.78-2.19) ng/dL TSH 3rd Generation (0.470-4.680) mIU/L Urine Color (Yellow) Urine Appearance (Clear) Urine pH (4.6-8.0) Ur Specific [place] (1.005-1.030) Urine Protein (Negative) Urine Glucose (UA) (Negative) mg/dL Urine Ketones (Negative) Urine Blood (Negative) Urine Nitrite (Negative) Urine Bilirubin (Negative) Urine Urobilinogen (0.2) mg/dL Ur Leukocyte Esterase (Negative) U Hyaline Cast (Auto) (0-2) /LPF Urine Microscopic RBC (0-5) /HPF Urine Microscopic WBC (0-5) /HPF Ur Epithelial Cells (None Seen) /HPF Urine Bacteria (None Seen) /HPF Urine Culture Reflexed (NO) Urine Opiates Level (NEGATIVE) Ur Methadone (NEGATIVE) Urine Barbiturates (NEGATIVE) Ur Phencyclidine (PCP) (NEGATIVE) Urine Amphetamine (NEGATIVE) U Benzodiazepine Level (NEGATIVE) Urine Cocaine (NEGATIVE) Urine Marijuana (THC) (NEGATIVE) Influenza Type A Ag (NEGATIVE) Influenza Type B Ag (NEGATIVE) RSV (PCR) (NEGATIVE) SARS-CoV-2 (PCR) (NEGATIVE) Micro Results-Entire Visit: Accuchecks Date 10/13/24 Time 11:18 - Radiology Exams Ordered Rad Exams-Entire Visit: Radiology Procedures Category Date Time Status CHEST 1 VIEW (PORTABLE) Stat Exams 10/13/24 11:26 Completed CHEST WITHOUT CONTRAST [CT] Urgent Exams 10/14/24 10:19 Ordered HEAD WITHOUT CONTRAST [CT] Stat Exams 10/13/24 12:04 Completed - Procedures and Test Procedures and Tests throughout Hospitalization: Therapy Orders & Screens 10/13/24 14:43 Smoking Cessation Education ONCE Comment: Diagnosis: sinus tachycardia Smoking Status: Current every day smoker How long have you smoked: 20 Have you smoked in the past 12 months: Yes Approximately how many cigarettes per day: 7 Do you dip or chew tobacco: No If,Former Smoker,when did you quit: 02/201410/13/24 15:10 EKG REPEAT IN AM Comment: Diagnosis: sinus tachycardia 10/14/24 09:03 Holter Monitor ONCE Comment: Reason For Exam: SVT 2 week holter monitor Diagnosis: sinus tachycardia 10/14/24 09:55 Bardy 7-14 Day Holter ONCE Comment: Diagnosis: sinus tachycardia Final Diagnosis/Problem List - Final Discharge Diagnosis/Problem (1) SVT (supraventricular tachycardia) Current Visit: No Status: Resolved Code(s): I47.10 - SUPRAVENTRICULAR TACHYCARDIA, UNSPECIFIED (2) Left-sided weakness Current Visit: Yes Status: Resolved Code(s): R53.1 - WEAKNESS (3) Hypertension Current Visit: No Status: Chronic Code(s): I10 - ESSENTIAL (PRIMARY) HYPERTENSION (4) Leukocytosis Current Visit: No Status: Resolved Code(s): D72.829 - ELEVATED WHITE BLOOD CELL COUNT, UNSPECIFIED (5) Hyperlipidemia Current Visit: No Status: Chronic Code(s): E78.5 - HYPERLIPIDEMIA, UNSPECIFIED (6) Smoker Current Visit: No Status: Chronic Code(s): F17.200 - NICOTINE DEPENDENCE, UNSPECIFIED, UNCOMPLICATED (7) Type II diabetes mellitus Current Visit: No Status: Chronic - Discharge Discharge Date: 10/14/24 Disposition: Home, Self-Care Condition: Stable Prescriptions: New Aspirin 81 gm Chew [Baby Aspirin 81 mg Chew] 81 mg PO DAILY 30 Days #30 tab.chew Atorvastatin Calcium [Lipitor] 80 mg PO DAILY 30 Days #30 tablet Continue Famotidine [Pepcid] 40 mg PO HS Vilazodone HCl 40 mg PO HS Losartan Potassium 25 mg PO HS Estradiol/Norethindrone Acet [Estradiol-Noreth 0.5-0.1 mg Tb] 1 tab PO HS Metoprolol Succinate 25 mg PO HS Ascorbic Acid [C-1000] 1,000 mg PO HS Omeprazole 40 mg PO HS PRN PRN PRN Reason: GERD Tirzepatide [Mounjaro] 7.5 mg SQ WEEKLY Discontinued Pravastatin Sodium 20 mg PO HS Instructions: Sinus Tachycardia (DC) Additional Instructions: WEAR HOLTER MONITOR 14/02 FOR 2 WEEKS, THEN RETURN MONITOR TO HOSPITAL FOLLOW UP WITH DR MCGARRY Follow up with: SHELLI MCGARRY MD [CONSULTING PHYSICIAN] - (call Tuesday for appt) CHRISTIANA HEATH [Primary Care Provider] -
--- NOTE | 2024-10-14 12:16 | XRAY ---
CLINICAL HISTORY: L Sided weakness follow up COMPARISON: 10/13/2024T TECHNIQUE: Axial non-contrast CT scan of the brain was performed from the skull base to the high parietal region. One of the following dose reduction techniques were utilized for this exam: Automated exposure control, adjustment of the mA and/or kV according to patient size, use of iterative reconstruction. FINDINGS: Brain Parenchyma: Again left basal ganglia small hypodense focus possibly old lacunar infarction. No evidence of acute infarct, hemorrhage, or mass effect. Ventricular System: Ventricles are normal in size and configuration. No evidence of hydrocephalus or ventricular enlargement. Subarachnoid Spaces: Normal sulci and cisterns. No evidence of subarachnoid hemorrhage or extra-axial fluid collections. Cerebellum and Brainstem: Normal size and attenuation. No masses, lesions, or areas of abnormal attenuation. Orbits: Normal appearance of the globes, optic nerves, and extraocular muscles. No evidence of orbital masses or abnormal attenuation. Sinuses: Mild mucosal thickening is noted in the right maxillary sinus. Rest of the paranasal sinuses. Left-sided nasal spur. Mastoid Air Cells: Clear mastoid air cells. No evidence of mastoiditis. Skull: Normal skull morphology. IMPRESSION: Again left basal ganglia small hypodense focus possibly old lacunar infarction. No significant interval change. MRI brain DWI may be considered. Electronically Signed by: Sherwin Chung MD. (10/14/2024 12:11:09 EDT)
[2024-10-14] MEDS ORDERED: Pepcid 20 MG PO SCH (22:00)
[2024-10-14] MEDS ORDERED: Cozaar 50 MG PO SCH (22:00)
[2024-10-14] MEDS ORDERED: Vitamin C 500 MG PO SCH (22:00)
[2024-10-14] MEDS ORDERED: Toprol-Xl 25MG Tablets PO SCH (22:00)
[2024-10-14] MEDS ORDERED: ZOCOR 20MG PO SCH (22:00)
== END 2024-10-14 12:22 | disposition home or self-care (01) ==
LOC: ED 11:12 → MED SURG 14:15
PROVIDERS: ADMIT Internal Medicine; ATTEND Internal Medicine
DX: I47.10 Supraventricular tachycardia, unspecified (principal); R53.1 Weakness; I10 Essential (primary) hypertension; D72.829 Elevated white blood cell count, unspecified; E78.5 Hyperlipidemia, unspecified; F17.200 Nicotine dependence, unspecified, uncomplicated; E11.9 Type 2 diabetes mellitus without complications; R74.01 Elevation of levels of liver transaminase levels; G47.33 Obstructive sleep apnea (adult) (pediatric); Z79.899 Other long term (current) drug therapy; Z79.4 Long term (current) use of insulin
CPT/HCPCS: 0241U; 36415; 70450; 71045; 80053; 80061; 80307; 81001; 82947; 83605; 83721; 83735; 83880; 84439; 84443; 84484; 85025; 85379; 93005; 93041; 93246; 96374; 96375; 99285; Q3014; 93268; J0612; A9270-GY; G0378